=== PATIENT | male | born 1970 | race Caucasian/White ===

== ENCOUNTER 2024-03-16 20:05 | Emergency (ER) | payer BC, SELFPAY ==
[2024-03-16] VITALS (20 sets, daily range): BP systolic 121–148; BP diastolic 66–83; PULSE 49–66; RESP 16–18; TEMP 36.3; O2SAT 95–100; BMI 34.6
--- NOTE | 2024-03-16 20:52 | CRLHL7_ITS ---
For Patients: As a result of the Century Cures Act, medical imaging exams and procedure reports are released immediately into your electronic medical record. You may view this report before your referring provider. If you have questions, please contact your health care provider. INDICATION: Right upper quadrant pain, jaundice. TECHNIQUE: Ultrasound abdomen limited. Sonographic images of the right upper quadrant were obtained using santana-scale and color Doppler images. COMPARISON: None. FINDINGS: Liver: Diffuse increased hepatic echogenicity. No suspicious masses. No intrahepatic biliary dilatation. Gallbladder: Contains multiple stones and biliary sludge. Thickened gallbladder wall measuring 5 mm. No pericholecystic fluid identified. Negative sonographic Rodriguez`s sign. Common bile duct: At the upper limits of normal, measuring 7 mm. Pancreas: Not visualized due to bowel gas. Right kidney: Normal in size. Normal echotexture and cortex. No suspicious masses, stones, or hydronephrosis. Vasculature: Proximal IVC is unremarkable. IMPRESSION: 1. Cholelithiasis with thickened gallbladder wall. Despite negative sonographic Rodriguez`s, acute cholecystitis can not be entirely excluded. 2. Hepatic steatosis. Dictated by Dylan Villela MD @ 03/16/2024 11:41:51 PM (Electronically Signed)
--- NOTE | 2024-03-16 20:54 | ED_ITS ---
HPI - General Adult General Chief complaint: Weakness Stated complaint: Jaundice Time Seen by Provider: 03/16/24 20:30 Source: patient Mode of arrival: ambulatory Limitations: no limitations History of Present Illness HPI narrative: 54-year-old male presenting today to the ER because his family told him that he was yellow. Patient states that 1 week ago on Sunday he had an episode where he ate lunch and had terrible abdominal discomfort that lasted well into Sunday. Patient states that he feels bloated all the time and has felt that way since he was a kid but this abdominal pain was new. He does state that he drinks daily alcohol, slightly less than 1 L of hard liquor daily, stop drinking 12 days ago. He does have a history of GERD for which he takes esomeprazole. He states that he has been taking 3 per day for the last several days as he has been having increasing bloating. He states that about 2 weeks ago he had diarrhea and this has resolved. He states that he has small hard stools once or twice per day, few days ago he states that his stools were completely white. He denies vomiting but does feel nauseated on and off. He states that he has no appetite but does force himself to eat. He denies fevers or chills. He states that he abdominal pain is like a band that wraps around just underneath his ribs, the right side greater than the left. Patient also has a history of hypertension, he takes amlodipine, hydrochlorothiazide and lisinopril daily. He denies a history of intra-abdominal surgery in the past. Related Data Home Medications ?Medication ?Instructions ?Recorded ?Confirmed acid reflux med 03/16/24 amlodipine 10 mg tablet 10 mg PO DAILY 03/16/24 03/16/24 hydrochlorothiazide 25 mg tablet 25 mg PO DAILY 03/16/24 03/16/24 lisinopril 40 mg tablet 40 mg PO DAILY 03/16/24 03/16/24 Allergies Allergy/AdvReac Type Severity Reaction Status Date / Time No Known Drug Allergies Allergy Verified 03/16/24 20:25 Review of Systems Status of ROS: Reports: 10 or more systems reviewed and unremarkable except as noted in History and below PFSH PFSH Social History Smoking Status: Never smoker How often do you have a drink containing alcohol: 4 or more times a week AUDIT-C Alcohol total score: 4 Non-prescribed substance use: denies use Exam Narrative: Exam Narrative: Overweight, well-developed patient in no acute distress. Alert and oriented x3. Answers questions appropriately. Mood and affect are appropriate. Thoughts are goal oriented and rational. No tangential or magical thinking noted. Patient speaks in full sentences without needing to catch his breath. Well groomed. HEENT: Normocephalic atraumatic. Pupils are equally round reactive to light. Extraocular muscles are intact. Conjunctivae are moist , bilateral icterus noted. Moist mucous membranes. Posterior pharynx is normal. Neck is soft without any lymphadenopathy or thyromegaly. No masses are appreciated. Patient is lightly jaundice. Cardiovascular: Heart is regular rate and rhythm S1 and S2 are present without any murmurs. Lungs: Clear to auscultation bilaterally no wheezes rhonchi or rales are appreciated. Patient takes deep breaths without any discomfort. Abdomen: Soft and nondistended with normal bowel sounds. No guarding or rebound. No masses or organomegaly appreciated. Belly is protuberant. He has some very mild discomfort in the right upper quadrant with a negative Rodriguez sign. Extremities: Bilateral lower extremities are without edema. Normal DP and PT pulses. Skin: Well perfused . Patient has what appears to be around eczematous patch on the anterior left acevedo. Const: Vital Signs, click to edit/add: Vital Signs - 24 hr 03/16/24 20:26 03/16/24 20:52 03/16/24 21:19 Temperature 97.4 F L Pulse Rate 59 L Pulse Rate [Pulse Oximeter] 66 Respiratory Rate 18 16 Blood Pressure 134/78 Blood Pressure [Ri ght Upper Arm] 121/72 Pulse Oximetry 96 98 95 Oxygen Delivery Me thod Room Air 03/16/24 21:20 03/16/24 21:30 03/16/24 21:32 Temperature Pulse Rate 57 L 56 L 54 L Pulse Rate [Pulse Oximeter] Respiratory Rate 16 Blood Pressure 125/66 Blood Pressure [Ri ght Upper Arm] Pulse Oximetry 95 97 98 Oxygen Delivery Me thod 03/16/24 21:45 03/16/24 22:04 03/16/24 22:05 Temperature Pulse Rate 61 60 58 L Pulse Rate [Pulse Oximeter] Respiratory Rate 18 Blood Pressure 136/74 Blood Pressure [Ri ght Upper Arm] Pulse Oximetry 99 100 98 Oxygen Delivery Me thod 03/16/24 22:15 03/16/24 22:30 03/16/24 22:32 Temperature Pulse Rate 58 L 56 L 55 L Pulse Rate [Pulse Oximeter] Respiratory Rate 16 Blood Pressure 134/78 Blood Pressure [Ri ght Upper Arm] Pulse Oximetry 97 99 98 Oxygen Delivery Me thod Course Course ED Course: EKG, read by me, shows normal sinus rhythm with a pulse of 60. IV is established and patient received a L of normal saline. CBC is unremarkable. Normal lactate. Elevated LFTs, elevated direct bili Luis. CRP elevated at 3.5. Urinalysis positive for urine bilirubin. Right upper quadrant ultrasound showing cholelithiasis Vital Signs Vital signs: Initial Vital Signs Temperature 97.4 F L 03/16/24 20:26 Temperature Source Temporal Artery Scan 03/16/24 20:26 Pulse Rate 66 03/16/24 20:26 Respiratory Rate 18 03/16/24 20:26 Blood Pressure 121/72 03/16/24 20:26 Blood Pressure Mean 88 03/16/24 20:26 Blood Pressure Position Sitting 03/16/24 20:26 Pulse Oximetry 96 03/16/24 20:26 Oxygen Delivery Method Room Air 03/16/24 20:26 Vital Signs Temperature 97.4 F L 03/16/24 20:26 Pulse Rate 66 03/16/24 20:26 Respiratory Rate 18 03/16/24 20:26 Blood Pressure 121/72 03/16/24 20:26 Pulse Oximetry 96 03/16/24 20:26 Oxygen Delivery Method Room Air 03/16/24 20:26 Temperature 97.4 F L 03/16/24 20:26 Pulse Rate 55 L 03/16/24 22:32 Respiratory Rate 16 03/16/24 22:32 Blood Pressure 134/78 03/16/24 22:32 Pulse Oximetry 98 03/16/24 22:32 Oxygen Delivery Method Room Air 03/16/24 20:26 Medications Administered Medications: Discontinued Medications Generic Name Dose Route Start Last Admin Trade Name Freq PRN Reason Stop Dose Admin Sodium Chloride 1,000 mls @ 1,000 mls/hr 03/16/24 21:00 03/16/24 22:43 0.9 % Sodium Chloride 1000 Ml IV 03/16/24 21:59 Infused .Q1H KRYSTAL Infusion Medical Decision Making MDM Narrative Medical decision making narrative: 54-year-old male with cholelithiasis and probable choledocholithiasis. Patient will be transferred [place] [facility] [place]. Lab Data Lab results reviewed: Yes I reviewed the patient's lab results Labs: Lab Results 03/16/24 03/16/24 Range/Units 21:10 21:57 WBC 8.63 (4.50-11.00) K/uL RBC 4.68 (4.30-5.90) m/uL Hgb 14.6 (13.5-17.5) gm/dL Hct 42.8 (37.0-53.0) % MCV 92 (80-100) fL MCH 31 (26-34) pg MCHC 34 (32-36) gm/dL RDW Coeff of Luna 12.6 (11.5-15.5) % Plt Count 291 (140-440) K/uL Neut % (Auto) 78.3 H (42.0-72.0) % Lymph % (Auto) 10.0 L (20-44) % [place] % (Auto) 8.6 (0.0-11.0) % Eos % (Auto) 2.4 (0.0-7.0) % Baso % (Auto) 0.5 (0.0-3.0) % Neut # (Auto) 6.80 (1.7-7.0) K/uL Lymph # (Auto) 0.90 (0.90-2.90) K/uL [place] # (Auto) 0.70 (0.00-0.90) K/UL Eos # (Auto) 0.21 (0.00-0.50) K/uL Baso # (Auto) 0.04 (0.00-0.30) K/uL Abs Immat Gran (auto) 0.02 (0.00-0.30) K/uL Imm/Tot Granulo (auto) 0.2 % INR 1.01 (0.91-1.10) Sodium 131 L (135-149) mmol/L Potassium 3.3 L (3.6-5.1) mmol/L Chloride 91 L (96-114) mmol/L Carbon Dioxide 29 (20-32) mmol/L Anion Gap 11 (7-15) mEq/L BUN 16 (7-30) mg/dL Creatinine 1.0 (0.5-1.5) mg/dL Estimated Creat Clear 97.04 Estimated GFR 89 ml/min Glucose 119 H (60-115) mg/dL Lactate 1.3 (0.5-1.9) mmol/L Calcium 8.3 L (8.4-10.6) mg/dL Magnesium 2.4 (1.5-2.6) mg/dL Total Bilirubin 8.5 H (0.1-1.5) mg/dL Direct Bilirubin 7.4 H (0.0-0.5) mg/dL AST 269 H (12-35) U/L ALT 383 H (4-50) U/L Alkaline Phosphatase 154 H (40-150) U/L Troponin I < 0.01 L (0.01-0.04) ng/mL C-Reactive Protein 3.5 H (0.5-1.0) mg/dL Total Protein 8.2 (6.0-8.3) g/dL Albumin 4.3 (3.3-5.0) g/dL Lipase 146 (23-300) U/L Urine Color Yellow (Yellow) Urine Appearance Clear (Clear) Urine pH 7.0 (5.0-8.5) Ur Specific [place] 1.015 (1.000-1.030) Urine Protein Negative (Negative) Urine Glucose (UA) Negative (Negative) Urine Ketones Negative (Negative) Urine Blood Negative (Negative) Urine Nitrite Negative (Negative) Urine Bilirubin 3+ A (Negative) Urine Urobilinogen 1.0 (0.2-1.0) Ur Leukocyte Esterase Negative (Negative) Urine RBC 0-2 (0-2) Urine WBC 0-2 (0-5) Ur Squamous Epith Cells Moderate A (None-Few) Urine Bacteria None (None) Acetaminophen < 10.0 L (10.0-30.0) ug/mL Imaging Data US - abdomen: Attestation: I have reviewed the pertinent imaging results. Radiologist's impression: Right upper quadrant pain, jaundice. TECHNIQUE: Ultrasound abdomen limited. Sonographic images of the right upper quadrant were obtained using santana-scale and color Doppler images. COMPARISON: None. FINDINGS: Liver: Diffuse increased hepatic echogenicity. No suspicious masses. No intrahepatic biliary dilatation. Gallbladder: Contains multiple stones and biliary sludge. Thickened gallbladder wall measuring 5 mm. No pericholecystic fluid identified. Negative sonographic Rodriguez`s sign. Common bile duct: At the upper limits of normal, measuring 7 mm. Pancreas: Not visualized due to bowel gas. Right kidney: Normal in size. Normal echotexture and cortex. No suspicious masses, stones, or hydronephrosis. Vasculature: Proximal IVC is unremarkable. IMPRESSION: 1. Cholelithiasis with thickened gallbladder wall. Despite negative sonographic Rodriguez`s, acute cholecystitis can not be entirely excluded. 2. Hepatic steatosis. ECG Data Attestation: I personally reviewed and interpreted this ECG as follows: Discharge Plan Discharge Clinical Impression: Choledocholithiasis Patient Disposition: Xfer Other Discharge Location: [facility] Condition: Stable Prescriptions: No Action amlodipine 10 mg tablet 10 mg PO DAILY hydrochlorothiazide 25 mg tablet 25 mg PO DAILY lisinopril 40 mg tablet 40 mg PO DAILY acid reflux med Follow Up/Referrals: Javier Kilgore MD [Referring] - Stand Alone Forms: Pet[facility] Info Instructions
--- OUTSIDE RECORDS SUMMARY | 2024-03-16 21:07 | XMS_ITS | Referral Summary ---
Author Organization [facility] Address [address] [place] [id number] Care Team Providers Care Copyright Expert Name Role Phone Mikayla Concepcion MD Unavailable Clinic, [facility] [place] Primary Care Provider Allergies Active Allergy Reactions Criticality Noted Date Comments Omeprazole 08/04/2020 Patient states it gives him a lump in his throat Medications Medication Sig Dispensed Refills Start Date End Date Status RaNITidine HCl (ZANTAC PO) Take 150 mg by mouth Active lisinopril (ZESTRIL) 40 MG tabletIndications:Esse ntial hypertension Take 1 tablet (40 mg) by mouth daily 90 tablet 11/20/2022 Active hydrochlorothiazide (HYDRODIURIL) 25 MG tabletIndications:Esse ntial hypertension Take 1 tablet (25 mg) by mouth daily 90 tablet 11/20/2022 Active amLODIPine (NORVASC) 10 MG tabletIndications:Esse ntial hypertension Take 1 tablet (10 mg) by mouth daily 90 tablet 11/20/2022 Active Active Problems Problem Noted Date Diagnosed Date Morbid obesity 01/08/2018 Achilles tendinitis of both lower extremities GERD (gastroesophageal reflux disease) 2 Resolved Problems Problem Noted Date Diagnosed Date Resolved Date Backache 10/29/2012 12/25/2012 Overview: Problem list name updated by automated process. Provider to review CARDIOVASCULAR SCREENING; LD L GOAL LESS THAN 160 05/06/2012 02/07/2016 Hypertension goal BP (blood pressure) < 140/90 05/06/2012 05/19/2020 Obesity 05/06/2012 01/08/2018 Immunizations Name Administration Dates Next Due COVID-19 Monovalent 12+ (Pfizer 2021) 11/16/2021 COVID-19 Monovalent 18+ (Moderna) 01/07/2021, TDAP (Adacel,Boostrix) 11/16/2021,07/04/2011 Social History Tobacco Use Types Packs/Day Years Used Date Smoking Tobacco: Never Smokeless Tobacco: Former Chew Tobacco Cessation:Counseling Given: No Comments:quit chew 2 months ago Alcohol Use Standard Drinks/Week Comments Yes 0 (1 standard drink = 0.6 oz pur e alcohol) social PHQ-2 Answer Date Recorded PHQ-2 Score 0 11/16/2021 Adolescent Education Answer Date Record ed Getting School Help Needed Not on file 07/08 Sex and Gender Information Value Date Recorded Sex Assigned at Not on file Gender Identity Not on file Sexual Orientation Choose not to disclose 2021 10:09 AM CDT Last Filed Vital Signs Vital Sign Reading Time Taken Comments Blood Pressure 137/80 03/19/2023 12:29 AM CDT Pulse 72 03/19/2023 12:27 AM CDT Temperature 36.4 ??C (97.5 ??F) 03/19/2023 12:27 AM C DT Respiratory Rate 16 03/19/2023 12:27 AM CDT Oxygen Saturation 98% 03/19/2023 12:27 AM CDT Inhaled Oxygen Concentration - - Weight 147 kg (324 lb) 11/16/2021 10:40 AM FISH PROCESSOR Height 188 cm (6' 2) 11/16/2021 10:40 AM FISH PROCESSOR Body Mass Index 41.6 11/16/2021 10:40 AM FISH PROCESSOR Plan of Treatment Not on file Procedures Procedure Name Priority Date/Time Associated Diagnosis Comments HEPATITIS C SCREEN REFLEX TO HCV RNA QUANT AND GENOTYPE Routine 11/16/2021 2:54 PM FISH PROCESSOR Need for hepatitis C screening test LIPID REFLEX TO DIRECT LDL PANEL Routine 11/16/2021 11:32 AM FISH PROCESSOR Essential hypertension BASIC METABOLIC PANEL Routine 11/16/2021 11:32 AM FISH PROCESSOR Essential hypertension COLONOSCOPY Routine 03/07/2016 11:08 AM CDT from Last 3 Months or Most Recently Relevant to Health Maintenance Results * Hepatitis C Screen Reflex to HCV RNA Quant and Genotype (11/16/2021 2:54 PM FISH PROCESSOR) Hepatitis C Antibody Nonreactive Nonreactive 11/18/2021 9:12 AM FISH PROCESSOR [facility] DO Blood VENOUS BLOOD / Unknown Venipuncture / Unknown 11/16/2021 2:54 PM FISH PROCESSOR 11/16/2021 2:54 PM FISH PROCESSOR Narrative [facility] - 11/18/2021 9:12 AM FISH PROCESSOR Assay performance characteristics have not been established for newborns, infants, and children. Kenneth Giles MD LAB - BLOOD ORDERABL ES [facility], Room [address] [phone] * Lipid panel reflex to direct LDL Fasting (11/16/2021 11:32 AM FISH PROCESSOR) Cholesterol 188 <200 mg/dL 11/17/2021 7:58 AM FISH PROCESSOR [facility] Triglycerides 111 <150 mg/dL 11/17/2021 7:58 AM FISH PROCESSOR [facility] Direct Measure HDL 70 >=40 mg/dL 11/17/2021 7:58 AM FISH PROCESSOR [facility] LDL Cholesterol Calculated 96 <=100 mg/dL 11/17/2021 7:58 AM FISH PROCESSOR [facility] Non HDL Cholesterol 118 <130 mg/dL 11/17/2021 7:58 AM FISH PROCESSOR [facility] Patient Fasting > 8hrs? Unknown 11/17/2021 7:58 AM FISH PROCESSOR [facility] Blood BLOOD SPECIMEN / Unknown Venipuncture / Unknown 11/16/2021 11:32 AM FISH PROCESSOR 11/16/2021 11:32 AM FISH PROCESSOR Narrative [facility] - 11/17/2021 7:58 AM FISH PROCESSOR Cholesterol Desirable: ??<200 mg/dL Triglycerides Normal: ??Less than 150 mg/dL Borderline High: ??150-199 mg/dL High: ??200-499 mg/dL Very High: ??Greater than or equal to 500 mg/dL Direct Measure HDL Female: ??Greater than or equal to 50 mg/dL Male: ??Greater than or equal to 40 mg/dL LDL Cholesterol Desirable: ??<100mg/dL Above Desirable: ??100-129 mg/dL Borderline High: ??130-159 mg/dL High: ??160-189 mg/dL Very High: ??>= 190 mg/dL Non HDL Cholesterol Desirable: ??130 mg/dL Above Desirable: ??130-159 mg/dL Borderline High: ??160-189 mg/dL High: ??190-219 mg/dL Very High: ??Greater than or equal to 220 mg/dL Kenneth Giles MD LAB - BLOOD ORDERABL ES [facility] [address] Lab (no room number, 1st floor of clinic) [place] [address], [facility] [phone] * (ABNORMAL) Basic metabolic panel (Ca, Cl, CO2, Creat, Gluc, K, Na, BUN) (11/16/2021 11:32 AM FISH PROCESSOR) Sodium 134 133 - 144 mmol/L 11/17/2021 7:56 AM [email or web address] Potassium 3.3(L) 3.4 - 5.3 mmol/L 11/17/2021 7:56 AM FISH PROCESSOR [facility] Chloride 100 94 - 109 mmol/L 11/17/2021 7:56 AM FISH PROCESSOR [facility] Carbon Dioxide (CO2) 28 20 - 32 mmol/L 11/17/2021 7:56 AM FISH PROCESSOR [facility] Anion Gap 6 3 - 14 mmol/L 11/17/2021 7:56 AM FISH PROCESSOR [facility] Urea Nitrogen 14 7 - 30 mg/dL 11/17/2021 7:56 AM FISH PROCESSOR [facility] Creatinine 0.85 0.66 - 1.25 mg/dL 11/17/2021 7:56 AM FISH PROCESSOR [facility] Calcium 8.6 8.5 - 10.1 mg/dL 11/17/2021 7:56 AM FISH PROCESSOR [facility] Glucose 112(H) 70 - 99 mg/dL 11/17/2021 7:56 AM FISH PROCESSOR [facility] GFR Estimate >90 >60 mL/min/1.7 3m2 11/17/2021 7:56 AM FISH PROCESSOR [facility] Comment:Effective August 252020 eGFRcr in adults is calculated using the 2020 CKD-EPI creatinine equation which includes age and gender (Tabatha et al., NEJM, DOI: 10.1056/OZNBdx2430179) Blood BLOOD SPECIMEN / Unknown Venipuncture / Unknown 11/16/2021 11:32 AM FISH PROCESSOR 11/16/2021 11:32 AM FISH PROCESSOR Kenneth Giles MD LAB - BLOOD ORDERABL ES [facility] Lab [address] [place] [address] Lab (no room number, 1st floor of clinic) [place] [address], [facility] [phone] * COLONOSCOPY (03/07/2016 11:08 AM CDT) COLONOSCOPY [facility] Patient Name: Narciso Resendiz ?Procedure Date: 03/07/2016 11:08 AM ? Date of : 1970 ?Admit Type: Outpatient Age: 46 ? Gender: Male Attending MD: Pelon Taylor MD ?Instrument Name: 136 Procedure: ?Colonoscopy Indications: ?Screening patient at increased risk: Family history ?1st-degree relative with colorectal cancer >= 60 ?years old Providers: ?Pelon Taylor MD, Linda Ashley RN (Nurse) Referring MD: ? Kenneth Giles MD Medicines: ?Midazolam 2 mg IV, Fentanyl 100 micrograms IV Complications: ?No immediate complications. Procedure: ?Pre-Anesthesia Assessment: ?- Prior to the procedure, a History and Physical ?was performed, and patient medications and ?allergies were reviewed. The patient is competent. ?The risks and benefits of the procedure and the ?sedation options and risks were discussed with the ?patient. All questions were answered and informed ?consent was obtained. Patient identification and ?proposed procedure were verified by the physician ?in the procedure room. Mental Status Examination: ?alert and oriented. Airway Examination: normal ?oropharyngeal airway and neck mobility. Respiratory ?Examination: clear to auscultation. CV Examination: ?normal. Prophylactic Antibiotics: The patient does ?not require prophylactic antibiotics. Prior ?Anticoagulants: The patient has taken no previous ?anticoagulant or antiplatelet agents. ASA Grade ?Assessment: I - A normal, healthy patient. After ?reviewing the risks and benefits, the patient was ?deemed in satisfactory condition to undergo the ?procedure. The anesthesia plan was to use moderate ?sedation / analgesia (conscious sedation). ?Immediately prior to administration of medications, ?the patient was re-assessed for adequacy to receive ?sedatives. The heart rate, respiratory rate, oxygen ?saturations, blood pressure, adequacy of pulmonary ?ventilation, and response to care were monitored ?throughout the procedure. The physical status of ?the patient was re-assessed after the procedure. ?After obtaining informed consent, the colonoscope ?was passed under direct vision. Throughout the ?procedure, the patient's blood pressure, pulse, and ?oxygen saturations were monitored continuously. The ?[id number] was introduced through the anus and ?advanced to the cecum, identified by appendiceal ?orifice and ileocecal valve. The colonoscopy was ?performed without difficulty. The patient tolerated ?the procedure well. The quality of the bowel ?preparation was good. ? Findings: ? The perianal and digital rectal examinations were normal. ? The entire examined colon appeared normal on direct and retroflexion ? views. ? Impression: ? - The entire examined colon is normal on direct and ?retroflexion views. Recommendation: ? - Repeat colonoscopy in 5 years for surveillance. ? Procedure Code(s): ? --- Professional --- ? G0105, Colorectal cancer screening; colonoscopy on individual at high ? risk Diagnosis Code(s): ? --- Professional --- ? Z80.0, Family history of malignant neoplasm of digestive organs CPT copyright 2013 [employer] [place] [employer]. All rights reserved. The codes documented in this report are preliminary and upon certified procedural coder review may be revised to meet current compliance requirements. Electronically signed by Pelon Taylor MD __ Pelon Taylor MD 03/07/2016 12:53 PM I was physically present for the entire viewing portion of the exam. Number of Addenda: 0 Note Initiated On: 03/07/2016 11:08 AM MRN: [id number] Procedure Date: ? 03/07/2016 11:08:07 AM Scope Withdrawal Time: 0 hours 6 minutes 22 seconds Total Procedure Duration: 0 hours 11 minutes 39 seconds Estimated Blood Loss: ? Scope In: 12:33:30 PM Scope Out: 12:45:09 PM RADIOLOGY RESULTS 03/07/2016 11:0 8 AM CDT Kenneth Glies MD PROCEDURES RADIOLOGY RESULTS from Last 3 Months or Most Recently Relevant to Health Maintenance Care Teams Copyright Expert Relationship Specialty Start Date End Date [facility], [facility] [address] [place] [address] PCP - General 03/19/23 [place] [id number] [place] [address] Assigned PCP 04/08/22
--- OUTSIDE RECORDS SUMMARY | 2024-03-16 21:07 | XMS_ITS | Encounter Summary ---
Author Organization [place] Address [address] [place] [address] Care Team Providers Care Booking Manager Name Role Phone Kenneth Giles MD Primary Care Provider [phone] Tammy Sinclair APRN KELP OR SEAGRASS GATHERER Unavailable + Kenneth Giles MD Unavailable [phone] Mikayla Concepcion MD Unavailable Kenneth Giles MD Unavailable [phone] Mikayla Concepcion MD Unavailable Kenneth Giles MD Unavailable +[phone] Mikayla Concepcion MD Unavailable [facility] Primary Care Provider Encounter Details Date Type Department Care Team (Late st Contact Info) Description 03/17/2019 [facility] Medical Advice [facility] [id number] [place] [address] Carrol Rosenberg Social History Tobacco Use Types Packs/Day Years Used Date Smoking Tobacco: Never Smokeless Tobacco: Former Chew Comments:quit chew 2 months ago Alcohol Use Standard Drinks/Week Comments Yes 0 (1 standard drink = 0.6 oz pur e alcohol) social PHQ-2 Answer Date Recorded PHQ-2 Score 0 10/01/2018 Sex and Gender Information Value Date Recorded Sex Assigned at Not on file Gender Identity Not on file Sexual Orientation Choose not to disclose 2021 10:09 AM CDT documented as of this encounter Plan of Treatment Not on file documented as of this encounter Visit Diagnoses Not on filedocumented in this encounter Care Teams Booking Manager Relationship Specialty Start Date End Date Kenneth Giles MD PCP - General Family Practice 05/13/13 07/23/22 [facility] [address] [place] [address] PCP - General 03/19/23 Tammy Sinclair APRN KELP OR SEAGRASS GATHERER [address] [place] [address] Assigned PCP 01/12/19 10/25/19 [place] [address] [place] [address] Assigned PCP 10/26/19 05/21/21 [place] [address] [place] [address] Assigned PCP 05/22/21 10/01/21 [place] [address] [place] [address] Assigned PCP 10/02/21 11/19/21 [place] [address] [place] [address] Assigned PCP 11/20/21 11/26/21 [place] [address] [place] [address] Assigned PCP 11/27/21 04/07/22 [place] [address] [place] [address] Assigned PCP 04/08/22 documented as of this encounter
--- OUTSIDE RECORDS SUMMARY | 2024-03-16 21:07 | XMS_ITS | Clinical Summary ---
Author Organization [facility] Address [place], [place] [address] Care Team Providers Care Commercial Singer Name Role Phone Kenneth Giles MD Primary Care Provider [phone] Allergies Active Allergy Reactions Criticality Noted Date Comments Unlisted Allergen (Include Detail In Comments) Runny Nose 09/02/2012 Dust hayfever cats dogs ragwee Medications Medication Sig Dispensed Refills Start Date End Date Status amLODIPine (NORVASC) 10 mg tabletIndications:Esse ntial hypertension Take 1 Tablet (10 mg) by mouth once daily. 100 Tablet 2 05/23/2023 Active lisinopriL (PRINIVIL; ZESTRIL) 40 mg tabletIndications:Prim argenis hypertension Take 1 Tablet (40 mg) by mouth once daily. 90 Tablet 4 06/05/2023 Active hydroCHLOROthiazide (HCTZ) 25 mg tabletIndications:Prim argenis hypertension Take 1 Tablet (25 mg) by mouth once daily. 90 Tablet 4 06/05/2023 Active Active Problems Problem Noted Date Diagnosed Date Primary hypertension 06/05/2023 Resolved Problems Problem Noted Date Diagnosed Date Resolved Date HYPERTENSION - ESSENTIAL 11/06/200503/2023 Immunizations Name Administration Dates Next Due COVID-19 vaccine (Moderna 100mcg/0.5mL) KENYON RENAE 01/07/2021,12/10/2020 COVID-19 vaccine ([email or web address]-Bio NTech 30mcg/0.3mL) 12YO+ MASHA-SUCROSE KENYON RENAE 11/16/2021 Tdap 11/16/2021,07/04/2011 Family History Medical History Relation Name Comments Cancer-colon Father Genetic Other Father : HTN.~M other: Had breast cancer.~No CAD.~Grandparents : Lung cancer.~2 sister. 2 brothers Arthritis Sister Asthma Sister Hypertension Sister Relation Name Status Comments Brother 1 Alive Brother 2 Alive Father Mother Other Sister Alive Social History Tobacco Use Types Packs/Day Years Used Date Smoking Tobacco: Never Smokeless Tobacco: Former Chew Comments:quit chew 2002 Alcohol Use Standard Drinks/Week Comments Yes 0 (1 standard drink = 0.6 oz pur e alcohol) rare, Alcoholic Drinks/day: 0 Social Connections Answer Date Recorded Frequency of Communication with Friends and Fami ly 0 06/05/2023 Financial Resource Strain Answer Date R ecorded Difficulty of Paying Living Expenses 3 06/05/2023 Difficulty of Paying Living Expenses Not on file 06/05/2023 Food Insecurity Answer Date Recorded Worried About Running Out of Food in the Last Ye ar 1 06/05/2023 Transportation Needs Answer Date Record ed Lack of Transportation (Medical) 1 06/05/2023 Housing Stability Answer Date Recorded Unable to Pay for Housing in the Last Year 1 06/05/2023 Sex and Gender Information Value Date Recorded Sex Assigned at Not on file Gender Identity Not on file Sexual Orientation Not on file Obstetrics History Last Filed Vital Signs Vital Sign Reading Time Taken Comments Blood Pressure 130/80 06/05/2023 12:41 PM CDT Pulse 88 06/05/2023 12:41 PM CDT Temperature 36.8 ??C (98.2 ??F) 02/18/2021 1:50 PM CD T Respiratory Rate 16 02/18/2021 2:20 PM CDT Oxygen Saturation 97% 02/27/2023 11:59 AM CDT Inhaled Oxygen Concentration - - Weight 135.2 kg (298 lb) 06/05/2023 12:41 PM CDT Height 190.5 cm (6' 3) 06/05/2023 12:41 PM CDT Body Mass Index 37.25 06/05/2023 12:41 PM CDT Plan of Treatment Health Maintenance Due Date Last Done Comments Depression screening for age 12+ 1981 HIV for age 15-65 02/10/1984 Lipids for age 45-75 2014 11/06/2005 Zoster (shingles) series for age 50+ (1 of 2) 2019 COVID-19 vaccine series ( season) 2023 11/16/2021, 01/07/2021, 12/10/2020 Influenza for age 50-64 05/25/2024 BMI (ht and wt on same day) for age 18+ 06/05/2024 06/05/2023, 03/30/2023, 02/27/2023 Colonoscopy through age 75 03/07/202603/07 (Verified in Care Everywhere or Patient Record) Tetanus booster 11/16/2031 11/16/2021, 07/04/2011 Hepatitis C screening for age 18-79 Addressed 11/16/2021 (Verified in Care Everywhere or Patient Record) Overridden with the intention of not completing the topic Tdap Completed 11/16/2021, 07/04/2011 Pneumococcal series for age 6-64 Aged Out No longer eligible b ased on patient's age to complete this topic Medical Devices Implanted Type Area External Grinder Tender Device Identifier Shelf Expiration Date Model / Serial / Lot Ancr Sut [id number] Swivelock Dbl Loaded - [id number] Implanted:Qty: 2 on 02/18/2021 by Jose Alberto Rosario MD at [facility] Right: Shoulder [employer] 11/21/2024 [id number] -2 / / [id number] Ancr Sut 4.75x19.1mm Speedbridge Swivelock Biocomposite - [id number] Implanted:Qty: 1 on 02/18/2021 by Jose Alberto Rosario MD at [facility] Right: Shoulder [employer] 09/23/2024 [id number] -4 / / [id number] Procedures Procedure Name Priority Date/Time Associated Diagnosis Comments LIPID PANEL Timed 11/06/2005 1:26 PM [facility] from Last 3 Months or Most Recently Relevant to Health Maintenance Results * LIPID PANEL (11/06/2005 1:26 PM [facility]) CHOLESTEROL,TOTAL 168 110 - 199 mg/dL [facility] TRIGLYCERIDES 57 40 - 149 mg/dL [facility] HDL CHOLESTEROL 43 >40 mg/dL [facility] CHOL/HDL RATIO 3.91 <4.51 [facility] LDL CHOLESTEROL 114 <131 mg/dL [facility] PATIENT STATUS Fasting [facility] 11/06/2005 1:26 PM [facility] 11/06/2005 6:43 PM [facility] Merrill Lawson MD [facility] INTERNAL ZIP [address] [address] from Last 3 Months or Most Recently Relevant to Health Maintenance Advance Directives * Full Code (Latest Code Status on File) Date Activated Date Inactivated Comments 02/18/2021 9:53 AM 02/18/2021 5:02 PM Admitted for surgical management, assume full code during operative period Question Answer Comments Code Status Discussion: Not Discussed * Full Code Date Activated Date Inactivated Comments 09/03/2012 7:25 AM 09/03/2012 2:47 PM Care Teams Commercial Singer Relationship Specialty [place] [address] [place] [address] PCP - General Family Practice 02/27/23
--- OUTSIDE RECORDS SUMMARY | 2024-03-16 21:07 | XMS_ITS | Encounter Summary ---
Author Organization [place] Address [address] [place] [address] Care Team Providers Care Crew Dispatcher Name Role Phone Kenneth Giles MD Primary Care Provider + [phone] Kenneth Giles MD Unavailable [phone] Mikayla Concepcion MD Unavailable Kenneth Giles MD Unavailable [phone] Mikayla Concepcion MD [facility] [place] Primary Care Provider Encounter Details Date Type Department Care Team (Late st Contact Info) Description 11/17/2021 [facility] [address] [address] Nathalia Vasquez MA Social History Tobacco Use Types Packs/Day Years Used Date Smoking Tobacco: Never Smokeless Tobacco: Former Chew Comments:quit chew 2 months ago Alcohol Use Standard Drinks/Week Comments Yes 0 (1 standard drink = 0.6 oz pur e alcohol) social PHQ-2 Answer Date Recorded PHQ-2 Score 0 11/16/2021 Sex and Gender Information Value Date Recorded Sex Assigned at Not on file Gender Identity Not on file Sexual Orientation Choose not to disclose 2021 10:09 AM CDT COVID-19 Exposure Response Date Recorded In the last month, have you been in contact with someone who was confirmed or suspected to have Coronavirus / COVID-19? No / Unsure 11/16/2021 10:26 AM DOLL SURGEON documented as of this encounter Plan of Treatment Not on file documented as of this encounter Visit Diagnoses Not on filedocumented in this encounter Care Teams Crew Dispatcher Relationship Specialty Start Date End Date Kenneth Giles MD PCP - General Family Practice 05/13/13 07/23/22 [facility] [address] [place] [address] PCP - General 03/19/23 [place] [address] [place] [address] Assigned PCP 10/02/21 11/19/21 [place] [address] [place] [address] Assigned PCP 11/20/21 11/26/21 [place] [address] [place] [address] Assigned PCP 11/27/21 04/07/22 [place] [address] [place] [address] Assigned PCP 04/08/22 documented as of this encounter
--- OUTSIDE RECORDS SUMMARY | 2024-03-16 21:07 | XMS_ITS | Encounter Summary ---
Author Organization [place] Address [address] [place] [address] Care Team Providers Care Microbiology Technologist Name Role Phone Kenneth Giles MD Primary Care Provider Tammy Sinclair APRN LOAN AND CREDIT MANAGER Unavailable + Kenneth Giles MD Unavailable [phone] Mikayla Concepcion MD Unavailable Kenneth Giles MD Unavailable [phone] Mikayla Concepcion MD Unavailable Kenneth Giles MD Unavailable [phone] Mikayla Concepcion MD [facility] [place] [facility] Provider Encounter Details Date Type Department Care Team (Late st Contact Info) Description 07/01/2019 [facility]ice [address], [address] [place] [address] Hansa Pedersen, EDITING INTER[employer]IP Social History Tobacco Use Types Packs/Day Years Used Date Smoking Tobacco: Never Smokeless Tobacco: Former Chew Comments:quit chew 2 months ago Alcohol Use Standard Drinks/Week Comments Yes 0 (1 standard drink = 0.6 oz pur e alcohol) social PHQ-2 Answer Date Recorded PHQ-2 Score 0 04/08/2019 Sex and Gender Information Value Date Recorded Sex Assigned at Not on file Gender Identity Not on file Sexual Orientation Choose not to disclose 2021 10:09 AM CDT documented as of this encounter Plan of Treatment Not on file documented as of this encounter Visit Diagnoses Not on filedocumented in this encounter Care Teams Microbiology Technologist Relationship Specialty Start Date End Date Kenneth Giles MD PCP - General Family Practice 05/13/13 [facility] [address] [place] [address] PCP - General 03/19/23 Tammy Sinclair APRN LOAN AND CREDIT MANAGER [address] [place] [address] Assigned PCP 01/12/19 10/25/19 [place] [address] [place] [address] Assigned PCP 10/26/19 05/21/21 [place] [address] [place] [address] Assigned PCP 05/22/21 10/01/21 [place] [address] [place] [address] Assigned PCP 10/02/21 11/19/21 [place] [address] [place] [address] Assigned PCP 11/20/21 11/26/21 [place] [address] [place] [address] Assigned PCP 11/27/21 04/07/22 [place] [address] [place] [address] Assigned PCP 04/08/22 documented as of this encounter
--- OUTSIDE RECORDS SUMMARY | 2024-03-16 21:07 | XMS_ITS | Encounter Summary ---
Author Organization [place] Address [address] [place] [address] Care Team Providers Care Locomotive Crane Operator Helper Name Role Phone Kenneth Giles MD Primary Care Provider + [phone] Kenneth Giles MD Unavailable [phone] Mikayla Concepcion MD Unavailable Kenneth Giles MD Unavailable [phone] Mikayla Concepcion MD Unavailable Kenneth Giles MD Unavailable [phone] Mikayla Concepcion MD Unavailable [facility] [place] Primary Care Provider Encounter Details Date Type Department Care Team (Late st Contact Info) Description 02/17/2021 [facility] Advice [address] [address] Keagan Weaver, RN Social History Tobacco Use Types Packs/Day Years Used Date Smoking Tobacco: Never Smokeless Tobacco: Former Chew Comments:quit chew 2 months ago Alcohol Use Standard Drinks/Week Comments Yes 0 (1 standard drink = 0.6 oz pur e alcohol) social PHQ-2 Answer Date Recorded PHQ-2 Score 0 02/14/2021 Sex and Gender Information Value Date Recorded Sex Assigned at Not on file Gender Identity Not on file Sexual Orientation Choose not to disclose 2021 10:09 AM CDT COVID-19 Exposure Response Date Recorded In the last month, have you been in contact with someone who was confirmed or suspected to have Coronavirus / COVID-19? No / Unsure 02/14/2021 4:25 PM CDT documented as of this encounter Plan of Treatment Not on file documented as of this encounter Visit Diagnoses Not on filedocumented in this encounter Care Teams Locomotive Crane Operator Helper Relationship Specialty Start Date End Date Kenneth Giles MD PCP - General Family Practice 05/13/13 07/23/[address] [facility] [address] [address] PCP - General 03/19/23 [place] [address] [place] [address] Assigned PCP 10/26/19 05/21/21 [place] [address] [place] [address] Assigned PCP 05/22/21 10/01/21 [place] [address] [address] [place] [address] Assigned PCP 10/02/21 11/19/21 [place] [address] [place] [address] Assigned PCP 11/20/21 11/26/21 [place] [address] [place] [address] Assigned PCP 11/27/21 04/07/22 [place] [address] [place] [address] Assigned PCP 04/08/22 documented as of this encounter
--- OUTSIDE RECORDS SUMMARY | 2024-03-16 21:07 | XMS_ITS | Encounter Summary ---
Author Organization [place] Address [address] [place] [address]. [place] [address] Care Team Providers Care Pea Viner Mechanic Name Role Phone Kenneth Giles MD Primary Care Provider Tammy Sinclair APRN [place]AL Unavailable + Kenneth Giles MD Unavailable [phone] Mikayla Concepcion MD Unavailable Kenneth Giles MD Unavailable [phone] Mikayla Concepcion MD Unavailable Kenneth Giles MD Unavailable [phone] Mikayla Concepcion MD [facility]available [facility] [place] Primary Care Provider Encounter Details Date Type Department Care Team (Late st Contact Info) Description 08/05/2019 [facility] [address] [place] [address] [place] [address] [place] [address] Social History Tobacco Use Types Packs/Day Years [...] on filedocumented in this encounter Care Teams Pea Viner Mechanic Relationship Specialty Start Date End Date Kenneth Giles MD PCP - General Family Practice 05/13/13 07/23/22 [facility] [address] [place] [address] PCP - General 03/19/23 Tammy Sinclair APRN [facility] [address] [place] [address] Assigned PCP 01/12/19 10/25/19 [place] [address] [place] [address] Assigned PCP 10/26/19 05/21/21 [place] [address] [place] [address] Assigned PCP 05/22/21 10/01/21 [place] [address] [address] [place] [address] Assigned PCP 10/02/21 11/19/21 [place] [address] [place] [address] Assigned PCP 11/20/21 11/26/21 [place] [address] [place] [address] Assigned PCP 11/27/21 04/07/22 [place] [address] [place] [address] Assigned PCP 04/08/22 documented as of this encounter
--- OUTSIDE RECORDS SUMMARY | 2024-03-16 21:07 | XMS_ITS | Encounter Summary ---
Author Organization [place] Address [address] [place] [address] Care Team Providers Care Asset Protection Agent Name Role Phone Kenneth Giles MD Primary Care Provider + [phone] Kenneth Giles MD Unavailable [phone] Mikayla Concepcion MD Unavailable Kenneth Giles MD Unavailable [phone] Mikayla Concepcion MD Unavailable Kenneth Giles MD Unavailable [phone] Mikayla Concepcion MD [facility]available [facility] Provider Reason for Visit * Reason Comments Medication Refill Encounter Details Date Type Department Care Team (Late st Contact Info) Description 04/19/2020 Refill [facility] [id number] [place] [address] [place] [address] [place] [address] Medication Refill Social History Tobacco Use Types Packs/Day Years [...] have Coronavirus / COVID-19? No / Unsure 04/19/2020 1:58 PM CDT documented as of this encounter Miscellaneous Notes * Telephone Encounter - Barb Easley RN - 04/19/2020 1:50 PM CDT Routing refill request to provider for review/approval because: Labs not current: All labs Patient needs to be seen because it has been more than 1 year since last office visit. Pt is aware and is trying to schedule an appt Barb Easley RN, BSN documented in this encounter Plan of Treatment Not on file documented as of this encounter Visit Diagnoses Diagnosis Hypertension goal BP (blood pressure) < 140/90 Unspecified essential hypertension documented in this encounter Care Teams Asset Protection Agent Relationship Specialty Start Date End Date Kenneth Giles MD PCP - General Family Practice 05/13/13 07/23/22 [facility] [address] [place] [address] PCP - General 03/19/23 [place] [address] [place] [address] Assigned PCP 10/26/19 05/21/21 [place] [address] [place] [address] Assigned PCP 05/22/21 10/01/21 [place] [address] [place] [address] Assigned PCP 10/02/21 11/19/21 [place] [address] [place] [address] Assigned PCP 11/20/21 11/26/21 [place] [address] [place] [address] Assigned PCP 11/27/21 04/07/22 [place] [address] [place] [address] Assigned PCP 04/08/22 documented as of this encounter
--- OUTSIDE RECORDS SUMMARY | 2024-03-16 21:07 | XMS_ITS | Clinical Summary ---
Author Organization [facility] Address [address] [place] [address] Care Team Providers Care News Wire Photo Operator Name Role Phone Mikayla Concepcion MD Unavailable Clinic, [facility] [place] Primary Care Provider Allergies Active Allergy Reactions [...] Monovalent 18+ (Moderna) 01/07/2021, TDAP (Adacel,Boostrix) 11/16/2021,07/04/2011 Family History Medical History Relation Comments Cancer - colorectal Father Hypertension Father Cancer Maternal Grandfather Cancer Maternal Grandmother Diabetes Maternal Grandmother Breast Cancer Mother Cancer Paternal Grandfather Cancer - colorectal Paternal Grandfather Cancer Paternal Grandmother Relation Status Comments Father Maternal Grandfather Maternal Grandmother Mother Paternal Grandfather Paternal Grandmother Social History Tobacco Use Types Packs/Day Years [...] 147 kg (324 lb) 11/16/2021 10:40 AM GIMP TACKER Height 188 cm (6' 2) 11/16/2021 10:40 AM GIMP TACKER Body Mass Index 41.6 11/16/2021 10:40 AM GIMP TACKER Plan of Treatment Health Maintenance Due Date Last Done Comments CT COLONOGRAPHY 1969 FIT 1969 FLEX SIG 1969 sDNA (Cologuard) 1969 HEPATITIS B IMMUNIZATION (1 of 3 - 19+ 3-dose series) 02/10/1988 ZOSTER IMMUNIZATION (1 of 2) 2019 YEARLY PREVENTIVE VISIT 04/08/2020 04/08/20 19, 02/07/2016, 02/03/2015 COLONOSCOPY 03/07/2021 03/07/2016, 03/07/2016 COLORECTAL CANCER SCREENING 03/07/2021 ANNUAL REVIEW OF HM ORDERS 11/16/2022 11/16/2021 BMP 11/16/2022 11/16/2021, 01/23, 05/19/2020, Additional history exists COVID-19 Vaccine ( season) 2023 11/16/2021, 01/07/2021, 12/10/2020 PHQ-2 (once per calendar year) 2023 11/16/2021, 02/14/2021, 05/19/2020, Additional history exists INFLUENZA VACCINE (Season Ended) 2024 07/04/2018 (Declined) GLUCOSE 11/16/2024 11/16/2021, 01/23, 05/19/2020, Additional history exists ADVANCE CARE PLANNING 02/14/2026 02/14/2021 LIPID 11/16/2026 11/16/2021, 03/24, 02/07/2016, Additional history exists DTAP/TDAP/TD IMMUNIZATION (3 - Td or Tdap) 11/16/2031 11/16/2021, 07/04/2011 HIV SCREENING Completed 04/08/2014 HEPATITIS C SCREENING Completed 11/16/2021 HPV IMMUNIZATION Aged Out No longer e ligible based on patient's age to complete this topic IPV IMMUNIZATION Aged Out No longer e ligible based on patient's age to complete this topic MENINGITIS IMMUNIZATION Aged Out No l onger eligible based on patient's age to complete this topic Pneumococcal Vaccine: Pediatrics (0 to 5 Years) and At-Risk Patients (6 to 64 Years) Aged Out No longer eligible based on patient's age to complete this topic RSV MONOCLONAL ANTIBODY Aged Out No l onger eligible based on patient's age to complete this topic Procedures Procedure Name Priority Date/Time Associated Diagnosis Comments HEPATITIS C SCREEN REFLEX TO HCV RNA QUANT AND GENOTYPE Routine 11/16/2021 2:54 PM GIMP TACKER Need for hepatitis C screening test LIPID REFLEX TO DIRECT LDL PANEL Routine 11/16/2021 11:32 AM GIMP TACKER Essential hypertension BASIC METABOLIC PANEL Routine 11/16/2021 11:32 AM GIMP TACKER Essential hypertension COLONOSCOPY Routine 03/07/2016 11:08 AM CDT from Last 3 Months or Most Recently Relevant to Health Maintenance Results * Hepatitis C Screen Reflex to HCV RNA Quant and Genotype (11/16/2021 2:54 PM GIMP TACKER) Hepatitis C Antibody Nonreactive Nonreactive 11/18/2021 9:12 AM GIMP TACKER [facility]/EN DO Blood VENOUS BLOOD / Unknown Venipuncture / Unknown 11/16/2021 2:54 PM GIMP TACKER 11/16/2021 2:54 PM GIMP TACKER Narrative [facility] CORE/PROT/ENDO - 11/18/2021 9:12 AM GIMP TACKER Assay performance characteristics have not been established for newborns, infants, and children. Kenneth Giels MD LAB - BLOOD ORDERABL ES [facility] SPECIAL[facility] CORE/PROT/ENDO [facility] Special[facility] Core/Prot/Endo [address] [facility], Room [address] [phone] * Lipid panel reflex to direct LDL Fasting (11/16/2021 11:32 AM GIMP TACKER) Cholesterol 188 <200 mg/dL 11/17/2021 7:58 AM GIMP TACKER [facility] Triglycerides 111 <150 mg/dL 11/17/2021 7:58 AM GIMP TACKER [facility] Direct Measure HDL 70 >=40 mg/dL 11/17/2021 7:58 AM GIMP TACKER [facility] LDL Cholesterol Calculated 96 <=100 mg/dL 11/17/2021 7:58 AM GIMP TACKER [facility] Non HDL Cholesterol 118 <130 mg/dL 11/17/2021 7:58 AM GIMP TACKER [facility] Patient Fasting > 8hrs? Unknown 11/17/2021 7:58 AM GIMP TACKER [facility] Blood BLOOD SPECIMEN / Unknown Venipuncture / Unknown 11/16/2021 11:32 AM GIMP TACKER 11/16/2021 11:32 AM GIMP TACKER Narrative OX LABORATORY - 11/17/2021 7:58 AM GIMP TACKER Cholesterol Desirable: ??<200 mg/dL Triglycerides Normal: ??Less [...] LAB - BLOOD ORDERABL ES [facility] LAB[facility]ATORY [facility] [address] Lab (no room number, 1st floor of clinic) [place] [address], [facility] [phone] * (ABNORMAL) Basic metabolic panel (Ca, Cl, CO2, Creat, Gluc, K, Na, BUN) (11/16/2021 11:32 AM GIMP TACKER) Pathologist [facility] Sodium 134 133 - 144 mmol/L 11/17/2021 7:56 AM GIMP TACKER [facility] Potassium 3.3(L) 3.4 - 5.3 mmol/L 11/17/2021 7:56 AM GIMP TACKER [facility] Chloride 100 94 - 109 mmol/L 11/17/2021 7:56 AM GIMP TACKER [facility] Carbon Dioxide (CO2) 28 20 - 32 mmol/L 11/17/2021 7:56 AM GIMP TACKER [facility] Anion Gap 6 3 - 14 mmol/L 11/17/2021 7:56 AM GIMP TACKER [facility] Urea Nitrogen 14 7 - 30 mg/dL 11/17/2021 7:56 AM GIMP TACKER [facility] Creatinine 0.85 0.66 - 1.25 mg/dL 11/17/2021 7:56 AM GIMP TACKER [facility] Calcium 8.6 8.5 - 10.1 mg/dL 11/17/2021 7:56 AM GIMP TACKER [facility] Glucose 112(H) 70 - 99 mg/dL 11/17/2021 7:56 AM GIMP TACKER [facility] GFR Estimate >90 >60 mL/min/1.7 3m2 11/17/2021 7:56 AM GIMP TACKER [facility] Comment:Effective August 252020 eGFRcr in adults is calculated using the 2020 CKD-EPI creatinine equation which includes age and gender (Tabatha et al., NEJM, DOI: 10.1056/JJZKsh7865493) Blood BLOOD SPECIMEN / Unknown Venipuncture / Unknown 11/16/2021 11:32 AM GIMP TACKER 11/16/2021 11:32 AM GIMP TACKER Kenneth Giles MD LAB - BLOOD ORDERABL ES LABORATORY [facility] [address] Lab (no room number, 1st floor of clinic) [place] [address], [facility] [phone] * COLONOSCOPY (03/07/2016 11:08 AM CDT) [facility] COLONOSCOPY [facility] Patient Name: Narciso Resendiz ?Procedure Date: 03/07/2016 [...] and ?oxygen saturations were monitored continuously. The ?[id number] was introduced through the anus and ?advanced [...] neoplasm of digestive organs CPT copyright 2013 [employer]. All rights reserved. The codes documented in this report are preliminary and upon elevator mechanic apprentice review may be revised to meet current compliance requirements. Electronically signed by Pelon Taylor MD __ Pelon Taylor MD 03/07/2016 12:53 PM I was physically present for the entire viewing portion of the exam. Number of Addenda: 0 Note Initiated On: 03/07/2016 11:08 AM MRN: ?[id number] Procedure Date: ? 03/07/2016 11:08:07 AM Scope Withdrawal Time: 0 hours 6 minutes 22 seconds Total Procedure Duration: 0 hours 11 minutes 39 seconds Estimated Blood Loss: ? Scope In: 12:33:30 PM Scope Out: 12:45:09 PM RADIOLOGY RESULTS 03/07/2016 11:0 8 AM CDT Kenneth Giles MD PROCEDURES RADIOLOGY RESULTS from Last 3 Months or Most Recently Relevant to Health Maintenance Care Teams News Wire Photo Operator Relationship Specialty Start Date End Date [facility], [facility] [address] [place] [address] PCP - General 03/19/23 [place] [address] [place], [place] [id number] Assigned PCP 04/08/22
--- OUTSIDE RECORDS SUMMARY | 2024-03-16 21:07 | XMS_ITS | Encounter Summary ---
Author Organization [place] Address [address] [place] [address] Care Team Providers Care Hospital Administrator Name Role Phone Kenneth Giles MD Primary Care Provider Tammy Sinclair APRN TACK CLEANER Unavailable + Kenneth Giles MD Unavailable [phone] Mikayla Concepcion MD Unavailable Kenneth Giles MD Unavailable [phone] Mikayla Concepcion MD Unavailable Kenneth Giles MD Unavailable [phone] Mikayla Concepcion MD Unavailable [facility] [place] Primary [facility] Provider Encounter Details Date Type Department Care Team (Late st Contact Info) Description 03/11/[address] [facility] [id number] [place] [address], [address] [place] [address] Hansa Vasquez, [facility] Social History Tobacco Use Types Packs/Day Years [...] on filedocumented in this encounter Care Teams Hospital Administrator Relationship Specialty Start Date End Date Kenneth Giles MD PCP - General Family Practice 05/13/13 07/23/22 [facility] [place] [address] [place] [address] PCP - General 03/19/23 Tammy Sinclair APRN TACK CLEANER [address] [place] [address] Assigned PCP 01/12/19 10/25/19 [place] [address] [place] [address] Assigned PCP 10/26/19 05/21/21 [place] [address] [place] [address] Assigned PCP 05/22/21 10/01/21 [place] [address] [place] [address] Assigned PCP 10/02/21 11/19/21 [place] [address] [place] [address] Assigned PCP 11/20/21 11/26/21 [place] [address] [place] [address] Assigned PCP 11/27/21 04/07/22 [place] [address] [place] [address] Assigned PCP 04/08/22 documented as of this encounter
--- OUTSIDE RECORDS SUMMARY | 2024-03-16 21:08 | XMS_ITS | Continuity of Care Document ---
Author Organization [facility] Address [address] [place] [address] [address] [place] [address] Phone Care Team Providers Care Soaking Tank Worker Name Role Phone Unavailable Unavailable Unavailable Allergies, Adverse Reactions, Alerts Substance Reaction Status Criticality No Known allergies Medications Medication Instructions Dosage Effective Dates (start - stop) Status Comments LISINOPRIL-HYDROCHLORO THIAZIDE (unknown strength) Not Available - Active Procedures Procedure Date Office/Outpatient Visit,Est, Mod 2012 Postop Followup Visit Postop Followup Visit Low Back Disk Surgery/Decompress 2011 Pa Assist Low Back Disk Surgery/Decompre ss Advance Directives Directive Yes / No Effective Date File Name No Information Encounters Encounter Description Practice Location Reason(s) For Visit Diagnoses Date Provider Providers Copied on Encounter Z [facility], [address] [place] [address], [address], [place] tel:[phone] [facility] No Information 0 3 No Information Office/Outpa tient Visit,Est, Mod Z [facility], [address] [place], [place] [address] [place] [address], [address], [place] tel:[phone] [facility] No Information 3201 3 Medardo oMntenegro. [facility], [address] [facility] [address], [place], [id number], [place]. tel:[phone] Referring Provider: KACEY Gaytan [address] [place], [address]. tel:[phone] [facility], [address] [address], [place], [address], tel:[phone] [facility] No Information 3 Medardo Lan. [facility], [address] [place] [address] [address], [place], [id number], [place]. tel:[phone] Referring Provider: Rhianna Lowry [facility] [address] [place] [address], [address]. tel:[phone] [facility], [address] [place], [place] [address], [place], [address], [place] tel:[phone] [facility] No Information 3 Jane Novak. [facility], [address] [place] [address] [address], [place], [id number], [place]. tel:[phone] Referring Provider: Rhianna Lowry [facility] [address] [place] [address], [address]. tel:[phone] [facility], [address] [place], [place] [address], [place], [address], [place] tel:[phone] [facility] No Information 2 Jane Novak. [facility], [address] [place] [address] [address], [place], [address], [place]. tel:[phone] Referring Provider: [facility] Low[facility] [address] [place], [address]. tel:[phone] [facility], [address] [place], [place] [address], [place], [address], [place] tel:[phone] [facility] [place] No Information 2 Lucio Franco. [facility], [address] [place] [address], [address], [place], [place], [id number], [place]. tel:[phone] Family History Family Member Type Diagnosis Age At Onset No Information Payers Payer name Insurance type Covered republican ID Chandni andrews(s) [facility] [id number] [facility] [id number] Social History Type Description Quantity Date Captured Comments Sex Male Smoking Status No Information Chief Complaint And Reason For Visit No Information Reason For Referral Reason For Referral No Information History Of Present Illness Encounter Date Complaint History Of Prese nt Illness No Information Functional Status Date Functional Assessmen t No Information Instructions Date Instruction Additional Infor mation No Information Assessments Type Assessment Date No Information Patient Care Teams Name Effective Dates (start - stop) Status Members No Information
--- OUTSIDE RECORDS SUMMARY | 2024-03-16 21:08 | XMS_ITS | Continuity of Care Document ---
Author Organization Z [facility] Address [address] [place] [address] [address] [place] [address] Phone Care Team Providers Care Cementer Hand Name Role Phone Unavailable Unavailable Unavailable Allergies, [...] Date Provider Providers Copied on Encounter Z [facility], [address] [place] [address], [address], [place] tel:[phone] [facility] No Information 0 3 No Information Office/Outpa tient Visit,Est, Mod Z [facility], [address] [place], [place] [address] [place] [address], [address], [place] tel:[phone] [facility] No Information 3201 3 Medardo Montenegro. [facility], [address] [facility] [address], [place], [id number], [place]. tel:[phone] Referring Provider: KACEY Gaytan [address] [place], [address]. tel:[phone] [facility], [address] [address], [place], [address], tel:[phone] [facility] No Information 3 Medardo Lan. [facility], [address] [place] [address] [address], [place], [id number], [place]. tel:[phone] Referring Provider: Rhianna Lowry [facility] [address] [place] [address], [address]. tel:[phone] [facility], [address] [place], [place] [address], [place], [address], [place] tel:[phone] [facility] No Information 3 Jane Novak. [facility], [address] [place] [address] [address], [place], [id number], [place]. tel:[phone] Referring Provider: Rhianna Lowry [facility] [address] [place] [address], [address]. tel:[phone] [facility], [address] [place], [place] [address], [place], [address], [place] tel:[phone] [facility] No Information 2 Jane Novak. [facility], [address] [place] [address] [address], [place], [id number], [place]. tel:[phone] Referring Provider: Rhianna Lowry [facility] [address] [place], [address]. tel:[phone] [facility], [address] [place], [place] [address], [place], [address], [place] tel:[phone] [facility] [place] No Information 2 Lucio Franco. [facility], [address] [place] [address], [address], [place], [place], [id number], [place]. tel:[phone] Family History Family Member Type Diagnosis Age At Onset No Information Payers Payer name Insurance type Covered republican ID Chandni andrews(s) [facility] [id number] [facility] [id number] Social History Type Description Quantity Date Captured [...]
--- OUTSIDE RECORDS SUMMARY | 2024-03-16 21:08 | XMS_ITS | Continuity of Care Document ---
Author Organization [facility] Address [address] [address] [place] [address] Phone Care Team Providers Care Head Start Assistant Teacher Name Role Phone Oni Friend MD Unavailable Unavailable Allergies, Adverse Reactions, Alerts Substance Reaction Status Criticality No Known allergies Medications Medication Instructions Dosage Effective Dates (start - stop) Status Comments No Drug Therapy Prescribed Advance Directives Directive Yes / No Effective Date File Name No Information Encounters Encounter Description Practice Location Reason(s) For Visit Diagnoses Date Provider Providers Copied on Encounter [facility] [place], [address] [address], [place], [place], [id number], [place] tel:[phone] [facility] No Information Ronna Bunn. [address] [facility], [facility] [address], [place], [place], [id number], [place]. tel:[phone] Family History Family Member Type Diagnosis Age At Onset No Information Payers Payer name Insurance type Covered democrat ID Authorok andrews(s) [facility] [id number] Social History Type Description Quantity Date Captured Comments Sex Male Smoking Status No Information Chief Complaint And Reason For Visit No Information Reason For Referral Reason For Referral No Information History Of Present Illness Encounter Date Complaint History Of Prese nt Illness No Information Functional Status Date Functional Assessmen t No Information Medications Administered Medication Instructions Dosage Effective Dates (start - stop) Status Comments No Drug Therapy Prescribed Instructions Date Instruction Additional Infor mation No Information Assessments Type Assessment Date No Information Patient Care Teams Name Effective Dates (start - stop) Status Members No Information
--- OUTSIDE RECORDS SUMMARY | 2024-03-16 21:08 | XMS_ITS | Continuity of Care Document ---
Author Organization [facility] Address [address] [address] [place] [address] Phone Care Team Providers Care Dental Hygienist Mobile Coordinator Name Role Phone Oni Friend MD Unavailable Unavailable Allergies, Adverse Reactions, Alerts Substance Reaction Status Criticality No Known allergies Medications Medication Instructions Dosage Effective Dates (start - stop) Status Comments No Drug Therapy Prescribed Advance Directives Directive Yes / No Effective Date File Name No Information Encounters Encounter Description Practice Location Reason(s) For Visit Diagnoses Date Provider Providers Copied on Encounter [facility] [place], [address] [address], [place], [place], [id number], [place] tel:[phone] [facility] No Information Ronna Bunn. [address] [facility], [facility] [address], [place], [place], [address], [place]. tel:[phone] Family History Family Member Type Diagnosis Age At Onset No Information Payers Payer name Insurance type Covered green party ID Authorok andrews(s) [facility] [id number] Social History Type Description Quantity Date Captured [...]
[2024-03-16 21:14] LABS: Lactate* 1.3 mmol/L (0.5-1.9)
[2024-03-16 21:16] LABS: Basophils Absolute Auto 0.04 K/uL (0.00-0.30); Basophils Percent Auto 0.5 % (0.0-3.0); Eosinophils Absolute Auto 0.21 K/uL (0.00-0.50); Eosinophils Percent Auto 2.4 % (0.0-7.0); Hematocrit 42.8 % (37.0-53.0); Hemoglobin* 14.6 gm/dL (13.5-17.5); Immature Granulocytes Abs Auto 0.02 K/uL (0.00-0.30); Immature Granulocytes Pct Auto 0.2 %; Mean Corpuscular HGB Conc 34 gm/dL (32-36); Mean Corpuscular Hemoglobin 31 pg (26-34); Mean Corpuscular Volume 92 fL (80-100); Monocytes Percent Auto 8.6 % (0.0-11.0); Neutrophils Percent Auto 78.3 % (42.0-72.0); Platelet Count* 291 K/uL (140-440); RDW Coefficient of Variation % 12.6 % (11.5-15.5); Red Blood Count 4.68 m/uL (4.30-5.90); White Blood Count* 8.63 K/uL (4.50-11.00)
[2024-03-16 21:17] LABS: Slide Review Reflex No
[2024-03-16 21:32] LABS: INR 1.01 (0.91-1.10); Prothrombin Time 13.9 Seconds
[2024-03-16 21:37] LABS: Chloride* 91 mmol/L (96-114)
[2024-03-16] MEDS: 0.9 % SODIUM CHLORIDE 1000 ml 1,000 ML IV (21:37)
[2024-03-16 21:38] LABS: Albumin* 4.3 g/dL (3.3-5.0); Sodium* 131 mmol/L (135-149)
[2024-03-16 21:39] LABS: Potassium* 3.3 mmol/L (3.6-5.1)
[2024-03-16 21:41] LABS: Alkaline Phosphatase* 154 U/L (40-150); Anion Gap 11 mEq/L (7-15); Aspartate Amino Transferase* 269 U/L (12-35); Bilirubin Direct* 7.4 mg/dL (0.0-0.5); Bilirubin Total* 8.5 mg/dL (0.1-1.5); Carbon Dioxide* 29 mmol/L (20-32); Est. Creatinine Clearance* 97.04; Estimated Glomerular Filt Rate 89 ml/min; Total Protein* 8.2 g/dL (6.0-8.3)
[2024-03-16 21:42] LABS: Alanine Aminotransferase* 383 U/L (4-50); Blood Urea Nitrogen* 16 mg/dL (7-30); Calcium* 8.3 mg/dL (8.4-10.6); Glucose* 119 mg/dL (60-115); Lipase* 146 U/L (23-300); Magnesium* 2.4 mg/dL (1.5-2.6)
[2024-03-16 21:43] LABS: Acetaminophen* < 10.0 ug/mL (10.0-30.0)
[2024-03-16 21:44] LABS: C Reactive Protein* 3.5 mg/dL (0.5-1.0)
[2024-03-16 21:53] LABS: Troponin I* < 0.01 ng/mL (0.01-0.04)
[2024-03-16 22:02] LABS: Appearance Urine Clear (Clear); Bilirubin Urine 3+ (Negative); Blood Urine Negative (Negative); Color Urine Yellow (Yellow); Glucose Urine Negative (Negative); Ketones Urine Negative (Negative); Leukocyte Esterase Urine Negative (Negative); Nitrite Urine Negative (Negative); Protein Urine Negative (Negative); Specific Gravity Urine 1.015 (1.000-1.030)
[2024-03-16 22:09] LABS: RBC Urine 0-2 (0-2); Squamous Epithelial Cell Urine Moderate (None-Few); WBC Urine 0-2 (0-5)
== END 2024-03-17 00:39 | disposition other institution (70) ==
PROVIDERS: Emergency Provider Family Medicine; PCP Family Medicine
DX: K83.09 Other cholangitis (principal)
CPT/HCPCS: 36415; 76705; 80048; 80076; 80143; 81001; 83605; 83690; 83735; 84484; 85025; 85610; 86140; 93005; 94761; 96360; 99284; J7030

== ENCOUNTER 2024-03-17 00:20 | Outpatient (CLI) | payer BC, SELFPAY ==
--- OUTSIDE RECORDS SUMMARY | 2024-03-29 23:47 | XMS_ITS | Clinical Summary ---
Author Organization [facility] Address [address] [place] [phone] Phone Care Team Providers Care Respiratory Physician Name Role Phone Provider, Outside Primary Care Provider Unavaila ble Source Comments EXO5 is fully rolled out on [employer]. Last update 02/26/09.Meican Allergies No known active allergies Medications * Be aware that medications may not be up to date as of this document. Always verify current medications with patient. Medication Sig Dispensed Refills Start Date End Date Status lisinopril (PRINIVIL;ZESTRIL) 40 mg oral TABS Take 1 tablet (40 mg) by mouth daily. Active hydroCHLOROthiazide 25 mg oral TABS Take 1 tablet (25 mg) by mouth daily. Active amLODIPine (NORVASC) 10 mg oral tablet Take 1 tablet (10 mg) by mouth daily. Active esomeprazole magnesium (NEXIUM) [address] Take 40 mg by mouth twice daily. Active acetaminophen (TYLENOL) 325 mg oral tablet Take 2 tablets (650 mg) by mouth every 6 hours as needed for Mild Pain. 30 tablet 03/21/2024 Active senna (SENOKOT) 8.6 mg oral tablet Take 1 tablet (8.6 mg) by mouth twice daily as needed for Constipation. 20 tablet 03/21/2024 Active Active Problems Problem Noted Date Diagnosed Date Choledocholithiasis 03/17/2024 Abnormal LFTs 03/17/2024 Primary hypertension 06/05/2023 Morbid obesity (CMS) 01/08/2018 GERD (gastroesophageal reflux disease) 2 Encounters Date Type Department Care Team Description 03/24/2024 [facility] [address] [address] Georgiana Whittaker RN Procedure 03/20/2024 7:30 AM CDT - 03/20/2024 10:20 AM CDT Surgery OR P4 [address] [place] [address] Jayleen Bynum MD LAP CHOLECYSTECTOMY 03/20/2024 7:24 AM CDT Anesthesia Event OR [facility]4 [address] [place] [address] Lukasz Bates MD Deutz, Cole K, MD 03/19/2024 Documentation Only MEDICINE SERVICE [facility] [address] [place] [address] Clarissa Gutierrez PA-C 03/18/2024 2:52 PM CDT Anesthesia Event OR P4 [address] [place], [place] [phone] Lukasz Bates MD 03/18/2024 2:30 PM CDT - 03/18/2024 3:48 PM CDT Surgery OR P4 [address] [place] [address] Alexi Taylor MD GI ERCP DIAGNOSTIC 03/18/2024 Orders Only Unspecified Department [place] Unknown, Provider 03/18/2024 Orders Only Unspecified Department [place] Unknown, Provider 03/17/2024 1:15 AM CDT - 03/21/2024 11:47 AM CDT Hospital Encounter [facility] Surgery/Trauma/N euro 1 [facility] [address] [place] [address] Sang Pastrana MD Wright, MD Breanna Justice, MD April Alves Shrikar S, MD Choledocholithiasis Discharge Disposition: Discharged to home or self care (routine discharge) 03/17/2024 Orders Only Unspecified Department [place] Unknown, Provider 03/17/2024 Orders Only Unspecified Department [place] Unknown, Provider 03/17/2024 Travel 03/17/2024 Orders Only [facility] Film Room [facility] Radiology Department [facility] [address] [place] [address] [place] [address] Provider, Outside Referral of patient (Primary Dx) from Last 3 Months Immunizations Name Administration Dates Next Due COVID-19 Vaccine Monovalent (PFIZER) 12 Years an d Older 03/21/2024 Social History Tobacco Use Types Packs/Day Years Used Date Smoking Tobacco: Never Assessed Humiliation, Afraid, Rape, and Kick questionnair e Answer Date Recorded Within the last year, have y ou been afraid of your partner or ex-partner? No 03/17/2024 Within the last year, have y ou been humiliated or emotionally abused in other ways by your partner or ex-partner? No Within the last year, have y ou been kicked, hit, slapped, or otherwise physically hurt by your partner or ex-partner? No 03/17/2024 Within the last year, have y ou been raped or forced to have any kind of sexual activity by your partner or ex-partner? No 03/17/2024 Overall Financial Resource Strain (CARDIA) Answe r Date Recorded How hard is it for you to pa y for the very basics like food, housing, medical care, and heating? Not hard at all 03/17/2024 Hunger Vital Sign Answer Date Recorded Within the past 12 months, y ou worried that your food would run out before you got the money to buy more. Never true 03/17/20 24 Within the past 12 months, t he food you bought just didn't last and you didn't have money to get more. Never true 03/17/2024 PRAPARE - Transportation Answer Date Re corded In the past 12 months, has l ack of transportation kept you from medical appointments or from getting medications? No 02/23 In the past 12 months, has l ack of transportation kept you from meetings, work, or from getting things needed for daily living? No 03/17/2024 Housing Stability Answer Date Recorded What is your housing situation today? 3 - I have housing 03/17/2024 Sex and Gender Information Value Date Recorded Sex Assigned at Not on file Gender Identity Not on file Sexual Orientation Not on file Last Filed Vital Signs Vital Sign Reading Time Taken Comments Blood Pressure 139/81 03/21/2024 8:00 AM CDT Pulse 73 03/21/2024 8:00 AM CDT Temperature 36.7 ??C (98 ??F) 03/21/2024 7:42 AM CDT Respiratory Rate 18 03/21/2024 7:42 AM CDT Oxygen Saturation 96% 03/21/2024 8:00 AM CDT Inhaled Oxygen Concentration - - Weight 119.4 kg (263 lb 3.2 oz) 03/17/2024 4:00 AM CDT Height 190.5 cm (6' 3) 03/17/2024 4:00 AM CDT Body Mass Index 32.9 03/17/2024 4:00 AM CDT Plan of Treatment Upcoming Encounters Date Type Department Care Team (Late st Contact Info) Description 04/08/2024 2:00 PM CDT [facility] [address] [address] BartdJayleen MD [address] [id number] Scheduled Discharge Disposition: Discharged to home or self care (routine discharge) Scheduled Procedures Name Priority Associated Diagnoses Date/Ti me GI ERCP DIAGNOSTIC Semi-Elective (< 2 months) Encounter for removal of biliary stent Health Maintenance Due Date Last Done Comments CT Colonography 1970 Colonoscopy 1969 Colorectal Cancer Screening 1969 Dental Oral Exam 1969 Dental Prophylaxis 1969 Dental X-Ray: Bitewings 1969 FIT/Cologuard 1969 Sigmoidoscopy 1969 iFOB/FIT 1969 Imm: Pneumonia Peds or At-Risk less than 65 years (1 of 2 - PCV) 1975 Periodontal Maintenance 1983 HIV Screening 02/10/1984 HEALTH MAINTENANCE PROTOCOL 02/10/1988 Imm: HepB (1 of 3 - 19+ 3-dose series) 02/10/1988 INFLUENZA VACCINE 04/24/2024 COVID-19 Vaccine ( season) 2024 03/21/2024, 11/16/2021, 01/07/2021, Additional history exists PREVENTATIVE VISIT 06/05/2024 06/05/2023, 0 04/08/2019, 02/07/2016, Additional history exists Lipid Screening 11/16/2026 11/16/2021, 04/08/2019 TD/TDAP ADULTS 11/16/2031 11/16/2021, 07/04/2011 HIB Aged Out No longer eligi ble based on patient's age to complete this topic HPV Aged Out No longer eligi ble based on patient's age to complete this topic RSV Infant Immunoglobulin Aged Out No longer eligible based on patient's age to complete this topic Medical Devices Implanted Type 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 Device Identifier Shelf Expiration Date Model / Serial / Lot Endoclip 5mm [id number] Implanted:Qty: 1 on 03/20/2024 by Jayleen Bynum MD at [facility] Staple N/A: Bile Duct COVID[employer]EN LP 12/22/2026 [id number] / / [id number] Reload Load Endo Ernestine 30 Articulating Vascular 2.0 Tri-Staple Implanted:Qty: 1 on 03/20/2024 by Jayleen Bynum MD at [facility] Staple N/A: Bile Duct COVIDIEN LP 07/24/2028 [id number] / / [id number] Advanix Jose Martin Stent Cb 10fr X 7cm Implanted:Qty: 1 on 03/18/2024 by Alexi Taylor MD at [facility] [employer] [id number] 12/20/2025 [id number] / / [id number] Procedures Procedure Name Priority Date/Time Associated Diagnosis Comments PC TISSUE EXAM BY PATHOLOGIST STAT 03/20/2024 11:31 AM CDT Choledocholithia sis INTUBATION Routine 03/20/2024 7:52 AM CDT LAP CHOLECYSTECTOMY Semi-Urgent (< 2 wks) 03/20/2024 7:08 AM CDT Choledocholithia sis LIPASE Routine 03/20/2024 4:36 AM CDT PANEL BASIC METABOLIC (BMP) Routine 03/20/2024 4:36 AM CDT PC LAB CBC/PLT Routine 03/20/2024 4:36 AM CDT PANEL HEPATIC FUNCTION Routine 4:36 AM CDT LIPASE Timed 03/19/2024 6:35 AM CDT PC LAB CBC/PLT Routine 03/19/2024 6:35 AM CDT PANEL HEPATIC FUNCTION Routine 6:35 AM CDT PHOSPHORUS Routine 03/19/2024 6:35 AM CDT MAGNESIUM Routine 03/19/2024 6:35 AM CDT PANEL BASIC METABOLIC (BMP) Routine 03/19/2024 6:35 AM CDT POTASSIUM Routine 03/19/2024 1:51 AM CDT XR ERCP COMPLETE Routine 03/18/2024 4:22 PM CDT INTUBATION Routine 03/18/2024 3:17 PM CDT GI ERCP WITH STENT Urgent (< 48 hrs) 03/18/2024 2:42 PM CDT Choledocholithia sis GI ERCP WITH STONE REMOVAL Urgent (< 48 hrs) 03/18/2024 2:42 PM CDT Choledocholithia sis GI ERCP WITH SPHINCTEROTOMY Urgent (< 48 hrs) 03/18/2024 2:42 PM CDT Choledocholithia sis GI ERCP DIAGNOSTIC Urgent (< 48 hrs) 03/18/2024 2:42 PM CDT Choledocholithia sis ERCP Routine 03/18/2024 2:11 PM CDT MR MRCP WITHOUT SECRETIN Routine 03/18/2024 11:33 AM CDT TELEMETRY STRIPS 03/18/2024 8:10 AM CDT PC HEPATITIS C Routine 03/18/2024 7:17 AM CDT PANEL HEPATIC FUNCTION Routine 7:17 AM CDT PC LAB CBC/PLT Routine 03/18/2024 7:17 AM CDT PHOSPHORUS Routine 03/18/2024 7:17 AM CDT MAGNESIUM Routine 03/18/2024 7:17 AM CDT PANEL BASIC METABOLIC (BMP) Routine 03/18/2024 7:17 AM CDT TELEMETRY STRIPS 03/18/2024 1:35 AM CDT POTASSIUM Timed 03/17/2024 8:56 PM CDT TELEMETRY STRIPS 03/17/2024 5:36 PM CDT TELEMETRY STRIPS 03/17/2024 2:18 PM CDT POTASSIUM Timed 03/17/2024 1:58 PM CDT HEPATITIS B SURFACE ANTIGEN Routine 03/17/2024 5:40 AM CDT HEPATITIS B SURFACE ANTIBODY Routine 03/17/2024 5:40 AM CDT LIPASE Routine 03/17/2024 5:40 AM CDT PHOSPHORUS Routine 03/17/2024 5:40 AM CDT MAGNESIUM Routine 03/17/2024 5:40 AM CDT PANEL HEPATIC FUNCTION Timed 5:40 AM CDT PANEL BASIC METABOLIC (BMP) Timed 03/17/2024 5:40 AM CDT PC LAB CBC/PLT Timed 03/17/2024 5:40 AM CDT ULT ABDOMEN/PELVIS OUTSIDE FILMS Routine 03/16/2024 9:38 PM CDT Referral of patient PANEL LIPID Routine 11/16/2021 11:32 AM TRANSPORTATION SPECIALIST from Last 3 Months or Most Recently Relevant to Health Maintenance Results * SURGICAL PATHOLOGY (03/20/2024 11:31 AM CDT) SURG PATH FINAL ?Surgical Pathology Report Collection Date: ?03/20/2024 11:31 CDT ?Ordering Physician: ? JAYLEEN BYNUM Received Date: ?03/20/2024 13:27 CDT ?Accession Number: ? [id number] ? Surgical Pathology Final Report Specimen Type: Gallbladder, cholecystectomy Final Diagnosis: Gallbladder, cholecystectomy - ?? Chronic cholecystitis and cholelithiasis. * ??Report Electronically Signed By ??* ?? Bear Rocha MD ?? 03.21.2024 11:53 Clinical History: Clinical Diagnosis: Choledocholithiasis ESB/ESB 03.20.2024 13:59 Gross Description: Container designated: ?? Gallbladder. Fixative: Formalin. Specimen: Gallbladder. Dimensions: A 9.0 x 4.6 x 3.8 cm. Serosa: Luque-pink to red-pink, diffusely congested. Cystic duct lymph node: Not identified. Contents: Bile: Green-yellow, viscous. Stones: Numerous luque-black, multifaceted, measuring 0.4-0.6 cm in greatest dimension. Mucosa: Luque-pink to luque-green, velvety. Wall thickness: 0.1-0.6 cm. Other abnormalities: Received with a linear disruption along adventitial surface grossly consistent with surgical artifact. Administrative Representative sections are submitted in cassette A1 to include cystic duct margin en face and gallbladder wall. (ESB) ESB/ESB 03.20.2024 13:59 Microscopic Description: Microscopic examination performed and findings are reflected in the final diagnosis. I personally examined the relevant preparations and rendered and confirmed the diagnosis. ? Signed - Bear Rocha M.D. Attending Pathologist. ESB/ESB 03.20.2024 13:59 [facility] AP Specimen ABDOMEN / Unknown 03/20/2024 11:31 AM CDT Comment:OR: Routine gross an d microscopic examination Tissue: Gall bladder Site: Abdomen Additional clinical information: Jayleen Bynum MD LAB PATHOLOGY [facility] [address] [address] * Intubation/Airway (03/20/2024 7:52 AM CDT) Narrative Lourdes Ca APRN, CRNA - 03/20/2024 7:52 AM CDT Lourdes Ca APRN, CRNA ? 03/20/2024 ??7:53 AM AIRWAY/INTUBATION PROCEDURE direct laryngoscopy ??(Type: Surgical Anesthesia) Process/Method: sedated and paralyzed ?? Indications for procedure: surgery Assessment: TMD >3 finger breadths and vocal cords open and clear Device Device used: MAC Supporting device: ?? Blade size: 4 The patient was intubated with a 7.5 mm standard endotracheal tube inflated to seal and secured at 22 cm to Lips Grade: I Sellicks not used Narrative 1 intubation attempt(s) confirmed in 0-30 sec ?? Intubation Assessment: +ETCO2, EBBS and fog in ETT Ease of masking (I-easy to IV-difficult): I Ease of intubation (I-easy to IV-difficult): I Dentition Assessment: dentition unchanged and oral mucosa unchanged Performed by: COKE PRODUCTION HEATER: Lourdes Ca APRN, CRNA Events Anesthesia start: 03/20/2024 7:24 AM Intubation time: 03/20/2024 7:41 AM Kirt Atwood MD PROCEDURES * (ABNORMAL) PANEL BASIC METABOLIC (BMP) (03/20/2024 4:36 AM CDT) Only the most recent of4 resultswithin the time period is included. Sodium 133(L) 135 - 148 mmol/L [facility] Potassium 3.4(L) 3.5 - 5.3 mmol/L [facility] Chloride 99 92 - 108 mmol/L [facility] CO2 21(L) 22 - 30 mmol/L [facility] AnGap 13 8 - 16 mmol/L [facility] Glucose 93 70 - 100 mg/dL [facility] BUN 15 6 - 20 mg/dL [facility] Creatinine 0.81 0.70 - 1.25 mg/dL [facility] Calcium 8.3(L) 8.6 - 10.0 mg/dL [facility] eGFR (2020 CKD-EPI) 104 >=60 ml/min/1.7 3m2 [facility] Comment: The estimated glomerular filtration rate (eGFR) was calculated using the CKD-EPI 2020 creatinine equation, which does not include race as a factor. This equation is validated in individuals 18 years of age and older, and eGFR is normalized to a body surface area of 1.73m^2. Blood 03/20/2024 4:36 AM CDT 03/20/2024 5:27 AM CDT Carlos Chen MD LABORATORY Performing Organization Address City/[facility] Co de Phone Number [facility] [address] [address] * LIPASE (03/20/2024 4:36 AM CDT) Only the most recent of3 resultswithin the time period is included. Lipase 27 13 - 60 IU/L [facility] Blood 03/20/2024 4:36 AM CDT 03/20/2024 5:27 AM CDT Carlos Chen MD LABORATORY Performing Organization Address City/[facility]/ZIP Co de Phone Number [facility] [address] [address] * (ABNORMAL) PANEL HEPATIC FUNCTION (03/20/2024 4:36 AM CDT) Only the most recent of4 resultswithin the time period is included. Total Protein 6.5 6.4 - 8.3 g/dL [facility] Albumin 3.2(L) 3.8 - 5.1 g/dL [facility] Bili Total 3.9(H) <=1.2 mg/dL [facility] Bili Direct 2.3(H) <=0.3 mg/dL [facility] Alk Phos 129 40 - 129 IU/L [facility] Comment:No reference range e stablished for patients <18 years old. ALT (SGPT) 126(H) <=41 IU/L [facility] AST(SGOT) 50(H) 5 - 40 IU/L [facility] Blood 03/20/2024 4:36 AM CDT 03/20/2024 5:27 AM CDT Ra Delgado PA-C LABORATORY [facility] [address] [address] * (ABNORMAL) CBC WITH PLATELET (03/20/2024 4:36 AM CDT) Only the most recent of4 resultswithin the time period is included. Pathologist [facility] WBC 6.80 4.00 - 10.00 k/cmm [facility] RBC 4.30(L) 4.60 - 6.00 m/cmm [facility] Hgb 13.4 13.1 - 17.5 g/dL [facility] Hematocrit 39.9(L) 40.0 - 51.0 % [facility] MCV 92.8 80.0 - 100.0 fL [facility] MCH 31.2 25.0 - 32.0 pg [facility] MCHC 33.6 31.0 - 36.0 g/dL [facility] RDW 13.2 11.5 - 14.5 % [facility] Plt 271 150 - 400 k/cmm [facility] MPV 10.1 6.5 - 12.5 fL [facility] Blood 03/20/2024 4:36 AM CDT 03/20/2024 5:28 AM CDT Carlos Chen MD LABORATORY Performing Organization Address City/[facility]/ZIP Co de Phone Number [address] [address] * PHOSPHORUS (03/19/2024 6:35 AM CDT) Only the most recent of3 resultswithin the time period is included. Phosphorus 2.8 2.5 - 4.5 mg/dL [facility] Blood 03/19/2024 6:35 AM CDT 03/19/2024 7:35 AM CDT Ra Delgado PA-C LABORATORY Performing Organization Address [facility] Co de Phone Number [address] [address] * MAGNESIUM (03/19/2024 6:35 AM CDT) Only the most recent of3 resultswithin the time period is included. Magnesium 2.2 1.6 - 2.6 mg/dL [facility] Blood 03/19/2024 6:35 AM CDT 03/19/2024 7:35 AM CDT Ra Delgado PA-C LABORATORY Performing Organization Address City/[facility] Co de Phone Number [address] [address] * POTASSIUM (03/19/2024 1:51 AM CDT) Only the most recent of3 resultswithin the time period is included. Potassium 4.2 3.5 - 5.3 mmol/L [facility] Blood 03/19/2024 1:51 AM CDT 03/19/2024 2:02 AM CDT Carlos Chen MD LABORATORY Performing Organization Address City/[facility]/ZIP Co de Phone Number [facility] [address] [address] * XR ERCP COMPLETE (03/18/2024 4:22 PM CDT) Anatomical Region Laterality Modality Abdomen Radio Fluoroscop y 03/19/2024 10:1 1 AM CDT Impressions 03/19/2024 11:42 AM CDT Impression: Spot films and fluoroscopy time provided to the GI lab. I have personally reviewed the image(s) and initial interpretation, and I agree with the findings as documented by the resident/fellow. Reading Radiologist: Alen Lazcano Reading Resident: Fede Marroquin Narrative 03/19/2024 11:42 AM CDT Exam: ERCP Indication:Stone in ampulla. Comparison:MRCP dated 03/18/2024 Fluoroscopy time:2 minutes Dose:16.6 mGy Findings: Fluoroscopy time and spot-film imaging was provided to the GI lab. 6 spot-film images are presented for archiving and documentation of the fluoroscopy time.Images show an endoscope overlying the right mid abdomen. There is contrast opacification of the common bile duct. Round filling defect in the mid common bile duct is visualized. Final image shows placement of a common bile duct stent. No radiologist was present. See procedure report for details. Procedure Note Alen Lazcano, - 03/19/2024 Exam: ERCP Indication:Stone in ampulla. Comparison:MRCP dated 03/18/2024 Fluoroscopy time:2 minutes Dose:16.6 mGy Findings: Fluoroscopy time and spot-film imaging was provided to the GIlab. 6 spot-film images are presented for archiving and documentation ofthe fluoroscopy time.Images show an endoscope overlying the right midabdomen. There is contrast opacification of the common bile duct. Roundfilling defect in the mid common bile duct is visualized. Final imageshows placement of a common bile duct stent. No radiologist was present.See procedure report for details. IMPRESSION Impression: Spot films and fluoroscopy time provided to the GI lab. I have personally reviewed the image(s) and initial interpretation, and Iagree with the findings as documented by the resident/fellow. Reading Radiologist: Alen Lazcano Reading Resident: Fede Marroquin Alexi Taylor MD RAD FLUORO * Intubation/Airway (03/18/2024 3:17 PM CDT) Narrative Laya Up APRN, CRNA - 03/18/2024 3:17 PM CDT Laya Up APRN, CRNA ? 03/18/2024 ??3:17 PM AIRWAY/INTUBATION PROCEDURE direct laryngoscopy ??(Type: Surgical Anesthesia) Process/Method: sedated and paralyzed ?? Indications for procedure: surgery Assessment: vocal cords open and clear Preoxygenation: mask Device Device used: MAC Supporting device: ?? Blade size: 4 The patient was intubated with a 7.5 mm standard endotracheal tube inflated to seal and secured at 24 cm to Lips Grade: I Sellicks not used Narrative 1 intubation attempt(s) confirmed in 0-30 sec ?? Intubation Assessment: +ETCO2, EBBS and fog in ETT Ease of masking (I-easy to IV-difficult): I Ease of intubation (I-easy to IV-difficult): I Dentition Assessment: poor dentition, dentition unchanged and oral mucosa unchanged Performed by: COKE PRODUCTION HEATER: Laya Up APRN, CRNA Events Anesthesia start: 03/18/2024 2:52 PM Intubation time: 03/18/2024 2:59 PM Lukasz Bates MD PROCEDURES * ERCP (03/18/2024 2:11 PM CDT) 03/18/2024 2:11 PM CDT Narrative [facility] GI - 03/18/2024 4:50 PM CDT Gastroenterology Lab Patient Name: Narciso Resendiz ?Procedure Date: 03/18/2024 2:11 PM ?Date of : 1970 Admit Type: Inpatient ? Age: 54 Gender: Male Procedure: ? ERCP Indications: ? For therapy of bile duct stone(s), Jaundice. INPATIENT CASE. 54M w/ severe active AUD a/f jaundice, found to have elevated liver tests: TB 8.8, AP 169, ALT 264, AST 171. OSH US w/ cholelithiasis, CBD 7 mm. MRCP 03/18/24: CBD 1.3 cm and diffuse IHDD, 4 mm filling defect in dCBD near ampulla; PD normal w/ unremarkable pancreas. Providers: ? Alexi Taylor MD, Siobhan Gilman RN, Basilia Zafar, Flight Readiness Technician (Flight Readiness Technician) Referring MD: ?Carlos Chen (Referring MD) Medicines: ? General Anesthesia, Indomethacin 100 mg [place] Complications: ? No immediate complications. Estimated blood loss: None Procedure: ? After obtaining informed consent, the scope was passed under direct vision. Throughout the procedure, the patient's blood pressure, pulse, and oxygen saturations were monitored continuously. The Duodenoscope was introduced through the mouth, and used to cannulate and inject contrast into the bile duct. The ERCP was accomplished without difficulty. The procedure was determined to be ASGE Complexity Level 2. Findings: The linen keeper film was normal. The esophagus was successfully intubated under direct vision without detailed examination of the pharynx, larynx, and associated structures, and upper GI tract. The upper GI tract was grossly normal. The major papilla was bulging. The bile duct was deeply cannulated with the Autotome sphincterotome and a short straight 0.025 Jagwire was introduced into the biliary tree. Contrast was injected. I personally interpreted the bile duct images. There was brisk flow of contrast through the ducts. Image quality was excellent. Contrast extended to the hepatic ducts. Opacification of the main bile duct, hepatic duct bifurcation, left main hepatic duct, left intrahepatic branches and right main hepatic duct was successful. The main bile duct, right hepatic duct, and left hepatic duct were diffusely dilated. The largest diameter was 12 mm along the main bile duct. The intraduodenal portion of the common bile duct appeared sigmoidal. The middle third of the main bile duct contained a filling defect thought to be a stone. An 8 mm biliary sphincterotomy was made with a monofilament Autotome sphincterotome using ERBE electrocautery. There was no post-sphincterotomy bleeding. To discover objects, the biliary tree was swept with a 12 mm balloon starting at the upper third of the main bile duct, middle third of the main bile duct and lower third of the main duct. Sludge was swept from the duct. Many diminutive (1-2 mm in diameter) pigmented stones were removed. No stones remained. Repeat occlusion cholangiogram confirmed lack of residual filling defects within the main bile duct. One 10 Fr by 7 cm plastic stent with a single external flap and a single internal flap was placed 7 cm into the common bile duct. Bile flowed through the stent. The stent was in good position. Impression: ?- The major papilla appeared to be bulging. - Cholangiogram with diffuse dilatation of the entire main bile duct and right and left hepatic ducts, as well as a filling defect consistent with a stone seen and a sigmoidal intraduodenal portion of the common bile duct identified. - A biliary sphincterotomy was performed. - The biliary tree was swept. Choledocholithiasis was found. Complete removal was accomplished by biliary sphincterotomy and balloon extraction. - One plastic 10 Fr x 7 cm stent was placed into the common bile duct. Recommendation: ?- Return patient to hospital lam for ongoing care. - Clear liquid diet today, then advance as tolerated to resume previous diet. - Avoid aspirin and nonsteroidal anti-inflammatory medicines for 7 days. - OK to resume VTE prophylaxis, if indicated per primary team, tomorrow. - Continue to monitor liver chemistries. Suspect there is a degree of alcoholic hepatitis contributing. - Surgery consultation for consideration of cholecystectomy this admission. - Repeat ERCP in 6 weeks for stent removal. - Primary Care follow-up one week after discharge with repeat liver chemistries. Attending Participation: I personally performed the entire procedure. Alexi Taylor MD, [id number] 03/18/2024 4:20:13 PM Number of Addenda: 0 Note Initiated On: 03/18/2024 2:11 PM Clarissa Gutierrez PA-C GI LAB [facility] * MR MRCP WITHOUT CONTRAST (03/18/2024 11:33 AM CDT) Anatomical Region Laterality Modality Magnetic Resonan ce 03/18/2024 11:3 6 AM CDT Impressions 03/18/2024 1:14 PM CDT Impression: 1. Cholelithiasis with findings concerning for cholecystitis. 2. Marked intrahepatic and extrahepatic biliary dilatation. Findings highly concerning for a small obstructing stone at the ampulla. 3. Mild splenomegaly. 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 Had L shoulder surgery with pins in 2022. ??. Comparison: None. Technique: Sequences are as follows: Coronal bTFE gradient echo, coronal T2 MERRY, axial SS T2 SPAIR with fat sat, axial in-phase and out of phase, axial DWI, MRCP high resolution coronal (with MIP and 3D reconstructions), single shot thick slab MRCP and axial THRIVE. 3-D reconstructions were created by the staff nuclear medicine technologist on the MRI scanner and reviewed by the radiologist. Images were archived in PACS. Findings: Liver: Normal signal intensity. No focal mass. Gallbladder and biliary system: Multiple gallstones in the gallbladder. Mild gallbladder wall thickening noted, with gallbladder wall edema and restricted diffusion. There is diffuse biliary dilatation, with dilatation of the common hepatic duct measuring about 9 mm, left and right hepatic ducts measuring up to 1.3 cm, and cystic duct measuring up to 1.1 cm. The distal common duct is dilated up to about 1.3 cm. There is a small filling defect seen at the ampulla measuring about 4 mm in size, concerning for choledocholithiasis. Pancreas: No focal mass. Pancreatic duct is within normal limits. Spleen: Mildly enlarged spleen measuring up to 16.5 cm in length.. ?? Adrenal glands: Within normal limits. ?? Kidneys: Simple cyst upper pole of the left kidney. Major blood vessels: Normal caliber aorta. Free fluid: None. Lymph nodes: Small iban hepatis lymph nodes, likely reactive. Bowel: Bowel is nondistended. No wall thickening. Lower chest: No pericardial or pleural effusion. The heart is nonenlarged. Bones and soft tissues: No acute or suspicious osseous lesions. 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 Had L shoulder surgery with pins in 2022. . Comparison: None. Technique: Sequences are as follows: Coronal bTFE gradient echo, coronal T2 MERRY, axial SS T2 SPAIR with fatsat, axial in-phase and out of phase, axial DWI, MRCP high resolutioncoronal (with MIP and 3D reconstructions), single shot thick slab MRCP andaxial THRIVE. 3-D reconstructions were created by the staff nuclear medicine technologist onthe MRI scanner and reviewed by the radiologist. Images were archived inPACS. Findings: Liver: Normal signal intensity. No focal mass. Gallbladder and biliary system: Multiple gallstones in the gallbladder.Mild gallbladder wall thickening noted, with gallbladder wall edema andrestricted diffusion. There is diffuse biliary dilatation, with dilatation of the common hepaticduct measuring about 9 mm, left and right hepatic ducts measuring up to1.3 cm, and cystic duct measuring up to 1.1 cm. The distal common duct isdilated up to about 1.3 cm. There is a small filling defect seen at theampulla measuring about 4 mm in size, concerning forcholedocholithiasis. Pancreas: No focal mass. Pancreatic duct is within normal limits. Spleen: Mildly enlarged spleen measuring up to 16.5 cm in length.. Adrenal glands: Within normal limits. Kidneys: Simple cyst upper pole of the left kidney. Major blood vessels: Normal caliber aorta. Free fluid: None. Lymph nodes: Small iban hepatis lymph nodes, likely reactive. Bowel: Bowel is nondistended. No wall thickening. Lower chest: No pericardial or pleural effusion. The heart is nonenlarged. Bones and soft tissues: No acute or suspicious osseous lesions. IMPRESSION Impression: 1. Cholelithiasis with findings concerning for cholecystitis. 2. Marked intrahepatic and extrahepatic biliary dilatation. Findingshighly concerning for a small obstructing stone at the ampulla. 3. Mild splenomegaly. Reading Radiologist: Jose Tee Ra Delgado PA-C RAD MR BODY * TELEMETRY STRIPS (03/18/2024 8:10 AM CDT) Only the most recent of4 resultswithin the time period is included. Narrative 03/18/2024 8:10 AM CDT Ordered by an unspecified provider. Provider Unknown RAD ECHO * HEPATITIS C ANTIBODY WITH CONDITIONAL PCR (03/18/2024 7:17 AM CDT) Hep C Ruth Nonreactive Nonreactive [facility] Comment:Performance characte ristics have not been established with this test on patients less than 10 years of age. Blood 03/18/2024 7:17 AM CDT 03/18/2024 7:57 AM CDT Ra Delgado PA-C LABORATORY [facility] [address] [address] * HEPATITIS B SURFACE ANTIGEN (03/17/2024 5:40 AM CDT) HBV Surface Ag Nonreactive Nonreactive [facility] Comment: Testing performed at: [address] [address] Blood 03/17/2024 5:40 AM CDT 03/17/2024 2:28 PM CDT Ra Delgado PA-C LABORATORY Performing Organization Address City/[facility] Co de Phone Number [address] [address] * HEPATITIS B SURFACE ANTIBODY (03/17/2024 5:40 AM CDT) HBsAb Interpretation Nonreactive [facility] HBsAb Quant <3.31 mIU/ml [facility] Comment:The Hepatitis B Surf marek Antibody quantitation is less than 8.00 mIU/mL. There is no evidence of an antibody response to a hepatitis B vaccination or recovery from a hepatitis B infection. This patient is presumed non-immune to hepatitis B. Blood 03/17/2024 5:40 AM CDT 03/17/2024 2:28 PM CDT Ra Delgado PA-C LABORATORY Performing Organization Address City/[facility] Co de Phone Number [address] [address] * ULT ABDOMEN/PELVIS OUTSIDE FILMS (03/16/2024 9:38 PM CDT) Narrative Kathy JohnsonKtur-Cwmlgw-Kgxubmdyh - 03/17/2024 6:12 AM CDT Outside Film Only Outside Provider RAD OUTSIDE FILMS from Last 3 Months or Most Recently Relevant to Health Maintenance Advance Directives For more information, please contact: [phone] * Full Code (Latest Code Status on File) Date Activated Date Inactivated Comments 03/17/2024 3:40 AM 03/21/2024 2:48 PM Question Answer Comments Does the Patient have prefer ences regarding life sustaining measures (these options only apply when the patient has a pulse): No Discussed Code Status With Whom? Patient Care Teams Respiratory Physician Relationship Specialty Start Date End Date Provider, [place] [address] PCP - General 03/21/24
--- OUTSIDE RECORDS SUMMARY | 2024-03-29 23:48 | XMS_ITS | Encounter Summary ---
Author Organization [facility] Address [address] [place] [address] Phone Care Team Providers Care [employer] Clerk Name Role Phone Unavailable Primary Care Provider Unavailabl e Reason for Visit * Auth/Cert (Routine) Specialty Diagnoses / Procedures Referred By Susan t Referred To Contact SURGERY Diagnoses Choledocholithiasis Sang Pastrana MD [address] [place] [address] [id number] In[address] [facility] [address] [place] [address] Referral ID Status Reason Start Date Expiration Date Visits Re quested Visits Authorized [id number] 1 1 Encounter Details Date Type Department Care Team (Late st Contact Info) Description 03/20/2024 7:24 AM CDT Anesthesia Event OR [address] [place], [place] [id number] Lukasz Bates MD [address] [place] [address] [address] [place], [place] [id number] Kirt Atwood MD [address] [place] [address] [id number] Anesthesia Record Procedure Summary Procedure Name Responsible Anesthesiologist Anesthesia Start Time Anesthesia Stop Time LAP CHOLECYSTECTOMY (Abdomen) Lukasz Bates MD 03/20/24 0724 03/20/24 1214 Events Date Time Event Comment 03/20/2024 0652 Pre-op End 0724 An Start 0724 An Start Data 0724 IOPAE The intraoperat james pre-anesthetic evaluation was completed with no changes noted from the pre-operative anesthesia evaluation. 0737 An Induction 0741 An Intubation 0809 Quick Note Time out 0810 Incision 1148 An Local 1204 Extubation 1208 an stop data 1214 An Stop Meds Name Total fentaNYL (SUBLIMAZE) 100 mcg/ 2 mL injec tion 100 mcg lidocaine 2% injection 100 mg propofol (DIPRIVAN) injection 200 mg rocuronium (ZEMURON) injection 170 mg phenylephrine 100 mcg/mL syringe 700 mcg dexamethasone (DECADRON) 4 mg/mL injecti on 4 mg ondansetron (ZOFRAN) injection 4 mg sugammadex (BRIDION) 200 mg/ 2mL injecti on 300 mg ceFAZolin (ANCEF) 2 g IVPB 2 g HYDROmorphone (DILAUDID) 1 mg/mL injecti on 1 mg glycopyrrolate (ROBINUL) injection 0.2 m g phenylephrine (JV-SYNEPHRINE) 0.2 mg/mL infusion 3.96 mg lactated ringers infusion 1,501 mL * Agents Name Sevoflurane * Blood No blood administrations on file. Lines, Drains, and Airways Type Details Placement Removal Wound 03/20/24; 0809; N; Incision; laparoscopic punctures (specify) (X4 incisions); Abdomen; Anterior 03/20/24 0809 by Doretha Magana RN Peripheral IV 03/17/24; 1155; Yes; 18 gauge, 1 3/4 in length; Anterior, Left; Forearm; 1; Placed in Unit; 03/21/24; 1016; None 03/17/24 1155 by Octavia Magaña RN 03/21/24 1016 by Mona Escobar [facility] Endotracheal Tube: 03/20/24; 0753 (melissa lu via procedure documentation); 7.5; 03/20/24; 1204 03/20/24 0753 by Lourdes Ca APRN, SPECTACLE TRUER 03/20/24 1204 by Lourdes Ca APRN, SPECTACLE TRUER documented in this encounter Social History Tobacco Use Types Packs/Day Years [...] on file Sexual Orientation Not on file documented as of this encounter OR Notes * Anesthesia Postprocedure Evaluation - Lukasz Bates MD - 03/20/2024 1:57 PM CDT Anesthesia Post Eval Patient: Narciso Resendiz Procedure(s) Performed: LAP CHOLECYSTECTOMY (Abdomen) I've examined the patient and determined that he/she is medically stable [facility] Anesthesia type: General () Patient location: PACU Patient status: Post-procedure vital signs reviewed and stable Level of Consciousness: Awake Post-op pain: Adequate Respiratory: Stable Cardiovascular: Stable PONV status: none Fluid status: Acceptable Anesthetic Complications: No immediate anesthesia complications Last Vitals: Vitals Value Taken Time BP 131/72 03/20/24 1348 Temp 36.3 ??C (97.4 ??F) 03/20/24 1305 Pulse 68 03/20/24 1348 Resp 12 03/20/24 1315 SpO2 95 % 03/20/24 1348 Vitals shown include unfiled device data. * Anesthesia Procedure Notes - Lourdes Ca APRN, CRNA - 03/20/2024 7:52 AM CDTAssociated Order(s): Intubation/Airway AIRWAY/INTUBATION PROCEDURE direct laryngoscopy (Type: Surgical Anesthesia) Process/Method: sedated and paralyzed Indications for procedure: surgery Assessment: TMD >3 finger breadths and vocal cords open and clear Device Device used: MAC Supporting device: Blade size: 4 The patient was intubated with a 7.5 mm standard endotracheal tube inflated to seal and secured at 22 cm to Lips Grade: I Sellicks not used Narrative 1 intubation attempt(s) confirmed in 0-30 sec Intubation Assessment: +ETCO2, EBBS and fog in ETT Ease of masking (I-easy to IV-difficult): I Ease of intubation (I-easy to IV-difficult): I Dentition Assessment: dentition unchanged and oral mucosa unchanged Performed by: SPECTACLE TRUER: Lourdes Ca APRN, CRNA Events Anesthesia start: 03/20/2024 7:24 AM Intubation time: 03/20/2024 7:41 AM * Anesthesia Preprocedure Evaluation - Kirt Atwood MD - 03/20/2024 7:02 AM CDT Anesthesia Pre-Evaluation Summary Statement: This is a 54 y.o. year old patient scheduled for LAP CHOLECYSTECTOMY (Abdomen). Anesthesia Evaluation Internal or external H&P reviewed, patient examined and changes and/or additions made as needed Anesthesia Considerations , Negative for Anesthesia complications Additional ROS/Med Hx Findings: CC: Choledocholithiasis Pulmonary - negative ROS and normal exam Neurological - negative ROS Psychiatric (+) alcohol abuse Cardiovascular - normal exam (+) hypertension, hyperlipidemia Endo - negative ROS Musculoskeletal - negative ROS HEENT - negative ROS GI (+) GERD, obesity, liver disease (Possible EtOH hepatitis) ROS comment: Elevated LFT's Biliary obstruction Hematologic/Onc - negative ROS /Renal/Insurance Clerk ROS comment: Hyponatremia Hypokalemia Airway Mallampati: II TM distance: >3 FB Neck ROM: full Mouth Opening: good Dental - normal exam OB Other Physical Exam Anesthesia Plan ASA 3 general intravenous induction Maintenance: Balanced Post-op Care: routine analgesia Anesthetic plan and risks discussed with patient. Plan discussed with SPECTACLE TRUER. Vitals: 03/19/24 2327 Pulse: 50 Resp: 18 Temp: 36.3 ??C (97.4 ??F) SpO2: 98% documented in this encounter Miscellaneous Notes * Anesthesia Handoff Note - Lourdes Ca APRN, CRNA - 03/20/2024 12:14 PM CDT Anesthesia Post Handoff Patient: Narciso Resendiz Procedure(s) Performed: LAP CHOLECYSTECTOMY (Abdomen) Patient was stable and nail beds/oral mucosa pink at time of handoff. Patient location: PACU Transportation: Patient was not placed on High Flow Oxygen. Anesthesia Type: general Patient did not meet fast track criteria. Report to RN () The nurse's questions were answered. Last Vitals: Vitals: 03/19/24 2327 Pulse: 50 Resp: 18 Temp: 36.3 ??C (97.4 ??F) SpO2: 98% * Anesthesia Extubation Note - Lourdes Ca APRN, CRNA - 03/20/2024 12:13 PM CDT Anesthesia Extubation Note At the time of extubation the patient was breathing spontaneously, orally suctioned, vital signs stable and within normal limits, follows commands, awake, 4-4 on TOF with sustained tetany, eyes open and briskly follows verbal commands. Extubation details: Spontaneous respirations, Oral ETT removed, Oral airway and Pharyngeal reflexespresent documented in this encounter Plan of Treatment Upcoming Encounters Date Type Department Care Team (Late st Contact Info) Description 04/08/2024 2:00 PM CDT [facility] [address] [address] Bradley Bynum MD [address] [place] [id number] Scheduled Discharge Disposition: Discharged to home or self care (routine discharge) Scheduled Procedures Name Priority Associated Diagnoses Date/Ti al GI ERCP DIAGNOSTIC Semi-Elective (< 2 months) Encounter for removal of biliary stent documented as of this encounter Procedures Procedure Name Priority Date/Time Associated Diagnosis Comments INTUBATION Routine 03/20/2024 7:52 AM CDT documented in this encounter Results * Intubation/Airway (03/20/2024 7:52 AM CDT) Narrative [...] unchanged and oral mucosa unchanged Performed by: CATRACHO: Lourdes aC APRN, CRNA Events Anesthesia start: 03/20/2024 7:24 AM Intubation time: 03/20/2024 7:41 AM Kirt Atwood MD PROCEDURES documented in this encounter Visit Diagnoses Not on filedocumented in this encounter Administered Medications Inactive Administered Medications - up to 3 most recent administrations Medication Order MAR Action Action Date Dose Rate Site ceFAZolin (ANCEF) IVPB Intravenous, INTRA-OP PRN ONCE MAY REPEAT, Starting on Venus 03/20/24 at 0754, Until Venus 03/20/24 at 1214 Given 03/20/2024 7:54 AM CDT 2 g dexamethasone (DECADRON) 20 mg/ 5mL injection IV Push, INTRA-OP PRN ONCE MAY REPEAT, Starting on Venus 03/20/24 at 0801, Until Venus 03/20/24 at 1214 Given 03/20/2024 8:01 AM CDT 4 mg fentaNYL (SUBLIMAZE) 100 mcg/2mL injection Intravenous, INTRA-OP PRN ONCE MAY REPEAT, Starting on Venus 03/20/24 at 0737, Until Venus 03/20/24 at 1214 Given 03/20/2024 8:09 AM CDT 50 mcg Given 03/20/2024 7:37 AM CDT 50 mcg glycopyrrolate (ROBINUL) injection IV Push, INTRA-OP PRN ONCE MAY REPEAT, Starting on Venus 03/20/24 at 0832, Until Venus 03/20/24 at 1214 Given 03/20/2024 8:32 AM CDT 0.2 mg HYDROmorphone PF (DILAUDID) 1 mg/mL injection IV Push, INTRA-OP PRN ONCE MAY REPEAT, Starting on Venus 03/20/24 at 1055, Until Venus 03/20/24 at 1214 Given 03/20/2024 12:02 PM CDT 0.5 mg Given 03/20/2024 10:55 AM CDT 0.5 mg lactated ringers infusion Intravenous, PERIOP CONTINUOUS, Starting on Venus 03/20/24 at 0735, Until Venus 03/20/24 at 1214 New Bag 03/20/2024 12:14 PM CDT New Bag 03/20/2024 8:19 AM CDT New Bag 03/20/2024 7:24 AM CDT lidocaine 2% injection Intravenous, INTRA-OP PRN ONCE MAY REPEAT, Starting on Venus 03/20/24 at 0737, Until Venus 03/20/24 at 1214 Given 03/20/2024 7:37 AM CDT 100 mg ondansetron (ZOFRAN) 4 mg/2 mL injection IV Push, INTRA-OP PRN ONCE MAY REPEAT, Starting on Venus 03/20/24 at 1127, Until Venus 03/20/24 at 1214 Given 03/20/2024 11:27 AM CDT 4 mg phenylephrine (JV-SYNEPHRINE) 0.2 mg/mL infusion Intravenous, PERIOP CONTINUOUS, Starting on Venus 03/20/24 at 0915, Until Venus 03/20/24 at 1214 Infusing 03/20/2024 11:43 AM CDT 0.1 mcg/kg/min 3.582 mL/hr Infusing 03/20/2024 11:39 AM CDT 0.2 mcg/kg/min 7.164 mL /hr Infusing 03/20/2024 10:43 AM CDT 0.25 mcg/kg/min 8.955 m L/hr phenylephrine (JV-SYNEPHRINE) 1 mg/10mL injection IV Push, INTRA-OP PRN ONCE MAY REPEAT, Starting on Venus 03/20/24 at 0828, Until Venus 03/20/24 at 1214 Given 03/20/2024 11:33 AM CDT 100 mcg Given 03/20/2024 8:54 AM CDT 100 mcg Given 03/20/2024 8:40 AM CDT 200 mcg propofol (DIPRIVAN) 10 mg/mL injection emulsion Intravenous, INTRA-OP PRN ONCE MAY REPEAT, Starting on Venus 03/20/24 at 0737, Until Venus 03/20/24 at 1214 Given 03/20/2024 7:37 AM CDT 200 mg rocuronium bromide (ZEMURON) 10 mg/mL injection IV Push, INTRA-OP PRN ONCE MAY REPEAT, Starting on Venus 03/20/24 at 0738, Until Venus 03/20/24 at 1214 Given 03/20/2024 11:30 AM CDT 10 mg Given 03/20/2024 10:30 AM CDT 20 mg Given 03/20/2024 9:41 AM CDT 20 mg sugammadex (BRIDION) 200 mg/2 mL injection IV Push, INTRA-OP PRN ONCE MAY REPEAT, Starting on Venus 03/20/24 at 1203, Until Venus 03/20/24 at 1214 Given 03/20/2024 12:03 PM CDT 300 mg documented in this encounter
--- OUTSIDE RECORDS SUMMARY | 2024-03-29 23:48 | XMS_ITS | Encounter Summary ---
Author Organization [facility] Address [address] [place] [phone] Phone Care Team Providers Care Human Services Program Specialist Name Role Phone Provider, Outside Primary Care Provider Unavaila ble Reason for Visit * Reason Comments Abdominal Pain Gallbladder Problems * Auth/Cert (Routine) Specialty Diagnoses / Procedures Referred By Contac t Referred To Contact SURGERY Diagnoses Choledocholithiasis Sang Pastrana MD [address] [place] [address] [id number] [place] [address] Referral ID Status Reason Start Date Expiration Date Visits Re quested Visits Authorized [id number] 1 1 Encounter Details Date Type Department Care Team (Latest Contact Info) Description 03/17/2024 1:15 AM CDT - 03/21/2024 11:47 AM CDT Hospital Encounter [facility] Surgery/Trauma/Ne uro [address] [place], [place] [id number] Sang Pastrana MD [address] [place] [address] [id number] Dylan Vazquez MD [address] [id number] Mich Carlos MD [address] [place] [phone] Carlos Chen MD [address] [place], [place] [id number] Choledocholithiasis Discharge Disposition: Discharged to home or self care (routine discharge) Social History Tobacco Use Types Packs/Day Years [...] on file documented as of this encounter Last Filed Vital Signs Vital Sign Reading [...] Mass Index 32.9 03/17/2024 4:00 AM CDT documented in this encounter Discharge Summaries * Ra Delgado PA-C - 03/21/2024 8:45 AM CDT DISCHARGE SUMMARY - CRISTINA Resendiz : 1970 Sex: male Date of Admission: 03/17/2024 Date of Discharge: 03/21/2024 Disposition: Home Primary care physician: Outside Provider ADMISSION DIAGNOSIS: Choledocholithiasis HTN DISCHARGE DIAGNOSES, ASSESSMENTS, & PLANS: Acute liver injury likely 2/2 cholestasis due to choledocholithiasis, improved: Acute cholecystitis s/p lap mick 03/20: Presented to outside ED ([place], [place]) -> family thought jaundiced, pt c/o abdominal pain & diarrhea. LFTs 03/17: alk phos 169, ALT 264, AST 171, dBili7.3, tBili 8.8 -> repeat 03/18 dBili 8.5, tBili 10.6 -> now down-trending after ERCP & stone removal. HBV/HCV screens negative. Lipase remained WNL. MRCP 03/18 also with cholecystitis, surgery performed cholecystectomy 03/20. Received IV ciprofloxacin + metronidazole while hospitalized per surgery, no longer needed & can discharge today without abx per surgery. -ERCP for stent removal in 6 weeks (GI routed for scheduling) -Outpatient surgery follow-up 04/01 (Dr. Sandhu) HTN: SHEARER HELPER amlodipine 10 mg daily + hydrochlorothiazide 25 mg daily + lisinopril 40 mg daily. Thiazide held while hospitalized 2/2 hypokalemia. Now tolerating PO. Has been stable on this regimen, will resume on discharge. Chronic Conditions -Obesity: BMI 32.9, noted. May impact complexity of imaging and procedures while hospitalized. Resolved / Addressed Conditions -Hyponatremia, hypokalemia, & hypophosphatemia: K chris 2.9, Na 131, P 2.0. Suspected hypovolemic hyponatremia. Supplemented PRN. Now tolerating PO intake without difficulty. MAJOR MEDICATION CHANGES: None CONSULTS: 1) GI 2) General Surgery FOLLOW-UP APPOINTMENTS AND REFERRALS: Future Appointments Date Time Provider Department Center 04/08/2024 2:00 PM Jayleen Sandhu MD [facility] SUR[facility] Special ALLERGIES: No Known Drug Allergies PENDING TEST RESULTS: 1) Surgical pathology from 03/20 in process -> can follow-up PRN at outpatient surgery appointment PHYSICAL EXAMINATION: BP 130/81 (Cuff Location: Left Arm) Pulse 81 Temp 36.7 ??C (98 ??F) (Tympanic) Resp 18 Ht 1.905 m (6' 3) Wt 119.4 kg (263 lb 3.2 oz) SpO2 97% BMI 32.90 kg/m?? Constitutional: Alert, NAD Head: Normocephalic, no masses, no lesions, and no tenderness. Eyes: Sclera non-icteric. Pulmonary: Lungs clear bilaterally. No wheezes, rhonchi, crackles appreciated. No dyspnea on RA or cough. Cardiovascular Heart: RRR, S1, S2, no murmurs Peripheral vascular: No LE edema Gastrointestinal Abdominal: Soft, non-distended with active bowel sounds. Moderate diffuse tenderness. Genitourinary: No Joshi. Musculoskeletal: Chest: No gross abnormalities, no visible redness or bruises. Extremities: Moves all extremities without difficulty, sits up in bed without assist. Did not formally assess ROM or strength. Skin: Normal skin color, texture, and turgor. Laparoscopic sites to abdomen closed with glue. No active exudate or erythema seen. Neurologic: Alert, oriented. No focal deficits noted. [place] Department Supervisor Needed: no MEDICATIONS AT DISCHARGE Medication List START taking these medications acetaminophen 325 mg tablet Commonly known as: TYLENOL Take 2 tablets (650 mg) by mouth every 6 hours as needed for Mild Pain. senna 8.6 mg tablet Commonly known as: SENOKOT Take 1 tablet (8.6 mg) by mouth twice daily as needed for Constipation. CONTINUE taking these medications amLODIPine 10 mg tablet Commonly known as: NORVASC esomeprazole magnesium [address] Commonly known as: NEXIUM hydroCHLOROthiazide 25 mg Tabs lisinopril 40 mg Tabs Commonly known as: PRINIVIL;ZESTRIL Where to Get Your Medications These medications were sent to [facility] Discharge Pharmacy - [address] [address] Hours: 16/04 acetaminophen 325 mg tablet senna 8.6 mg tablet DISCHARGE ORDERS Discharge Procedure Orders Why you were at the hospital: Order Comments: You were in the hospital for gallstones requiring stone removal and gallbladder removal. You will need to return for stent removal and a surgery follow-up appointment. When should I be concerned? Order Comments: Go to the Emergency Department or call 911 IF: -- you have redness, swelling, or severe pain in one or both of your legs -- you have chest pain or shortness of breath Clinic hours (8AM - 4:30PM, M-F): Call the Surgery Clinic at [phone] After hours or on Holidays: Call the [facility] cutting machine operator . Ask the cutting machine operator to page the general surgery resident construction code administrator. IF: -- you feel you are getting worse or having an increase in problems -- you have new, increased, or different drainage from your incision -- your incision has any signs of infection (increasing redness, swelling, tenderness/pain, warmth,change in appearance) -- your temperature is higher than 101.5 F. (taken by mouth) and lasts more than 12 hours -- you have a lot of vomiting or diarrhea (loose watery stools) - especially if your are unable to keep your medicines down -- you have no stool in 3 days -- you do not urinate for 8-12 hours or the urine is very dark -- you have any other concerns It is normal to have: -- a small amount of bleeding from your incision the first few days -- pain, bruising, and swelling under the incision -- numbness of the skin around your incision. -- a small fever -- mild nausea Please keep the appointments that have already been made. Order Comments: -- Please keep the appointments that have already been made. You will also need stent removal in ~6 weeks, this should be arranged and someone will call you but please call if you do not hear from someone. Call [phone] if you need to schedule or reschedule any appointments at [facility]. Moving around after your hospital visit Order Comments: -- Do not lift more than 20 pounds for 2 weeks. (A full gallon of water weighs about 8 pounds). You do not have other restrictions. Other Activities: Order Comments: -- You may shower starting tomorrow. No soaking in water, tubs/baths for 2 weeks after surgery. -- Do not lift more than 20 pounds for 2 weeks. (A full gallon of water weighs about 8 pounds) Regular diet Order Comments: -- Eat a wide variety of foods, including fruits and vegetables, dairy, grains and meats. Caring for your wound or incision Order Comments: Your wound or incision is located on your mid abdomen -- Your wound or incision was closed with skin glue and Steri-Strips?? (tape- like strips). Leave white dressing strips in place over skin glue. Strips may begin to fall off in about a week, if still on in 10 days, peel strips and glue off.. Take your medicine and plan ahead for refills Order Comments: - It is important that you take the medicines on your list. Work with your health care provider or pharmacist if you have questions about your medicine. - Plan ahead and use the Refill Line so that you don't run out of your medicine. It may take time to review your chart and get the medicine ordered. Acetaminophen (Tylenol) Safety Order Comments: -- Read all labels for prescription and Kcwn-rds-[id number] medicines. Ask the pharmacist if your prescription pain medicine contains acetaminophen. -- Do not take more than one medicine that contains acetaminophen at a time. -- Do not take more of an acetaminophen-containing medicine than directed by your provider. Adults should not take more than 2 tablets at a time and no more than 3000 mg in a 24 hour period. For children, see label or package information or ask a pharmacist, and do not give more than 5 doses in 24 hours. -- Do not drink alcohol when taking medicines that contain acetaminophen. -- Stop taking your medication and seek medical help immediately if you: ---- Think you have taken more acetaminophen than directed ---- Have an allergic reaction such as swelling of the face, mouth, and throat, difficulty breathing, itching, or rash Discussed diagnosis and treatment plan with the patient. Patient verbalized understanding of condition and treatment plan. At the time of discharge, Narciso Resendiz is tolerating a regular diet, pain is controlled with oralmedication, and is ambulating independently. Narciso Resendiz is agreeable to discharge and is aware to follow-up as above. READMISSION PLANNED WITHIN 30 DAYS OF DISCHARGE? No I have personally spent greater than 30 minutes in discharge coordination for this patient. Ra Delgado PA-C, 03/21/2024 9:05 AM documented in this encounter Discharge Instructions * Attachments The following attachments cannot be sent through Care Everywhere. * Cholecystectomy Discharge Instructions (Citizen [place]) documented in this encounter Medications at Time of Discharge Medication Sig Dispensed Refills Start Date End Date acetaminophen (TYLENOL) 325 mg oral tablet Take 2 tablets (650 mg) by mouth every 6 hours as needed for Mild Pain. 30 tablet 03/21/2024 senna (SENOKOT) 8.6 mg oral tablet Take 1 tablet (8.6 mg) by mouth twice daily as needed for Constipation. 20 tablet 03/21/2024 lisinopril (PRINIVIL;ZESTRIL) 40 mg oral TABS Take 1 tablet (40 mg) by mouth daily. hydroCHLOROthiazide 25 mg oral TABS Take 1 tablet (25 mg) by mouth daily. amLODIPine (NORVASC) 10 mg oral tablet Take 1 tablet (10 mg) by mouth daily. esomeprazole magnesium (NEXIUM) [address] Take 40 mg by mouth twice daily. documented as of this encounter Progress Notes * Na Lemus RN - 03/21/2024 11:32 AM CDT DISCHARGE NOTE D: Patient is being discharged. A: (As documented in the Discharge Planning Flowsheet) Discharge Instructions (AVS): AVS given Discharge clothing/valuables: has adequate clothing Discharge medications: patient received medications Home equipment status: no equipment needed Home equipment/supplies recommended: None Final discharge destination: Home or self care R: The patient and family understood the AVS. P: Support patient and family if they call back with questions.Na Lemus RN, 03/21/2024 11:32 AM * Ra Delgado PA-C - 03/20/2024 5:13 PM CDT MEDICINE PROGRESS NOTE - CRISTINA Narciso Resendiz : 1970 Sex: male Narciso Resendiz is a 54 y.o. male with PMH significant for HTN, GERD, obesity admitted on 03/17/2024 with suspected choledocholithiasis. ASSESSMENT AND PLAN BY PROBLEM Acute liver injury likely 2/2 cholestasis due to choledocholithiasis, improving: Acute cholecystitis: Presented to outside ED ([place], [place]) -> family thought jaundiced, pt c/o abdominal pain & diarrhea. LFTs 03/17: alk phos 169, ALT 264, AST 171, dBili 7.3, tBili 8.8 -> repeat 03/18 dBili 8.5, tBili 10.6 -> now down-trending after ERCP & stone removal. HBV/HCVscreens negative. Lipase remained WNL. MRCP 03/18 also with cholecystitis, surgery performed cholecys tectomy 03/20. -Continue IV ciprofloxacin + metronidazole overnight per surgery -ERCP for stent removal in 6 weeks (GI routed for scheduling) -Outpatient surgery follow-up 04/01 (Dr. Sandhu) -Surgery will re-evaluate in AM Hyponatremia, hypokalemia, & hypophosphatemia: K chris 2.9, Na 131, P 2.0. Suspect hypovolemic hyponatremia. Supplement PRN. HTN: SHEARER HELPER amlodipine 10 mg daily + hydrochlorothiazide 25 mg daily + lisinopril 40 mg daily. -Hold thiazide for now -MAREK + CCB continued Chronic Conditions -Obesity: BMI 32.9, noted. May impact complexity of imaging and procedures while hospitalized. Diet: Clears, ADAT VTE Px: Low risk as fully ambulatory; re-assess daily Tele: None Lines: No joshi or central line Ethics: Patient is a Full Code Disposition: Anticipate DC home 03/21. SUBJECTIVE (Interval Hx) No concerns when seen after surgery today. OBJECTIVE BP 131/72 (Cuff Location: Left Arm) Pulse 62 Temp 36.3 ??C (97.4 ??F) (Tympanic) Resp 13 Ht1.905 m (6' 3) Wt 119.4 kg (263 lb 3.2 oz) SpO2 94% BMI 32.90 kg/m?? General appearance: Alert, NAD. Head: Normocephalic, no masses, & no lesions. Eyes: Sclera non-icteric. Pulmonary: CTAB. No crackles, wheezes or rhonchi. No cough, dyspnea. Cardiovascular: Heart: RRR. S1, S2. No murmur appreciated. Peripheral vascular: No LE edema Gastrointestinal Abdominal: Soft and non-distended with active bowel sounds. Ice packs over abdomen when entered. Moderate tenderness to superficial palpation. Genitourinary: No Joshi. Musculoskeletal: Extremities: Moves all extremities without difficulty, sits up in bed without assist. Did not formally assess ROM or strength. Skin: Normal skin color, texture, and turgor. I reviewed all the labs, pathology, & radiology data from today. Pertinent results discussed under A/P. I have spent 50 minutes with this patient today in which greater than 50% of this time was spent incounseling/coordination of care regarding plan of care, discussion w/tx team including nursing, surgery physician. Ra Delgado PA-C, 03/20/2024 5:17 PM * Jayleen Sandhu MD - 03/20/2024 8:06 AM CDT SURGERY PROGRESS NOTE - PGY1 24 Hour Events: Planned for laparoscopic cholecystectomy, denies any abdominal pain, fever. Has itching all over the body SUBJECTIVE: S: Patient reports feeling well and no abd pain. Denies n/v. Has flatus but no BM for more than 5 days. PHYSICAL EXAM: BP 119/74 (Cuff Location: Left Arm) Pulse 50 Temp 36.3 ??C (97.4 ??F) (Tympanic) Resp 18 Ht1.905 m (6' 3) Wt 119.4 kg (263 lb 3.2 oz) SpO2 98% BMI 32.90 kg/m?? Neuro: A&Ox3, no focal deficits Gen: comfortable, no acute distress Resp: nonlabored breathing Abd: soft, nontender, nondistended Ext: warm, well perfused, no edema Eyes: Icterus + LABS: CMP Lab Results Component Value Date/Time NA 133 (L) 03/20/2024 0436 K 3.4 (L) 03/20/2024 0436 CHLORIDE 99 03/20/2024 0436 CO2 21 (L) 03/20/2024 0436 GLU 93 03/20/2024 0436 UN 15 03/20/2024 0436 CR 0.81 03/20/2024 0436 CA 8.3 (L) 03/20/2024 0436 ALBUMIN 3.2 (L) 03/20/2024 0436 TPRO 6.5 03/20/2024 0436 ALP 129 03/20/2024 0436 ALT 126 (H) 03/20/2024 0436 AST 50 (H) 03/20/2024 0436 TBILI 3.9 (H) 03/20/2024 0436 CBC Lab Results Component Value Date/Time WBC 6.80 03/20/2024 0436 RBC 4.30 (L) 03/20/2024 0436 HGB 13.4 03/20/2024 0436 HCT 39.9 (L) 03/20/2024 0436 PLT 271 03/20/2024 0436 Hepatic Lab Results Component Value Date/Time ALBUMIN 3.2 (L) 03/20/2024 0436 ALP 129 03/20/2024 0436 ALT 126 (H) 03/20/2024 0436 AST 50 (H) 03/20/2024 0436 BILIDIR 2.3 (H) 03/20/2024 0436 TBILI 3.9 (H) 03/20/2024 0436 TPRO 6.5 03/20/2024 0436 RADIOLOGY: MRI MRCP Impression: 1. Cholelithiasis with findings concerning for cholecystitis. 2. Marked intrahepatic and extrahepatic biliary dilatation. Findings highly concerning for a small obstructing stone at the ampulla. 3. Mild splenomegaly. XR ERCP: - The major papilla appeared to be bulging. [...] was placed into the common bile duct. ASSESSMENT: 54 y.o. male w/ PMH of HTN, GERD and AUD 2 Day Post-Op s/p ERCP on 03/18 for choledocholithiasis. Pttransferred from OSH for ERCP. MRCP showed signs of cholecystitis along with intrahepatic and extrahepatic dilation concerning for small obstructing stone at the ampulla. Initial LFTS elevated (ALT 264, AST 171 and alk phos 169). Repeat after ERCP (Lipase 27, ALT 126, AST 50, Alk phos 129, Bili Direct 2.3, and Bili Total 3.9). No concern for post ERCP pancreatitis. Currently planned for laparoscopic cholecystectomy. PLAN: # Lap Cholecystomy Diet: NPO Pain control: Tylenol PRN Antibiotics: Continue Cipro and Flagyl Weight Bearing: ambulating ad lavon DVT prophylaxis: None. Scheduled surgery GI prophylaxis: None PT/OT: Not indicated Xrays needed: None Labs needed: None Disposition: Plan for discharge to: Home Tere Peters MD PGY1 General Surgery Service FACULTY NOTE I saw and evaluated the patient on the date of the resident's note. I discussed with the resident and agree with the resident???s findings and plan documented in the resident???s note from above. Anyrevisions by me are documented. Jayleen Sandhu MD, 03/20/2024 12:45 PM * Ra Delgado PA-C - 03/19/2024 10:28 AM CDT MEDICINE PROGRESS NOTE - CRISTINA Resendiz : 1970 Sex: male Narciso Resendiz is a 54 y.o. male with PMH significant for HTN, GERD, obesity admitted on 03/17/2024 with suspected choledocholithiasis. ASSESSMENT AND PLAN BY PROBLEM Suspected choledocholithiasis: Acute liver injury likely 2/2 cholestasis: Suspected acute cholecystitis: Presented to outside ED ([place], [place]) -> family thought jaundiced, pt c/o abdominal pain & diarrhea. LFTs 03/17: alk phos 169, ALT 264, AST 171, dBili 7.3, tBili 8.8 -> repeat 03/18 dBili 8.5, tBili 10.6. Outside US images unavailable. HBV/HCV screens negative. MRCP 03/18 highly suspicious for small obstructing stone at ampulla, also cholecystitis. GI & surgery consulted: -Cholecystectomy tentatively 03/20 -> NPO @ midnight -Trend LFTs -IV ciprofloxacin + metronidazole per surgery -ERCP for stent removal in 6 weeks (GI routed for scheduling) Hyponatremia: Hypokalemia, hypophosphatemia, resolved: K chris 2.9, Na 131, P 2.0. Suspect hypovolemic hyponatremia. -Encouraging PO intake HTN: SHEARER HELPER amlodipine 10 mg daily + hydrochlorothiazide 25 mg daily + lisinopril 40 mg daily. -Hold thiazide for now -MAREK + CCB continued Chronic Conditions -Obesity: BMI 32.9, noted. May impact complexity of imaging and procedures while hospitalized. Diet: Regular; NPO at midnight VTE Px: Low risk as fully ambulatory; re-assess daily Tele: None Lines: No joshi or central line Ethics: Patient is a Full Code Disposition: Anticipate DC home as soon as 03/20. SUBJECTIVE (Interval Hx) No pain or new concerns today. Hopes to leave hospital soon. OBJECTIVE BP 125/76 (Cuff Location: Left Arm) Pulse 56 Temp 36.4 ??C (97.5 ??F) (Tympanic) Resp 18 Ht1.905 m (6' 3) Wt 119.4 kg (263 lb 3.2 oz) SpO2 99% BMI 32.90 kg/m?? General appearance: Alert, NAD. Head: Normocephalic, no masses, & no lesions. Eyes: Sclera non-icteric. Pulmonary: CTAB. No crackles, wheezes or rhonchi. No cough, dyspnea. Cardiovascular: Heart: RRR. S1, S2. No murmur appreciated. Peripheral vascular: No LE edema Gastrointestinal Abdominal: Soft, non-tender including with deep palpation, and non-distended with active bowel sounds. Genitourinary: No Joshi. Musculoskeletal: Extremities: Moves all extremities without difficulty, sits up in bed without assist. Did not formally assess ROM or strength. Skin: Normal skin color, texture, and turgor. No rashes or lesions. I reviewed all the labs, pathology, & radiology data from today. Pertinent results discussed under A/P. I have spent 50 minutes with this patient today in which greater than 50% of this time was spent incounseling/coordination of care regarding plan of care, discussion w/tx team including nursing, surgery physician & MAURO. Ra Delgado PA-C, 03/19/2024 10:28 AM * Obdulio Edmonds MD - 03/19/2024 8:56 AM CDT SURGERY PROGRESS NOTE - PGY1 24 Hour Events: SUBJECTIVE: S: Patient reports feeling well and no abd pain. Denies n/v. Has flatus but no BM for 13 days. PHYSICAL EXAM: BP 125/76 (Cuff Location: Left Arm) Pulse 56 Temp 36.4 ??C (97.5 ??F) (Tympanic) Resp 18 Ht1.905 m (6' 3) Wt 119.4 kg (263 lb 3.2 oz) SpO2 99% BMI 32.90 kg/m?? Neuro: A&Ox3, no focal deficits Gen: comfortable, no acute distress Resp: nonlabored breathing Abd: soft, nontender, nondistended Ext: warm, well perfused, no edema LABS: CMP Lab Results Component Value Date/Time NA 133 (L) 03/19/2024 0635 K 3.6 03/19/2024 0635 CHLORIDE 96 03/19/2024 0635 CO2 25 03/19/2024 0635 GLU 106 (H) 03/19/2024 0635 UN 14 03/19/2024 0635 CR 0.85 03/19/2024 0635 CA 8.6 03/19/2024 0635 ALBUMIN 3.5 (L) 03/19/2024 0635 TPRO 7.2 03/19/2024 0635 ALP 164 (H) 03/19/2024 0635 ALT 177 (H) 03/19/2024 0635 AST 72 (H) 03/19/2024 0635 TBILI 5.4 (H) 03/19/2024 0635 CBC Lab Results Component Value Date/Time WBC 9.43 03/19/2024 0635 RBC 4.61 03/19/2024 0635 HGB 14.3 03/19/2024 0635 HCT 42.6 03/19/2024 0635 PLT 296 03/19/2024 0635 Hepatic Lab Results Component Value Date/Time ALBUMIN 3.5 (L) 03/19/2024 0635 ALP 164 (H) 03/19/2024 0635 ALT 177 (H) 03/19/2024 0635 AST 72 (H) 03/19/2024 0635 BILIDIR 3.5 (H) 03/19/2024 0635 TBILI 5.4 (H) 03/19/2024 0635 TPRO 7.2 03/19/2024 0635 RADIOLOGY: MRI MRCP Impression: 1. Cholelithiasis with findings concerning for cholecystitis. 2. Marked intrahepatic and extrahepatic biliary dilatation. Findings highly concerning for a small obstructing stone at the ampulla. 3. Mild splenomegaly. XR ERCP: No read back yet. ASSESSMENT: 54 y.o. male w/ PMH of HTN, GERD and AUD 1 Day Post-Op s/p ERCP on 03/18 for choledocholithiasis. Pttransferred from OSH for ERCP. MRCP showed signs of cholecystitis along with intrahepatic and extrahepatic dilation concerning for small obstructing stone at the ampulla. Initial LFTS elevated (ALT 264, AST 171 and alk phos 169). Repeat after ERCP (Lipase 25, ALT 177, AST 72, Alk phos 164, Bili Direct 3.5, and Bili Total 5.4). No concern for post ERCP pancreatitis. PLAN: #Cholecystomy -Will be done during this admission. Working to schedule surgery. Diet: Regular diet Pain control: po pain meds Antibiotics: Continue Cipro and Flagyl Weight Bearing: ambulating ad lavon DVT prophylaxis: None GI prophylaxis: None PT/OT: Not indicated Xrays needed: None Labs needed: CBC, Lipase, BMP, LFTs Disposition: Plan for discharge to: Home Aaliyah Tripp MD PGY1 General Surgery Service FACULTY NOTE I saw and evaluated the patient on the date of the resident's note. I discussed with the resident and agree with the resident???s findings and plan documented in the resident???s note from above. Anyrevisions by me are documented. Obdulio Edmonds MD, 03/21/2024 8:11 AM * Clarissa Gutierrez PA-C - 03/19/2024 8:21 AM CDT Images from the original note were not included. GASTROENTEROLOGY PROGRESS NOTE - CRISTINA Narciso Resendiz : 1970 Sex: male PATIENT SUMMARY: Narciso Resendiz is a 54 y.o. male with past medical history of HTN, GERD and alcohol use disorder who presented to OSH with jaundice and abdominal bloating. Found to elevated liver chemistries and abdominal imaging showed cholelithiasis with a common bile duct at the upper limits of normal. Patient was transferred to [facility] on 03/17/24 for concern of choledocholithiasis and consideration of ERCP. IMPRESSION AND RECOMMENDATIONS: Choledocholithiasis with acute cholecystitis Alcohol use disorder Patient with significant alcohol use disorder presented to outside hospital with jaundiced and abdominal bloating. Labs notable for Alk phos 169, ALT 264, AST 161, direct bilirubin 7.3, and total bilirubin 8.8. CBC, INR, and lipase were wnl. OSH abdominal US showed a 7 mm CBD and cholelithiasis. Hewas transferred to [facility] 03/17/24 for concerns of choledocholithiasis and consideration of ERCP. No e/o ascending cholangitis, hep B and C negative. MRCP 03/18/24 showed signs of cholecystitis along with intrahepatic and extrahepatic dilation concerning for small obstructing stone in ampulla. ERCP 03/18 with evidence of choledocholithiasis s/p biliary sphincterotomy, removal of choledocholithiasis, and CBD stent placement. Hepatic panel today with significant improvement, ALT 177, AST 72, direct bili 3.5 and Tbili 5.4. Of note, suspect some degree of alcoholic hepatitis is contributing to transaminitis. Patient continues to deny abdominal pain and lipase 25 this morning. RECOMMENDATIONS: Trend LFTs. Surgery consultation for consideration of cholecystectomy this admission. Antibiotics for cholecystitis per surgery team. Avoid aspirin and NSAIDs for 7 days. Primary Care follow up one-week after discharge for repeat liver chemistries. Repeat ERCP in 6 weeks for stent removal (GI will arrange). Discussed with patient recommendation to abstain for alcohol. GI will sign off. It was a pleasure to participate in the care of this patient. Patient seen, examined and plan formulated with GI staff, Dr. Meyer. SUBJECTIVE: Overnight, the patient has been vitally stable. He denies any abdominal pain, fevers, and chills. No nausea. He has been passing gas, but no bowel movements. He reports that he is hungry and looking forward to eating. He clarifies that he started drinking alcohol in 2018. It gradually increased to 750 ml daily untila couple weeks ago. He stopped cold turkey and didn't have any withdrawal effects. PHYSICAL EXAMINATION: VS: Vitals: 03/18/24 2300 BP: 125/76 Pulse: 56 Resp: 18 Temp: 36.4 ??C (97.5 ??F) SpO2: 99% GEN: alert, cooperative, and in no distress EYE: no scleral icterus PULM: comfortably breathing on room air ABD: normal active bowel sounds, no hepatosplenomegaly, no tenderness, no bruits and no pulsatile mass. and soft, non-tender, non-distended, normoactive bowel sounds SKIN: no jaundice NEURO: oriented REVIEW OF LABORATORY, PATHOLOGY AND RADIOLOGY DATA: Reviewed and significant for: Lab Results Component Value Date/Time WBC 9.43 03/19/2024 0635 RBC 4.61 03/19/2024 0635 HGB 14.3 03/19/2024 0635 HCT 42.6 03/19/2024 0635 PLT 296 03/19/2024 0635 MCV 92.4 03/19/2024 0635 MCH 31.0 03/19/2024 0635 MCHC 33.6 03/19/2024 0635 RDW 13.2 03/19/2024 0635 MPV 10.2 03/19/2024 0635 Lab Results Component Value Date/Time ALBUMIN 3.5 (L) 03/19/2024 0635 ALP 164 (H) 03/19/2024 0635 ALT 177 (H) 03/19/2024 0635 AST 72 (H) 03/19/2024 0635 BILIDIR 3.5 (H) 03/19/2024 0635 TBILI 5.4 (H) 03/19/2024 0635 TPRO 7.2 03/19/2024 0635 Lab Results Component Value Date/Time NA 133 (L) 03/19/2024 0635 K 3.6 03/19/2024 0635 CHLORIDE 96 03/19/2024 0635 CO2 25 03/19/2024 0635 GLU 106 (H) 03/19/2024 0635 UN 14 03/19/2024 0635 CR 0.85 03/19/202435 CA 8.6 03/19/2024 0635 ERCP: ERCP (03/18/2024 14:11) Impression: - The major papilla appeared to be bulging. [...] placed into the common bile duct. Recommendation: - Return patient to hospital lam for ongoing [...] week after discharge with repeat liver chemistries. Clarissa Gutierrez PA-C, 03/19/2024 8:21 AM * Denise Mcguire RN - 03/18/2024 8:13 PM CDT In pts chart to perform bedside cares. * Osmany Jorge RN - 03/18/2024 5:22 PM CDT NURSING ADMISSION NOTE Narciso Resendiz : 1970 SEX: male D: Narciso Resendiz was returned to [facility] from PACU at 1700 for Choledocholithiasis . Patient: alert. Skin: Normal in appearance without lesions, rash or lacerations. Pain: Denies. Upon return to unit, a Four Eyes Skin Inspection was completed with Missy Nunn ([facility]) (Name & Title). Skin injuries were not present, and skin breakdown needing further assessment will be added toAvatar. Will implement interventions from Skin INJURY Bundle as appropriate. BP 127/72 (Cuff Location: Left Arm) Pulse 48 Temp 36.1 ??C (97 ??F) Resp 16 Ht 1.905 m (6' 3) Wt 119.4 kg (263 lb 3.2 oz) SpO2 99% BMI 32.90 kg/m?? A: Pt oriented to unit, room, and use of call light. Routine admit screens started. Telemetry not ordered. R:PATIENT AND/OR FAMILY: patient was able to verbalize understanding of unit policy and plan of care. Questions answered. Learning considerations: None. P: Implement orders as received. Will continue to monitor, follow plan of care, and notify providerand/or team as needed. Osmany Jorge RN, 03/18/2024 5:22 PM Patient Belonging 03/17/2024 0400 Medications brought in by patient?: None * Zion Clark MD - 03/18/2024 10:52 AM CDT Images from the original note were not included. FACULTY NOTE I saw and evaluated the patient today, 03/18/2024. I discussed with the resident and agree with the resident???s findings and plan documented in the resident???s note from above. Any revisions by me are documented. Zion Clark MD, 03/18/2024 1:27 PM GASTROENTEROLOGY PROGRESS NOTE - Medical Student Narciso Resendiz : 1970 Sex: male PATIENT SUMMARY: Narciso Resendiz is a 54 y.o. male with past medical history of HTN, GERD and alcohol use disorder who presented to an outside hospital with chronic bloating and new jaundice. GI is consulted for c/f choledocholithiasis. IMPRESSION AND RECOMMENDATIONS: At the OSH, found to have elevated liver chemistries (Tbili 8.8, Dbili 7.3, alk phos 170, AST 161, ALT 264- we do not have bl LFTs). Normal lipase and WBC, has been hemodynamically stable with no fevers. US showed cholelithiasis with a mildly dilated common bile duct (7 mm). He was transferred to [facility] 03/17[place]24 for concerns of choledocholithiasis and consideration of ERCP. No e/o ascending cholangitis, hep B and C negative. Most likely etiology of abnormal LFTs is alcoholic hepatitis (chronicallydrinks 1L alcohol/day). MRCP was done today with findings of cholelithiasis concerning for cholecystitis and marked intrahepatic and extrahepatic biliary dilatation. Highly concerning for a small obstructing stone at the ampulla. GI will proceed with ERCP planned for today. CBD 9mm. Keep NPO ERCP already scheduled for today 3. Trend LFTs GI will continue to follow up. It was a pleasure to participate in the care of this patient. Patient seen, examined and plan formulated with GI staff, Dr. Meyer. SUBJECTIVE: Denies any abdominal pain, no nausea, vomiting, fevers or chills. No new concerns. PHYSICAL EXAMINATION: VS: BP 116/72 (Cuff Location: Left Arm) Pulse 58 Temp 36.3 ??C (97.4 ??F) (Tympanic) Resp 16 Ht 1.905 m (6' 3) Wt 119.4 kg (263 lb 3.2 oz) SpO2 99% BMI 32.90 kg/m?? GEN: alert, cooperative, and in no distress. ABD: soft, non-tender, non-distended, normoactive bowel sounds. No rebound SKIN: Warm and dry. No jaundice. No rashes or lesions. NEURO: Alert and cooperative, no focal deficits. REVIEW OF LABORATORY, PATHOLOGY AND RADIOLOGY DATA: Lab Results Component Value Date/Time WBC 8.42 03/18/2024 0717 RBC 4.79 03/18/2024 0717 HGB 15.3 03/18/2024 0717 HCT 44.4 03/18/2024 0717 PLT 303 03/18/2024 0717 Lab Results Component Value Date/Time NA 131 (L) 03/18/2024 0717 K 3.4 (L) 03/18/2024 0717 CHLORIDE 94 03/18/202417 CO2 26 03/18/2024 0717 GLU 102 (H) 03/18/2024 0717 UN 11 03/18/2024 0717 CR 0.73 03/18/2024 0717 CA 8.7 03/18/2024 0717 Lab Results Component Value Date/Time ALBUMIN 3.5 (L) 03/18/2024 0717 ALP 170 (H) 03/18/2024 0717 ALT 235 (H) 03/18/2024 0717 AST 145 (H) 03/18/2024 0717 BILIDIR 8.5 (H) 03/18/2024 0717 TBILI 10.6 (H) 03/18/2024 0717 TPRO 7.2 03/18/2024 0717 Lab Results Component Value Date/Time LIPASE 39 03/17/2024 0540 MR MRCP WITHOUT CONTRAST (03/18/2024 11:33) 1. Cholelithiasis with findings concerning for cholecystitis. 2. Marked intrahepatic and extrahepatic biliary dilatation. Findings highly concerning for a small obstructing stone at the ampulla. 3. Mild splenomegaly. Radha Palomares, , 03/18/2024 10:52 AM * Justin Gaffney RN - 03/18/2024 8:50 AM CDT 03/18/24 0848 Rapid Rounds Attendance Physician;gardening manager Today we still await: Clinical stability;Diagnostic workup;Symptomatic control Case Management Discharge Milestones Documentation CM Assessment Completed? Yes Patient/Family agree w/DC plan? (TBD) Transportation Plan (TBD) Prior Auth/Pre-Admit Screen Not applicable Dispo TBD, pending consults, pt is NPO. Justin Gaffney, SANYA, 03/18/2024 8:51 AM Justin Cee RN Clinical Coordinator, BSN [employer] * Ra Delgado PA-C - 03/18/2024 8:48 AM CDT MEDICINE PROGRESS NOTE - CRISTINA Narciso Resendiz : 1970 Sex: male Narciso Resendiz is a 54 y.o. male with PMH significant for HTN, GERD, obesity admitted on 03/17/2024 with suspected choledocholithiasis. ASSESSMENT AND PLAN BY PROBLEM Suspected choledocholithiasis: Acute liver injury likely 2/2 cholestasis: Suspected acute cholecystitis: Presented to outside ED ([place], [place]) -> family thought jaundiced, pt c/o abdominal pain & diarrhea. LFTs 03/17: alk phos 169, ALT 264, AST 171, dBili 7.3, tBili 8.8 -> repeat 03/18 dBili 8.5, tBili 10.6. Outside US images unavailable. HBV/HCV screens negative. MRCP 03/18 highly suspicious for small obstructing stone at ampulla, also cholecystitis. GI & surgery consulted: -NPO -> ERCP today -Cholecystectomy 03/19 AM -> NPO @ midnight -Trend LFTs -IV ciprofloxacin + metronidazole per surgery Hyponatremia: Hypokalemia, hypophosphatemia: K chris 2.9, Na 131, P 2.0. -Supplement, trend -IVF bolus HTN: SHEARER HELPER amlodipine 10 mg daily + hydrochlorothiazide 25 mg daily + lisinopril 40 mg daily. -Hold thiazide for now -MAREK + CCB continued Chronic Conditions -Obesity: BMI 32.9, noted. May impact complexity of imaging and procedures while hospitalized. Diet: NPO VTE Px: Low risk as fully ambulatory; re-assess daily Tele: None Lines: No joshi or central line Ethics: Patient is a Full Code Disposition: Anticipate DC home as soon as 03/19. SUBJECTIVE (Interval Hx) No new concerns today. Minimal abdominal pain. Concerned with missing work. OBJECTIVE BP 132/75 (Cuff Location: Right Arm) Pulse 58 Temp 36.3 ??C (97.4 ??F) (Tympanic) Resp 18 Ht 1.905 m (6' 3) Wt 119.4 kg (263 lb 3.2 oz) SpO2 99% BMI 32.90 kg/m?? General appearance: Alert, NAD. Head: Normocephalic, no masses, & no lesions. Eyes: Sclera non-icteric. Pulmonary: CTAB. No crackles, wheezes or rhonchi. No cough, dyspnea. Cardiovascular: Heart: RRR. S1, S2. No murmur appreciated. Peripheral vascular: No LE edema Gastrointestinal Abdominal: Soft, non-tender and non-distended with active bowel sounds. Genitourinary: No Joshi. Musculoskeletal: Extremities: Moves all extremities without difficulty, sits up in bed without assist. Did not formally assess ROM or strength. Skin: Normal skin color, texture, and turgor. No rashes or lesions. I reviewed all the labs, pathology, & radiology data from today. Pertinent results discussed under A/P. I have spent 50 minutes with this patient today in which greater than 50% of this time was spent incounseling/coordination of care regarding plan of care, discussion w/tx team including nursing, clinical coordinator, GI & surgery physicians. Ra Delgado PA-C, 03/18/2024 8:48 AM * Dewey Palmer MDIV - 03/17/2024 2:53 PM CDT Spiritual Care Note Narciso Resendiz : 1970 Sex: male LOS: 0 days Summary: Seminarian TE visited with pt when attempting to visit roommate who was not present. Plan: Chaplains are available as needed. Dewey Palmer MDIV, 03/17/2024 2:53 PM Number: [phone] * Stella Ray LGSW - 03/17/2024 10:26 AM CDT Care Coordination Assessment Patient Name: Narciso Resendiz Date: 03/17/2024 Expected DC Date: Social Information Kersey Department Supervisor Used: None needed Decision Maker at Admission: Self Living Situation: Home Patient Identified Support System: Family Services Receiving: None Complex Medical Needs: None Transportation Used for Discharge: Family Safety Concerns: None Behavioral Health Concerns: None Patient Family Goals Patient's Discharge Goal: Home Family's Discharge Goal: Unk Plan/Interventions Expected Discharge Disposition: Other (Comment) Patient Information Verification Verified demographic information, including SSN, Next of Kin, and Guardianship: Yes Verified PCP: Yes If post-acute placement is needed, have vaccination status needs been addressed?: Not applicable Risks for Readmission: None Summary of pertinent information: SW assisting RNCC in completing initial assessment. Comes from home with good family support. Likely family to transport back home. No social work needs identified at this time of the initial assessment. Please place a consult if patient or medical provider identify a need for social work. Stella Ray LGSW, 03/17/2024 10:26 AM * Ra Delgado PA-C - 03/17/2024 9:16 AM CDT MEDICINE PROGRESS NOTE - CRISTINA Narciso Resendiz : 1970 Sex: male Narciso Resendiz is a 54 y.o. male with PMH significant for HTN, GERD, obesity admitted on 03/17/2024 with suspected choledocholithiasis. ASSESSMENT AND PLAN BY PROBLEM Suspected choledocholithiasis: Presented to outside ED ([place], [place]) -> family thought jaundiced, pt c/o abdominal pain & diarrhea. Outside US images unavailable (paged CC to attempt to obtain, outside system does not use [facility]). LFTs 03/17: alk phos 169, ALT 264, AST 171, dBili 7.3, tBili 8.8. GI consulted: -NPO -MRCP ordered -HBV/HCV screens -Trend LFTs ADDENDUM: Radiology unable to complete MRCP today. Diet ordered, NPO @ midnight with plan for MRCP 03/18 AM. K replacement continues, protocol ordered. Hyponatremia: Hypokalemia, hypophosphatemia: K chris 2.9, Na 132, P 2.1 -Supplement, trend -IVF bolus HTN: SHEARER HELPER amlodipine 10 mg daily + hydrochlorothiazide 25 mg daily + lisinopril 40 mg daily. -Hold thiazide for now -MAREK + CCB continued Chronic Conditions -HTN: Amlodipine 10 mg daily + hydrochlorothiazide 25 mg daily + lisinopril 40 mg daily. -Obesity: BMI 32.9, noted. May impact complexity of imaging and procedures while hospitalized. Diet: NPO VTE Px: Low risk as fully ambulatory; re-assess daily Tele: Ordered Lines: No joshi or central line Ethics: Patient is a Full Code Disposition: Unclear timeframe. SUBJECTIVE (Interval Hx) Reports intermittent chronic abdominal pain since childhood, minimal pain today. OBJECTIVE BP 117/58 (Cuff Location: Right Arm) Pulse 71 Temp 36.1 ??C (96.9 ??F) (Axillary) Resp 16 Ht 1.905 m (6' 3) Wt 119.4 kg (263 lb 3.2 oz) SpO2 96% BMI 32.90 kg/m?? General appearance: Alert, NAD. Head: Normocephalic, no masses, & no lesions. Eyes: Sclera non-icteric. Pulmonary: CTAB. No crackles, wheezes or rhonchi. No cough, dyspnea. Cardiovascular: Heart: RRR. S1, S2. No murmur appreciated. Peripheral vascular: No LE edema Gastrointestinal Abdominal: Soft and non-distended with active bowel sounds. Mild diffuse abdominal pain with moderate palpation. Genitourinary: No Joshi. Musculoskeletal: Extremities: Moves all extremities without difficulty, sits up in bed without assist. Did not formally assess ROM or strength. Skin: Normal skin color, texture, and turgor. No rashes or lesions. I reviewed all the labs, pathology, & radiology data from today. Pertinent results discussed under A/P. I have spent 50 minutes with this patient today in which greater than 50% of this time was spent incounseling/coordination of care regarding plan of care, discussion w/tx team including nursing, clinical coordinator, GI physician. Ra Delgado PA-C, 03/17/2024 9:16 AM * Dylan Vazquez MD - 03/17/2024 2:16 AM CDT Handoff Communication Note for Hospital Admission Verbal handoff received from Denia in [facility]. Patient Class: Inpatient Cardiac Monitoring: Not needed Brief summary of handoff from ED/Clinic Staff: 54 year old man transferred to [facility] for choledocholithiasis and consideration of ERCP. No evidence of cholangitis. Initially pended to RTU, but since this is urgent procedure meets inpatient criteria. IP admit order will be placed in accordance with the patient class designation above. Please page the MOD Team via [employer] with clinical updates or status changes. Note is for documentation only and not for billing purposes. Dylan Vazquez MD, 03/17/2024 2:16 AM documented in this encounter H&P Notes * Dylan Vazquez MD - 03/17/2024 3:29 AM CDT MEDICINE HISTORY AND PHYSICAL Narciso Resendiz : 1970 Sex: male Patient Summary: Narciso Resendiz is a 54 y.o. man admitted on 03/17/2024 with choledocholithiasis. Assessment and Plan: #Choledocholithiasis No signs of cholangitis, so will hold off on antibiotics. Will need Gastroenterology consult for ERCP and eventual referral to General Surgery for cholecystectomy. -NPO -Start Zosyn if signs of sepsis -Gastroenterology consult for ERCP (ordered but not called) #Hypertension - Continue SHEARER HELPER Hydrochlorothiazide, Lisinopril, Amlodipine Diet: Diet: NPO Code status: Full Code DVT prophylaxis: Contraindicated secondary to procedure Joshi: no Skin issues: none Lines: pIV Dispo: May be able to discharge after ERCP High MDM: Complexity of Problem: [x] Patient has either an acute illness posing a threat to bodily function and/or one acute/chronicillness with severe exacerbation, progression, or side effects from treatment Complexity of Data (Need 2) [x] I talked to a event management consultant and members of the case management, therapy and/or nursing teams [x] I Interpreted tests someone else ordered (reviewing labs/imaging) [] Tests and History (Need 3) [] I reviewed external notes, tests [] I reviewed tests [] I ordered new tests (daily labs) [] I took further history from family or facility Morbidity (Need 1): [] I prescribed or continued IV opiates/benzos [] I managed medications requiring intensive monitoring for toxicity (IV drips) [] I escalated the level of care [] I held a goals of care discussion resulting in a change of code status or de- escalation of care Dylan Vazquez MD, 03/17/2024 3:42 AM Chief Complaint: Abdominal pain, known choledocholithiasis History of Present Illness: Narciso Resendiz is a 54 y.o. man who presented to an outside hospital with one week of abdominal bloating after eating ice cream, dark urine, and jaundice and was found to have choledocholithiasis. Hewas transferred to [facility] for consideration of ERCP. At the time of interview, he says his pain is manageable. No fevers/chills, vomiting, unexplained weight loss. Medical/Surgical History: -Hypertension Psychosocial History: -Lives with Family History: No history of pancreatic cancer Medications: -Hydrochlorothiazide -Amlodipine -Lisinopril Allergies: No Known Drug Allergies Review of systems: A 10-point ROS was performed and is negative other than as above. Objective: Vitals: 03/17/24 0215 03/17/24 0230 03/17/24 0245 03/17/24 0300 BP: 131/78 139/84 167/86 115/54 Cuff Location: Right Arm Patient Position: Lying Down Pulse: 53 58 53 58 Resp: Temp: TempSrc: SpO2: 98% 96% 97% 95% There is no height or weight on file to calculate BMI. Physical Exam Vitals and nursing note reviewed. Constitutional: General: He is not in acute distress. Appearance: He is well-developed. He is not ill-appearing. HENT: Head: Normocephalic and atraumatic. Mouth/Throat: Mouth: Mucous membranes are moist. Pharynx: Oropharynx is clear. No oropharyngeal exudate. Eyes: General: No scleral icterus. Extraocular Movements: Extraocular movements intact. Pupils: Pupils are equal, round, and reactive to light. Cardiovascular: Rate and Rhythm: Normal rate and regular rhythm. Heart sounds: Normal heart sounds. No murmur heard. Pulmonary: Effort: Pulmonary effort is normal. No respiratory distress. Breath sounds: Normal breath sounds. No wheezing or rales. Abdominal: General: Abdomen is flat. Bowel sounds are normal. There is no distension. Palpations: Abdomen is soft. There is no mass. Tenderness: There is no abdominal tenderness. There is no guarding or rebound. Musculoskeletal: General: No swelling or tenderness. Normal range of motion. Right lower leg: No edema. Left lower leg: No edema. Skin: General: Skin is warm and dry. Capillary Refill: Capillary refill takes less than 2 seconds. Coloration: Skin is jaundiced. Neurological: Mental Status: He is alert and oriented to person, place, and time. Cranial Nerves: No cranial nerve deficit. Motor: No weakness. From paper records: Labs: CBC: WBC 8.63, HGB 14.6, PLT 291 BMP: Cr wnl Hepatic panel: AST 269, ALT 385, TBili 8.5, alk phos 154 EKG: NSR Imaging: US Gallbladder with cholelithiasis and 7 mm CBD PCP: No primary care provider on file. Dylan Vazquez MD 03/17/2024 03:42 documented in this encounter Consult Notes * Olga Burrows, DariaD - 03/21/2024 9:07 AM CDT PHARMACY DISCHARGE NOTE Narciso Resendiz : 1970 Sex: male Pharmacy service was consulted for review of patient's discharge medications. I have reviewed the patient's medications for discharge and have discussed the necessary changes with the provider. Changes have been made and medication list updated and complete. Please page with any questions. Olga E Burrows, PharmD 03/21/2024 09:07 For questions regarding this note, please contact pharmacist on service at [facility] ([employer]) [phone]. If no response within needed timeframe, please contact central pharmacy via phone at [phone]. Planned discharge medications are: Medication List Medications Indications acetaminophen 325 mg tablet Commonly known as: TYLENOL Take 2 tablets (650 mg) by mouth every 6 hours as needed for Mild Pain. amLODIPine 10 mg tablet Commonly known as: NORVASC Take 1 tablet (10 mg) by mouth daily. esomeprazole magnesium [address] Commonly known as: NEXIUM Take 40 mg by mouth twice daily. hydroCHLOROthiazide 25 mg Tabs Take 1 tablet (25 mg) by mouth daily. lisinopril 40 mg Tabs Commonly known as: PRINIVIL;ZESTRIL Take 1 tablet (40 mg) by mouth daily. senna 8.6 mg tablet Commonly known as: SENOKOT Take 1 tablet (8.6 mg) by mouth twice daily as needed for Constipation. * Obdulio Edmonds MD - 03/18/2024 1:28 PM CDTAssociated Order(s): CONSULT TO SURGERY GENERAL SURGERY CONSULT - Narciso Resendiz : 1970 Sex: male This patient is being seen in consultation at the request of Dr. Landaverde for evaluation of cholecystitis. Brief Patient Summary: Patient is a 54 y.o. male with past medical history including HTN, GERD and AUD admitted on 03/17/2024 for choledocholithiasis.Pt with 1 week of abdominal bloating and jaundice and found to have choledocholithiasis. Transferred from OSH for ERCP. MRCP showed signs of cholecystitis along with intrahepatic and extrahepatic dilation concerning for small obstructing stone at theampulla. LFTS elevated (ALT 264, AST 171 and alk phos 169). GI consulted and planned for ERCP on 03/18. Assessment and Recommendations Symptomatic choledocholithiasis with acute cholecystitis - NPO at midnight, mIVF - start broad spectrum abx (Cipro/Flagyl) - Will plan for surgery on 03/19/24 with [facility] surgery team Chief Complaint: abdominal pain History of Present Illness/Injury: Narciso Resendiz is a 54 y.o. male presents with 7 days hx of abdominal bloating. Patient also reports nausea without emesis and no fever. He denies similar episodes of pain before. Last meal was 10pm. Hospital Problem List Active Problems: Choledocholithiasis Abnormal LFTs Resolved Problems: * No resolved hospital problems. * Medical/Surgical History Past Medical History: Diagnosis Date Essential (primary) hypertension No past surgical history on file. Social History Occupational History Not on file Tobacco Use Smoking status: Not on file Smokeless tobacco: Not on file Substance and Sexual Activity Alcohol use: Not on file Drug use: Not on file Sexual activity: Not on file Social History Narrative Not on file Family History No family history on file. Medications Medications Prior to Admission Medication Sig lisinopril (PRINIVIL;ZESTRIL) 40 mg oral TABS Take 1 tablet (40 mg) by mouth daily. hydroCHLOROthiazide 25 mg oral TABS Take 1 tablet (25 mg) by mouth daily. amLODIPine (NORVASC) 10 mg oral tablet Take 1 tablet (10 mg) by mouth daily. esomeprazole magnesium (NEXIUM) [address] Take 40 mg by mouth twice daily. Allergies No Known Drug Allergies Review of Systems 10 point review of systems is negative except for dictated items. Physical Exam BP 116/72 (Cuff Location: Left Arm) Pulse 58 Temp 36.3 ??C (97.4 ??F) (Tympanic) Resp 16 Ht1.905 m (6' 3) Wt 119.4 kg (263 lb 3.2 oz) SpO2 99% BMI 32.90 kg/m?? Gen: alert, NAD Neuro: alert, oriented x 3. HEENT: head normocephalic, atraumatic. EOMI. Pulm: breathing easily Abd: soft, non- tender to palpation in , nondistended Extrem: warm, well-perfused. Skin: no rashes, lesions. Labs Labs reviewed Other Diagnostic Studies I have independently viewed the radiology images. I have seen and reviewed Radiology images and results. Primary Care Physician: No primary care provider on file. Attending Physician: Carlos Chen MD Surgery Attending Physician: Dr. Flakita Vaca MD, 03/18/2024 1:29 PM PGY-2, Emergency Medicine. [facility] Surgery Service FACULTY NOTE I saw and evaluated the patient on the date of the resident's note. I discussed with the resident and agree with the resident???s findings and plan documented in the resident???s note from above. Anyrevisions by me are documented. Obdulio Edmonds MD, 03/21/2024 8:41 AM * Zion Clark MD - 03/17/2024 8:57 AM CDTAssociated Order(s): CONSULT TO GASTROINTESTINAL Images from the original note were not included. FACULTY NOTE I saw and evaluated the patient today, 03/17/2024. I discussed with the resident and agree with the resident???s findings and plan documented in the resident???s note from above. Any revisions by me are documented. Zion Clark MD, 03/17/2024 1:43 PM GASTROENTEROLOGY INITIAL CONSULT NOTE - Medical Student Narciso Resendiz : 1970 Sex: male REASON FOR CONSULT: Suspected coledocolithiasis, ERCP REQUESTING PHYSICIAN: Mich Carlos* IMPRESSION: Narciso Resendiz is a 54 y.o. male with past medical history of HTN, GERD and alcohol use disorder who presented to OSH with jaundice and abdominal bloating. Found to elevated liver chemistries and abdominal imaging showed cholelithiasis with a common bile duct at the upper limits of normal. Patient was transferred to [facility] on 03/17/24 for concern of choledocholithiasis and consideration of ERCP. Abdominal bloating Jaundice Elevated liver chemistries Mildly dilated common bile duct Alcohol use disorder Patient with significant alcohol use disorder presented to outside hospital after his family was concerned about him appearing jaundiced. Endorsed abdominal bloating and dark urine. He also had an episode of acholic stool and emesis. Denies fevers, chills, abdominal pain, or signs of bleeding. On arrival, he was afebrile and hemodynamically stable. Exam notable for scleral icterus and jaundice but benign abdomen. Patient is mentating well. Labs notable for Alk phos 169, ALT 264, AST 161, directbilirubin 7.3, and total bilirubin 8.8. CBC, INR, and lipase were wnl. OSH abdominal US showed a 7 mm CBD and cholelithiasis. Suspect clinical presentation is secondary to a gallstone that has already passed given the LFTs are suggestive of obstructive cholestasis along with evidence of mildly dilated CBD. Low suspicion of cholangitis. Other potential etiologies include choledocholithiasis, alcoholic hepatitis, hepatitis B/C, and MAFLD. Given diagnostic uncertainty, recommend MRCP for further evaluation prior to consideration of ERCP. RECOMMENDATIONS: Obtain MRCP Keep NPO Obtain hepatitis B and C serologies Trend LFTs GI will continue to follow. It was a pleasure to participate in the care of this patient. Patient seen, examined and plan formulated with GI staff, Dr. Mitch Decker HISTORY OF PRESENT ILLNESS: Narciso Resendiz is a 54 y.o. male who presented to an outside hospital with abdominal bloating sinceSaturday, dark urine and jaundice. He went to the ED after his family was concerned about him appearing yellow but he states he is asymptomatic. He had one episode of pale stools on Sunday and dark urine that usually resolves after drinking lots of water but didn't clear out completely this time. He denies any abdominal pain, fever, nausea, vomiting or weight loss. He had similar episodes of bloating in the past that resolved spontaneously and has never consulted for this. He stopped drinking 15 days ago but used to drink 1L of alcohol per day, denies tobacco use or other drugs. PAST MEDICAL HISTORY: Past Medical History: Diagnosis Date Essential (primary) hypertension Patient Active Problem List Diagnosis Choledocholithiasis Primary hypertension Morbid obesity (CMS) GERD (gastroesophageal reflux disease) CURRENT MEDICATIONS: Current Facility-Administered Medications Medication VTE prophylaxis contraindicated oxyCODONE (ROXICODONE) tablet 5 mg amLODIPine (NORVASC) tablet 10 mg hydroCHLOROthiazide tablet 25 mg lisinopril (PRINIVIL;ZESTRIL) tablet 40 mg potassium chloride IVPB 10 mEq potassium phosphates 6 mmol in NaCl 0.9% 50 mL IVPB ALLERGIES: No Known Drug Allergies SOCIAL HISTORY: Occupational History Not on file Tobacco Use Smoking status: Not on file Smokeless tobacco: Not on file Substance and Sexual Activity Alcohol use: Not on file Drug use: Not on file Sexual activity: Not on file Social History Narrative Not on file FAMILY HISTORY: No family history on file. REVIEW OF SYSTEMS: A complete 10 point review of systems was obtained. Please see the HPI for pertinent positives and negatives. All other systems were reviewed and found to be negative. PHYSICAL EXAMINATION: VS: BP 117/58 (Cuff Location: Right Arm) Pulse 71 Temp 36.1 ??C (96.9 ??F) (Axillary) Resp 16 Ht 1.905 m (6' 3) Wt 119.4 kg (263 lb 3.2 oz) SpO2 96% BMI 32.90 kg/m?? GEN: alert, cooperative, and in no distress HEENT: PERRLA, eye lids clear, and sclera icterus CV: regular rate and rhythm, no murmurs/rubs/gallops. No lower extremity edema. PULM: Lungs clear bilaterally and no crackles, wheezes or rales ABD: soft, non-tender, non-distended, normoactive bowel sounds. No guarding. Negative Rodriguez sign. SKIN: Warm and dry. Mildly jaundiced NEURO: Alert and cooperative, no focal deficits. REVIEW OF LABORATORY, PATHOLOGY AND RADIOLOGY DATA: Lab Results Component Value Date WBC 9.21 03/17/2024 RBC 4.51 (L) 03/17/2024 HGB 14.1 03/17/2024 HCT 41.0 03/17/2024 PLT 273 03/17/2024 Lab Results Component Value Date NA 132 (L) 03/17/2024 K 2.9 (AA) 03/17/2024 CHLORIDE 93 03/17/2024 CO2 26 03/17/2024 GLU 103 (H) 03/17/2024 UN 13 03/17/2024 CR 0.95 03/17/2024 CA 8.2 (L) 03/17/2024 Lab Results Component Value Date/Time ALBUMIN 3.3 (L) 03/17/2024 0540 ALP 169 (H) 03/17/2024 0540 ALT 264 (H) 03/17/2024 0540 AST 171 (H) 03/17/2024 0540 BILIDIR 7.3 (H) 03/17/2024 0540 TBILI 8.8 (H) 03/17/2024 0540 TPRO 6.9 03/17/2024 0540 Underwent EGD in 2006 for dysphagia s/p dilation. Biopsies were negative Colonoscopy: 03/07/2016 The entire examined colon is normal on direct and retroflexion views. - Repeat colonoscopy in 5 years for surveillance. OSH Abdominal US with doppler 03/17/24 Impression: Cholelithiasis with thickened gallbladder wall. Despite negative sonographic Rodriguez's, acute cholecystitis can not be entirely excluded. Hepatic steatosis Primary care physician: No primary care provider on file. Consulting Physician: Radha Palomares MS, 03/17/2024 8:57 AM RESIDENT WITH STUDENT: I saw the patient with the medical student today, 03/17/2024 and performed, or re-performed, the physical exam and medical decision-making in the provision of this service and have verified the accuracy of all the medical student documentation and edited as necessary. Mahi Lozano MD, 03/17/2024 1:33 PM documented in this encounter OR Notes * OR Surgeon - Jayleen Sandhu MD - 03/20/2024 12:16 PM CDT OPERATIVE REPORT - PGY 5 Narciso Resendiz : 1970 Date of Service: 03/20/24 Procedure: Laparoscopic cholecystectomy Indications: Narciso Resendiz is a 54 y.o. male who presented to the ED on 03/17 with one week of abdominal bloating, pain and jaundice. His initWork up revealed choledocholithiasis and the patient was transferred to [facility]. After an MRCP showed a small obstructing stone at the ampulla, he underwent an ERCP with sphincterotomy; stones and sludge were swept from the biliary tree. Abdominal pain has since improved. LFTs remain high but are downtrending. The necessity of cholecystectomy after choledocholithiasis was explained to the patient. He agreed to move forward with the procedure. Pre-operative Diagnosis: Choledocholithiasis Post-operative Diagnosis: Choledocholithiasis with chronic cholecystitis Surgeon(s): Surgeons and Role: * Jayleen Sandhu MD - Primary * Jose Alberto Bae MD - Resident - Assisting * Tere Peters MD - Resident - Assisting * Massiel Mae MD - Resident - Assisting Anesthesia: General endotracheal anesthesia Procedure Details Narciso Resendiz was brought to the Preinduction Area on 03/20/2024. After proper identification usingtwo separate identifiers, the risks and the benefits of the procedure were thoroughly explained. After he was given the opportunity to ask questions, and after those questions were answered, informedconsent was obtained. The patient was brought to the operating room and placed on the operating table in supine position. After the induction of anesthesia, his pressure points were appropriately padded and he was secured to the operating table using a safety strap. The patient's abdomen was prepped and draped in standard fashion. A time-out was then performed to again verify his identity, the procedure to be performed, and the site of the procedure. A 5 mm incision was made at Lane's point. Using a Visiport, the abdomen was entering while directly visualizing the layers of the abdominal wall as they were traversed. The abdomen was insufflated to 15 mmg Hg then inspected for trocar injury of which there was none. Again under direct visualization, 11m supraumbilical and 2 right flank 5 mm ports were placed. Attention was turned to the right upper quadrant. The omentum was gently freed from the gall bladder by blunt dissection. The gallbladder was noted to be significantly distended with signs of acute on chronic inflammation and gangrene. It was also markedly intrahepatic; hepatic steatosis was also noted. Atraumatic graspers were used to retract the gallbladder fundus superiorly. In attempting to grasp the gallbladder anteriorly for better retraction, we found it was encased in a very thick rind.A laparoscopic decompression needle was introduced into the field and used to hoover the fundus. Approximately 70 mL of thick bile were removed. On closer examination of the gallbladder, it was very difficult to discern a very dilated cystic duct from the gallbladder neck. With a combination of blunt dissection and hook electrocautery, the peritoneal reflection was meticulously dissected from the infundibulum. A vessel coursing between the gallbladder and the liver was noted in the lateral cystic plate. This vessel was taken with 2 clips proximally and 1 clip distally. A [place] dissector and hook cautery were used to dissect the cystic duct and the cystic artery. This was done in such a manner that the cystic duct and artery were seen to clearly enter the gallbladder without additional branches returning to the liver. A clip manager mining was used to place surgical clips across the cystic artery. Two clips were placed proximally and one distally. The artery was then transected between the clips. The cystic duct was markedly dilated. It was deemed too wide for safe clipping and was too indurated for an Endoloop. Once the distal 1/3 of the gallbladder was sufficiently mobilized from the cysticplate, a 12mm subxiphoid port was placed under direct visualization. A 30 mm gold EndoGIA stapler was used to transect the cystic duct close to the gallbladder. The staple line was inspected for bleeding and bile leaks; it was deemed hemostatic without bile staining. Hook electrocautery was then used to dissect the gallbladder free from gallbladder fossa. The clipsand staple line were inspected and seen to be intact. There was no evidence of bleeding or bile leakage from either the cystic duct or cystic artery stumps or from the gallbladder bed itself. The gall bladder was extracted through the umbilical port site using an Endocatch bag. The gallbladder was handed off the field and sent to Pathology for analysis. The gallbladder was opened on the back tableto identify stones and a single orifice exiting at the neck of gallblader at staple line. The umbilical port was replaced and the abdomen was re-inspected. A few stones had spilled from thegallbladder and were either retrieved with a grasper or removed with suction. The abdomen was irrigated with normal saline. All port sites were inspected and removed under direct visualization without evidence of bleeding. The 10 mm port was removed and the pneumoperitoneum was evacuated. The fascia was reapproximated with 2 figure of eight sutures with an 0-Vicryl on a UR-6 needle. All port sites were then closed with absorbable intracuticular suture. Dermabond was then applied. The patient was then woken, extubated, and transported to the Post Anesthesia Care Unit in satisfactory condition. Sponge and needle counts were correct on two occasions prior to the completion of the procedure. Disposition: PACU - hemodynamically stable. Findings: Gangrenous gallbladder with acute on chronic inflammation and thickened rind. Needle decompression of around 70 cc of bile at start of case. Mild stone and biliary spillage. Anterior and posterior cystic arteries taken with clips. Cystic duct too wide for safe clipping or Endoloop. Transected with 30 mm stapler. No sign of bile leak or bleeding at staple line at end of case. Drains: none Specimens: Gallbladder, sent to pathology for routine evaluation. Estimated Blood Loss: ml Total IV Fluids: See anesthesia record Massiel Mae MD, 03/20/2024 12:17 PM My signature attests that I was present for the mondragon or critical portion of this procedure. I was immediately available or had arranged immediate staff availability for all the non-critical or non-keyportions of the entire procedure. Jayleen Sandhu MD, 03/21/2024 11:18 AM documented in this encounter ED Notes * Jung Daniel RN - 03/17/2024 1:18 AM CDT Pt arrived for ERCP, [facility]. 119bg 20g r forearm. VSS. Denies pain * Denia Guerrero MD - 03/17/2024 1:16 AM CDT Images from the original note were not included. ED Provider Note Narciso Resendiz : 1970 Sex: male Patient Arrival Date and Time: 03/17/2024 1:15 AM MDM / ED Course Patient is a 54 y.o. male with PMHx of HTN who presented to the emergency department as a transfer from an outside hospital for an ERCP after being found to have symptomatic choledocholithiasis. Patient's symptoms have since resolved, no complaints today. Patient afebrile and overall well-appearingon exam with mild jaundice but no abdominal tenderness- low concern for ascending cholangitis at this time. Will plan for admission with repeat labs and GI consult in AM. Problems Addressed 1 acute or chronic illness or injury that poses a threat to life or bodily function Data considered External notes reviewed and summarized and Additional history obtained from EMS Workup at OSH: - US with cholelithiasis, CBD 7mm, sludge but no acute cholecystitis - Elevated LFTs mixed pattern - EKG sinus without e/o acute ischemia Risk of patient management Decision regarding surgery or procedure and Decision regarding hospitalization IMPRESSION 1. Choledocholithiasis Pertinent Physical Exam findings: BP 125/76 (Cuff Location: Left Arm) Pulse 56 Temp 36.4 ??C (97.5 ??F) (Tympanic) Resp 18 Ht1.905 m (6' 3) Wt 119.4 kg (263 lb 3.2 oz) SpO2 99% BMI 32.90 kg/m?? Physical Exam General: Awake, alert, NAD. Head: Normocephalic, atraumatic. Eyes: Conjugate gaze. Jaundiced sclera. ENT: Moist membranes. Cardiovascular: Regular rate and rhythm. Peripheral pulses present. No peripheral edema. Chest/Lungs: Normal effort, equal chest rise, normal breath sounds. Abdomen: Soft, non-distended, non-tender. MSK: Neck supple, no gross deformities Neurological: Alert and oriented, answering questions appropriately, moving all extremities spontaneously, face symmetric, normal speech. Skin: Warm and dry. No visible rash, lesions, or bruising. Mild jaundice HPI Patient presenting as a transfer from an outside hospital for an ERCP. Patient reports he had RUQ pain last week but it has been resolved for the past few days; he states it had worsened after eatingice cream. He started becoming jaundiced a few days ago, and drank a lot of water to help. He initially had some nausea and vomiting but none since. Has no complaints at this time. Denia Guerrero MD, 03/17/2024 1:16 AM Emergency Medicine Resident, PGY-2 Dictation Disclaimer: Some notes are completed with voice-recognition dictation software. Errors are generally corrected in real time. Please contact me via [facility] staff message if you note any errors requiring clarification. * Jonah Frias RN - 03/17/2024 12:54 AM CDT Patient transferring from [facility] via EMS with a stone in his bile duct, needing an ERCP. Patient presented to outside hospital after family was concerned about the patient appearing yellow. Patient c/o feeling bloated, having diarrhea, and abdominal pain with movement. Ultrasound was completed at outside hospital. BP 148/83, HR 56, RR 14, SpO2 98%. 20g PIV left AC, received 1L NS. Report taken from SANYA Alonso documented in this encounter Miscellaneous Notes * Provider Note - Laure Hobbs APRN, CNP - 03/21/2024 10:01 AM CDT SURGERY PROVIDER NOTE POD1 lap mick. Doing well post-operatively. VSS, tolerating diet, ambulating and passing flauts. BP 139/81 Pulse 73 Temp 36.7 ??C (98 ??F) (Tympanic) Resp 18 Ht 1.905 m (6' 3) Wt 119.4 kg (263 lb 3.2 oz) SpO2 96% BMI 32.90 kg/m?? Constitutional: General appearance: well developed, well nourished, no distress Cardiovascular: RRR, extremities WWP Respiratory: equal chest rise, NAD on RA Gastrointestinal/Abdomen: soft, non distended, tender to lap sites as expected. Bruising around umbilical incisions Genitourinary: Normal urine output Musculoskeletal: Both upper/lower extremities have normal joint range of motion and intact strength. Skin: normal skin color, texture, and turgor. No rashes or lesions. No s/s of infection noted to surgical site Neurological: alert and oriented x 4 Plan: -OK to discharge from surgery standpoint -No outpatient abx from surgery standoint -Ordered for you in [place] navigator: when should I be concerned, showering, lifting restriction -Follow up scheduled in Surgery clinic 04/[address] Sandhu -Cholecystectomy reference sheet attached to AVS -Per GI Repeat ERCP for stent removal in 6 weeks. Ordered 03/19 and routed to GI lab for scheduling -Return to work letter given to patient for one week off work then one week lifting restriction < 10lbs Laure Hobbs APRN, CNP, 03/21/2024 10:03 AM [facility]- Trauma/General Surgery Pager: via telemediq * Nursing Assessment - Na Lemus RN - 03/21/2024 9:00 AM CDT Nursing Assessment Head to Toe Head to Toe Assessment Shift Summary Shift Summary Neurologic/Cognitive Within Defined Limits HEENT Within Defined Limits Cardiac Within Defined Limits Respiratory Within defined limits Neurovascular Within Defined Limits Gastrointestinal Within Defined Limits Comments: No BM Genitourinary Within Defined Limits Musculoskeletal Within Defined Limits Comments: Ambulating independently in room. Integumentary Assessment Within Defined Limits except for: Skin Assessment Integrity - see Avatar LDA documentation Comments: 5 laproscopic sites - Dermabond in place. Patient Lines/Drains/Airways Status Active LDAs Name Placement date Placement time Site Days Wound 03/20/24 Incision Abdomen Anterior 03/20/24 0809 Abdomen 1 Wound 03/20/24 Abrasion Pretibial Left 03/20/24 1500 Pretibial less than 1 Psychosocial Within Defined Limits Psychosocial Assessment: Observed Patient Behaviors: Pleasant Family Behavior: not present * Utilization Management - Bárbara Martinez RN - 03/21/2024 8:04 AM CDT Per AEMT no longer meets IP criteria, documentation in chart indicating Anticipate DC home 03/21, no message sent to provider or CC. * Nursing Assessment - Brandon Quintero RN - 03/21/2024 2:45 AM CDT Nursing Assessment Head to Toe Head to Toe Assessment Shift Summary Shift Summary No acute events noted overnight. BP 139/73 (Cuff Location: Left Arm) Pulse 60 Temp 37.1 ??C (98.7 ??F) (Tympanic) Resp 18 Ht1.905 m (6' 3) Wt 119.4 kg (263 lb 3.2 oz) SpO2 97% BMI 32.90 kg/m?? Brandon Quintero RN, 03/21/2024 2:46 AM Neurologic/Cognitive Within Defined Limits HEENT Within Defined Limits Cardiac Within Defined Limits Respiratory Within defined limits Neurovascular Within Defined Limits Gastrointestinal Within Defined Limits Comments: No BM Genitourinary Within Defined Limits Musculoskeletal Within Defined Limits Comments: Ambulating independently in room. Integumentary Assessment Within Defined Limits except for: Skin Assessment Integrity - see Avatar LDA documentation Comments: 5 laproscopic sites - Dermabond in place. Patient Lines/Drains/Airways Status Active LDAs Name Placement date Placement time Site Days Peripheral IV 03/17/24 18 gauge;1 3/4 in length Anterior;Left Forearm 03/17/24 1155 -- 3 Wound 03/20/24 Incision Abdomen Anterior 03/20/24 0809 Abdomen less than 1 Wound 03/20/24 Abrasion Pretibial Left 03/20/24 1500 Pretibial less than 1 Psychosocial Within Defined Limits * Interval Note Provider - Zander Stallworth MD - 03/21/2024 1:09 AM CDT [facility] Post-op Check S: 54 y.o. male with symptomatic choledocholithiasis now S/P laparoscopic cholecystectomy. Denies nausea, vomiting, abdominal pain, fevers, chest pain, shortness of breath, diarrhea. Tolerating food.Is interested in taking medication to help with bowel movement in morning. Ambulating frequently. O: BP 139/73 (Cuff Location: Left Arm) Pulse 60 Temp 37.1 ??C (98.7 ??F) (Tympanic) Resp 18 Ht1.905 m (6' 3) Wt 119.4 kg (263 lb 3.2 oz) SpO2 97% BMI 32.90 kg/m?? General: A&O, NAD Heart: RRR Lungs: CTAB Abdomen: S, appropriately tender. Incisions healing well on abdomen. Extremities: WWP A/P: 54 y.o. male with symptomatic choledocholithiasis now S/P laparoscopic cholecystectomy. Doing well. -routine post-op cares. Zander Stallworth MD * Nursing Assessment - Virgil Tan RN - 03/20/2024 6:19 PM CDT Nursing Assessment Head to Toe Head to Toe Assessment Shift Summary No acute events noted since patient's return to room on unit (left for OR this AM). Patient appears VSS, A&O 4x, and denies pain upon return; patient did receive 1x dose of amlodipine out of scheduled d/t not receiving this AM, patient reported feeling a DORANTES which he stated is usually related to his BP (slight HTN noted on assessment), 1x dose given to promote comfort and regularity. See comment section below for further details regarding relevant systems, continue to monitor and assess per POC. Upon return to unit, a Four Eyes Skin Inspection was completed with Poornima MARIO. Skin injuries were present, and skin breakdown needing further assessment will be added to Avatar. Will implement interventions from Skin INJURY Bundle as appropriate. Neurologic/Cognitive Within Defined Limits HEENT Within Defined Limits Cardiac Within Defined Limits Respiratory Within defined limits Neurovascular Within Defined Limits Gastrointestinal Within Defined Limits Comments: No bowel movement noted over shift; no recorded BM this hospitalization; tolerating PO intake well, diet advanced to regular Genitourinary Within Defined Limits Comments: Voiding via toilet, characterstics and volume appear adequate Musculoskeletal Within Defined Limits Comments: Ambulating independently in room; patient demonstrates steady gait and good awareness of limits Integumentary Assessment Within Defined Limits except for: Skin Assessment Integrity - see Avatar LDA documentation Integrity Location - 5x lap sites, dermabond, pink, KIESHA, unremarkable Comments: Discussed discomfort that can be present after laproscopic procedure; mepilex lite placedon pretibial abrasion, patient states that they had an appointment to have it looked at by their primary care provider, no concerns related at this time Patient Lines/Drains/Airways Status Active LDAs Name Placement date Placement time Site Days Peripheral IV 03/17/24 18 gauge;1 3/4 in length Anterior;Left Forearm 03/17/24 1155 -- 3 Wound 03/20/24 Incision Abdomen Anterior 03/20/24 0809 Abdomen less than 1 Psychosocial Within Defined Limits Comments: Expectant to discharge tomorrow Virgil Tan, RN, 03/20/2024 6:30 PM * Provider Note - Laure Hobbs, GAME ENGINEER, FOUNDATION ENGINEER - 03/20/2024 3:09 PM CDT SURGERY PROVIDER NOTE Discharge planning: POD0 Lap mick -Ordered for you in [place] navigator: when should I be concerned, showering, lifting restriction -Follow up scheduled in Surgery clinic 04/[address] Sandhu -Cholecystectomy reference sheet attached to AVS Laure Hobbs APRN, CNP, 03/20/2024 3:10 PM FOUNDATION ENGINEER- Trauma/General Surgery Pager: via telemed[place]icket[place] * Op Note Immediate - Massiel Mae MD - 03/20/2024 8:09 AM CDT [facility] Immediate Post Operative Note Note written: Day of Surgery Patient Name: Narciso Resendiz ( ) OR Date: 03/20/2024 0730 Procedure(s) and Anesthesia Type: * LAP CHOLECYSTECTOMY - General Pre-op History and Physical reviewed. Pre-Op Diagnosis Codes: * Choledocholithiasis [K80.50] Post-Op Diagnosis Codes: * Choledocholithiasis [K80.50] Surgeons and Role: * Jayleen Sandhu MD - Primary * Jose Alberto Bae MD - Resident - Assisting * Tere Peters MD - Resident - Assisting * Massiel Mae MD - Resident - Assisting Antibiotics Administered metroNIDAZOLE (FLAGYL) IVPB 500 mg Last given: 0900 Frequency: Q12H * No tourniquets in log * * No LDAs found * Implant Name Type Inv. Item Serial No. Hand Counter Lot No. LRB No. Used Action ENDOCLIP 5MM [id number] Staple ENDOCLIP 5MM [id number] COVIDIEN LP [id number] N/A 1 Implanted RELOAD LOAD ENDO TONE 30 ARTICULATING VASCULAR 2.0 TRI-STAPLE Staple RELOAD LOAD ENDO TONE 30 ARTICULATING VASCULAR 2.0 TRI-STAPLE COVIDIEN LP [id number] N/A 1 Implanted Intraoperative Findings: Gangrenous gallbladder with acute on chronic inflammation and thickened rind. Needle decompression of around 70 cc of bile at start of case. Mild stone and biliary spillage. Anterior and posterior cystic arteries taken with clips. Cystic duct too wide for safe clipping or Endoloop. Transected with 30 mm stapler. No sign of bile leak or bleeding at staple line at end of case. Infection Present at Time of Surgery: Surgical site contents consistent with active infection EBL: 30 ml ID Type Source Tests Collected by Time Destination A : Gall Bladder AP Specimen Abdomen SURGICAL PATHOLOGY Massiel Mae MD 03/20/2024 1131 Complications: None Massiel Mae MD 03/20/2024 12:13 * Nursing Assessment - Courtney Bledsoe RN - 03/20/2024 12:30 AM CDT Nursing Assessment Head to Toe Head to Toe Assessment Shift Summary Shift Summary Neurologic/Cognitive Within Defined Limits HEENT Within Defined Limits Cardiac Within Defined Limits Respiratory Within defined limits Neurovascular Within Defined Limits Gastrointestinal Assessment Within Defined Limits except for: Abdominal appearance: Distended and rounded Genitourinary Within Defined Limits Musculoskeletal Assessment Within Defined Limits except for: Musculoskeletal Assessment: General Mobility: Generalized weakness Integumentary Within Defined Limits Patient Lines/Drains/Airways Status Active LDAs Name Placement date Placement time Site Days Peripheral IV 03/17/24 18 gauge;1 3/4 in length Anterior;Left Forearm 03/17/24 1155 -- 2 Psychosocial Assessment Within Defined Limits except for: Psychosocial Assessment: Family Behavior: not present Courtney Bledsoe RN, 03/20/2024 2:08 AM * Nursing Assessment - Delia Jensen RN - 03/19/2024 5:37 PM CDT Nursing Assessment Head to Toe Head to Toe Assessment Shift Summary Pt a&o x4 with VSS on RA. Able to make needs known, use call light, and follow commands. Continent of b&b, independent in the room. Denies pain, nausea, and DORANTES. Taking medications whole, NPO at midnight for procedure tomorrow. Pt resting comfortably in bed Neurologic/Cognitive Within Defined Limits HEENT Within Defined Limits Cardiac Within Defined Limits Respiratory Within defined limits Neurovascular Within Defined Limits Gastrointestinal Assessment Within Defined Limits except for: Abdominal appearance: Distended Genitourinary Within Defined Limits Musculoskeletal Assessment Within Defined Limits except for: Musculoskeletal Assessment: General Mobility: Generalized weakness Integumentary Within Defined Limits Patient Lines/Drains/Airways Status Active LDAs Name Placement date Placement time Site Days Peripheral IV 03/17/24 18 gauge;1 3/4 in length Anterior;Left Forearm 03/17/24 1155 -- 2 Psychosocial Within Defined Limits * Nursing Assessment - Katy Del Cid RN - 03/19/2024 10:14 AM CDT Nursing Assessment Head to Toe Head to Toe Assessment Shift Summary Pt alert and oriented x 4. Denies pain or nausea. Eager to get home. OR postponed until 03/20. Pt ate well. Understands plan to be NPO after midnight. Up independently in room and hallway. Sleeping between cares. Will cont w/ POC and provide interventions as needed. Neurologic/Cognitive Within Defined Limits HEENT Within Defined Limits Cardiac Within Defined Limits Respiratory Within defined limits Neurovascular Within Defined Limits Gastrointestinal Assessment Within Defined Limits except for: Abdominal appearance: Distended Bowel Sounds hypoactive - all quadrants Genitourinary Within Defined Limits Musculoskeletal Within Defined Limits Integumentary Within Defined Limits Patient Lines/Drains/Airways Status Active LDAs Name Placement date Placement time Site Days Peripheral IV 03/17/24 18 gauge;1 3/4 in length Anterior;Left Forearm 03/17/24 1155 -- 1 Psychosocial Within Defined Limits * Cross Cover - Sunil Higuera PA-C - 03/19/2024 3:09 AM CDT Patient requests restart of maintenance IVF's overnight given NPO status. -NS @ 75ml/H ordered. Sunil Higuera PA-C, 03/19/2024 3:10 AM * Nursing Assessment - Lilli Alexandre RN - 03/19/2024 1:02 AM CDT Nursing Assessment Head to Toe Head to Toe Assessment Shift Summary [id number] Pt is a/o X4 and can make needs known. Pt denies pain, SOB, chest pain, dizziness, headache, nausea, vomiting, and diarrhea. Pt is independent in room and is voiding without issues. Pt is on RA, VSS,and is on remote tele. Pt c/o of sore throat after surgical procedure to remove gallstone and have stent placement for gallstones. Pt is tolerating clear liquid diet and takes meds whole. CMS and neuro's intact. Pt is waiting for more surgery to gall bladder and will be possibly NPO at midnight formore surgery tomorrow. Will continue to monitor. [id number] Pt remains a/o X4 and CMS and neuro's remain intact and unchanged. Pt had no c/o of pain, SOB, dizziness, vomiting, or nausea during the shift. Pt ambulates in the ruiz and room independently and remote tele has been d/c'd. Pt is NPO after midnight for surgical procedure in the AM to remove gall bladder. Pt is voiding without issue. G bath and surgical pre-op checklist to be completed in the [facility] before patient is transferred to surgery. Pt appeared to sleep between cares. Will continue tomonitor. Neurologic/Cognitive Within Defined Limits HEENT Within Defined Limits Cardiac Within Defined Limits Comments: Remote tele is d/c'd Respiratory Within defined limits Neurovascular Within Defined Limits Gastrointestinal Assessment Within Defined Limits except for: Abdominal appearance: Distended Bowel Sounds hypoactive - all quadrants Genitourinary Within Defined Limits Musculoskeletal Within Defined Limits Integumentary Assessment Within Defined Limits except for: Skin Assessment Integrity - see Avatar LDA documentation Patient Lines/Drains/Airways Status Active LDAs Name Placement date Placement time Site Days Peripheral IV 03/17/24 18 gauge;1 3/4 in length Anterior;Left Forearm 03/17/24 1155 -- 1 Psychosocial Within Defined Limits * Nursing Assessment - Lilli Alexandre RN - 03/18/2024 8:38 PM CDT Nursing Assessment Head to Toe Head to Toe Assessment Shift Summary [id number] Pt is a/o X4 and can make needs known. Pt denies pain, SOB, chest pain, dizziness, headache, nausea, vomiting, and diarrhea. Pt is independent in room and is voiding without issues. Pt is on RA, VSS,and is on remote tele. Pt c/o of sore throat after surgical procedure to remove gallstone and have stent placement for gallstones. Pt is tolerating clear liquid diet and takes meds whole. CMS and neuro's intact. Pt is waiting for more surgery to gall bladder and will be possibly NPO at midnight formore surgery tomorrow. Will continue to monitor. 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 Respiratory Within defined limits Neurovascular Within Defined Limits Gastrointestinal Assessment Within Defined Limits except for: Abdominal appearance: Distended Bowel Sounds hypoactive - all quadrants Genitourinary Within Defined Limits Musculoskeletal Within Defined Limits Integumentary Assessment Within Defined Limits except for: Skin Assessment Integrity - see Avatar LDA documentation Patient Lines/Drains/Airways Status Active LDAs Name Placement date Placement time Site Days Peripheral IV 03/17/24 18 gauge;1 3/4 in length Anterior;Left Forearm 03/17/24 1155 -- 1 Psychosocial Within Defined Limits * Nursing Assessment - Osmany Jorge RN - 03/18/2024 6:03 PM CDT Nursing Assessment Head to Toe Head to Toe Assessment Shift Summary Pt is A/O x 4. VSS on RA. Denies pain/discomfort and N/V. Tolerating clear liquid diet. C/O mild sore throat after the procedure, but it's improving. IND in room/hallway. Voiding painlessly and passing gas. Continue POC. Neurologic/Cognitive Within Defined Limits HEENT Within Defined Limits Cardiac Within Defined Limits Respiratory Within defined limits Neurovascular Within Defined Limits Gastrointestinal Within Defined Limits Genitourinary Within Defined Limits Musculoskeletal Assessment Within Defined Limits except for: Musculoskeletal Assessment: General Mobility: Generalized weakness Integumentary Within Defined Limits Patient Lines/Drains/Airways Status Active LDAs Name Placement date Placement time Site Days Peripheral IV 03/17/24 18 gauge;1 3/4 in length Anterior;Left Forearm 03/17/24 1155 -- 1 Psychosocial Within Defined Limits * Nursing Assessment - Klarissa Cordoba RN - 03/18/2024 8:00 AM CDT Nursing Assessment Head to Toe Head to Toe Assessment Shift Summary Patient is alert and oriented x4. VSS. On RA. Neuro intact. Able to make needs known. Denies pain and n/v. Independent in the room and able to ambulates the bathroom. NPO for MRI this am No acute change this shift. Continue POC. 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 Respiratory Within defined limits Neurovascular Within Defined Limits Gastrointestinal Within Defined Limits Genitourinary Within Defined Limits Musculoskeletal Musculoskeletal Integumentary Assessment Within Defined Limits except for: Skin Assessment Color/Characteristics - jaundiced Integrity - see Avatar LDA documentation Integrity Location - eyes Patient Lines/Drains/Airways Status Active LDAs Name Placement date Placement time Site Days Peripheral IV 03/17/24 20 gauge Left Antecubital 03/17/24 0125 -- 1 Peripheral IV 03/17/24 18 gauge;1 3/4 in length Anterior;Left Forearm 03/17/24 1155 -- less than 1 Psychosocial Within Defined Limits * Nursing Assessment - Edie Andrews RN - 03/18/2024 7:00 AM CDT Nursing Assessment Head to Toe Head to Toe Assessment Shift Summary A/Ox4, VSS on RA. Pt denies pain and SOB. Continent of bowel and bladder. Up independently. NPO forMRI. Pt able to let needs known. Call light within reach. Resting with respirations even and unlabored. No acute changes overnight. Plan of care ongoing. 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 Respiratory Within defined limits Neurovascular Within Defined Limits Gastrointestinal Within Defined Limits Genitourinary Within Defined Limits Musculoskeletal Within Defined Limits Integumentary Assessment Within Defined Limits except for: Skin Assessment Integrity - see Avatar LDA documentation Patient Lines/Drains/Airways Status Active LDAs Name Placement date Placement time Site Days Peripheral IV 03/17/24 20 gauge Left Antecubital 03/17/24 0125 -- less than 1 Peripheral IV 03/17/24 18 gauge;1 3/4 in length Anterior;Left Forearm 03/17/24 1155 -- less than 1 Psychosocial Psychosocial * Nursing Assessment - Trenton Jacome RN - 03/17/2024 10:49 PM CDT Nursing Assessment Head to Toe Head to Toe Assessment Shift Summary Shift Summary Patient is alert and oriented x4. VSS. On RA. Neuro intact. Able to make needs known. Denies pain and n/v. Independent in the room and able to ambulates the bathroom. Oral fluids promoted. No acute change this shift. NPO at midnight. 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 Respiratory Within defined limits Neurovascular Within Defined Limits Gastrointestinal Within Defined Limits Genitourinary Within Defined Limits Musculoskeletal Musculoskeletal Integumentary Assessment Within Defined Limits except for: Skin Assessment Color/Characteristics - jaundiced Integrity - see Avatar LDA documentation Integrity Location - eyes Patient Lines/Drains/Airways Status Active LDAs Name Placement date Placement time Site Days Peripheral IV 03/17/24 20 gauge Left Antecubital 03/17/24 0125 -- less than 1 Peripheral IV 03/17/24 18 gauge;1 3/4 in length Anterior;Left Forearm 03/17/24 1155 -- less than 1 Psychosocial Within Defined Limits * Cross Cover - Tony Kent MD - 03/17/2024 8:52 PM CDT Paged that the previously ordered IVF this AM was not given (while patient was npo). Patient now drinking well. NPO at ks for MRCP. Can dc IVF and encourage PO intake. Tony Kent MD, 03/17/2024 8:52 PM * Nursing Assessment - Klarissa Cordoba, RN - 03/17/2024 9:00 AM CDT Nursing Assessment Head to Toe Head to Toe Assessment Shift Summary Pt is A/O x4. Independent in the room, able to make needs known. Potassium was 2.9 in process of replacing on 2 of 4 bags got behind due to IV infiltrated after first bag infused had to replace IV access. Remote telemetry ordered due to low K+. and daughter visited. Waiting for MRCP continues NPO. Continue POC. Neurologic/Cognitive Within Defined Limits HEENT Within Defined Limits Cardiac Within Defined Limits Respiratory Within defined limits Neurovascular Within Defined Limits Gastrointestinal Within Defined Limits Genitourinary Within Defined Limits Musculoskeletal Within Defined Limits Integumentary Assessment Within Defined Limits except for: Skin Assessment Integrity - see Avatar LDA documentation Patient Lines/Drains/Airways Status Active LDAs Name Placement date Placement time Site Days Peripheral IV 03/17/24 20 gauge Left Antecubital 03/17/24 0125 -- less than 1 Peripheral IV 03/17/24 18 gauge;1 3/4 in length Anterior;Left Forearm 03/17/24 1155 -- less than 1 Psychosocial Within Defined Limits * ED Faculty Note - Sang Pastrana MD - 03/17/2024 2:23 AM CDT Images from the original note were not included. ED Faculty Attestation and Note Narciso Resendiz is a 54 y.o. male who presented to the ED with Abdominal Pain and Gallbladder Problems FACULTY ATTESTATION ISang MD, personally saw the patient, performed critical or mondragon portions of the service, and discussed the care with the resident MDM / ED Course Patient presented to the emergency department with abdominal pain. Pt transferred from [facility] with stone in his bile duct needing an ERCP. Plan admission and plan surgery and GI consult. Problems Addressed 1 acute or chronic illness or injury that poses a threat to life or bodily function Data considered External notes reviewed and summarized, Tests Ordered, Additional tests considered but not ordered, and Independent interpretation of studies Risk of patient management Decision regarding hospitalization IMPRESSION 1. Choledocholithiasis Vitals: BP 130/70 (Cuff Location: Right Arm, Patient Position: Lying Down) Pulse 62 Temp 36.8 ??C (98.2 ??F) (Oral) Resp 15 SpO2 96% GENERAL: Alert, NAD, non-toxic appearing. HEENT: Normocephalic, atraumatic. PERRLA, EOMI. MMM with no oropharyngeal lesions. NECK: Supple. FROM. CARDIOVASCULAR: RRR. Peripheral pulses intact and symmetric. CHEST: symmetric chest wall expansion. Breathing comfortably. ABDOMEN: Soft. Non-distended. Non-tender. BACK: No tenderness. MSK: Extremities without deformities, edema. NEUROLOGIC: Awake and alert, moving all extremities equally, symmetric facies. SKIN: warm and well perfused. Scribed for Sang Pastrana MD by Charlotte Ramos Scribe, 03/17/2024 2:33 AM IVictoriano Gregg A, MD, have reviewed the initial documentation provided by the scribe and affirm that it is an accurate restatement of my dictated record of services. Signed: Sang Pastrana MD, 02:23 03/17/2024 Sang Pastrana MD documented in this encounter Plan of Treatment Upcoming Encounters Date Type Department Care Team (Late st Contact Info) Description 04/08/2024 2:00 PM CDT [facility] [address] [place] [id number] Jayleen Sandhu MD [address] [place] [id number] Scheduled Discharge Disposition: Discharged to home or self care (routine discharge) Scheduled Procedures Name Priority Associated Diagnoses Date/Ti nd GI ERCP DIAGNOSTIC Semi-Elective (< 2 months) Encounter for removal of biliary stent documented as of this encounter Procedures Procedure Name Priority Date/Time Associated Diagnosis Comments PC TISSUE EXAM BY PATHOLOGIST STAT 03/20/2024 11:31 AM CDT Choledocholithia sis LAP CHOLECYSTECTOMY Semi-Urgent (< 2 wks) 03/20/2024 7:08 AM CDT Choledocholithia sis PANEL BASIC METABOLIC (BMP) Routine 03/20/2024 4:36 AM CDT LIPASE Routine 03/20/2024 4:36 AM CDT PANEL HEPATIC FUNCTION Routine 4:36 AM CDT PC LAB CBC/PLT Routine 03/20/2024 4:36 AM CDT PHOSPHORUS Routine 03/19/2024 6:35 AM CDT PANEL BASIC METABOLIC (BMP) Routine 03/19/2024 6:35 AM CDT MAGNESIUM Routine 03/19/2024 6:35 AM CDT LIPASE Timed 03/19/2024 6:35 AM CDT PANEL HEPATIC FUNCTION Routine 6:35 AM CDT PC LAB CBC/PLT Routine 03/19/2024 6:35 AM CDT POTASSIUM Routine 03/19/2024 1:51 AM CDT XR ERCP COMPLETE Routine 03/18/2024 4:22 PM CDT GI ERCP WITH STENT Urgent [...] WITHOUT SECRETIN Routine 03/18/2024 11:33 AM CDT PC HEPATITIS C Routine 03/18/2024 7:17 AM CDT PHOSPHORUS Routine 03/18/2024 7:17 AM CDT PANEL BASIC METABOLIC (BMP) Routine 03/18/2024 7:17 AM CDT MAGNESIUM Routine 03/18/2024 7:17 AM CDT PANEL HEPATIC FUNCTION Routine 4 7:17 AM CDT PC LAB CBC/PLT Routine 03/18/2024 7:17 AM CDT POTASSIUM Timed 03/17/2024 8:56 PM CDT POTASSIUM Timed 03/17/2024 1:58 PM CDT PHOSPHORUS Routine 03/17/2024 5:40 AM CDT PANEL BASIC METABOLIC (BMP) Timed 03/17/2024 5:40 AM CDT MAGNESIUM Routine 03/17/2024 5:40 AM CDT LIPASE Routine 03/17/2024 5:40 AM CDT PANEL HEPATIC FUNCTION Timed 4 5:40 AM CDT HEPATITIS B SURFACE ANTIGEN Routine 03/17/2024 5:40 AM CDT HEPATITIS B SURFACE ANTIBODY Routine 03/17/2024 5:40 AM CDT PC LAB CBC/PLT Timed 03/17/2024 5:40 AM CDT documented in this encounter Results * SURGICAL PATHOLOGY (03/20/2024 11:31 AM CDT) SURG PATH FINAL ?Surgical Pathology Report Collection Date: ?03/20/2024 11:31 CDT ?Ordering Physician: ? JAYLEEN SANDHU Received Date: ?03/20/2024 13:27 CDT ?Accession Number: ? [id number] ? Surgical Pathology Final Report Specimen Type: [...] adventitial surface grossly consistent with surgical artifact. Structural Engineer sections are submitted in cassette A1 to include cystic duct margin en face and gallbladder wall. (ESB) ESB/ESB 03.20.2024 13:59 Microscopic Description: Microscopic examination performed and findings are reflected in the final diagnosis. I personally examined the relevant preparations and rendered and confirmed the diagnosis. ? Signed - Bear Rocha M.D. Attending Pathologist. ESB/ESB 03.20.2024 13:59 [facility] AP Specimen ABDOMEN / Unknown 03/20/2024 11:31 AM CDT Comment:OR: Routine gross an d microscopic examination Tissue: Gall bladder Site: Abdomen Additional clinical information: Jayleen Sandhu MD LAB PATHOLOGY Performing Organization Address [facility] de Phone Number [facility] [place] [phone] * LIPASE (03/20/2024 4:36 AM CDT) Pathologist [facility] Lipase 27 13 - 60 IU/L [facility] Blood 03/20/2024 4:36 AM CDT 03/20/2024 5:27 AM CDT Carlos Chen MD LABORATORY Performing Organization Address [facility] de Phone Number [facility] [address] [phone] * (ABNORMAL) PANEL BASIC METABOLIC (BMP) (03/20/2024 4:36 AM CDT) Pathologist [facility] Sodium 133(L) 135 - 148 mmol/L [facility] Potassium 3.4(L) 3.5 - 5.3 mmol/L [facility] Chloride 99 92 - 108 mmol/L [facility] CO2 21(L) 22 - 30 mmol/L [facility] AnGap 13 8 - 16 mmol/L [facility] Glucose 93 70 - 100 mg/dL [facility] BUN 15 6 - 20 mg/dL [facility] Creatinine 0.81 0.70 - 1.25 mg/dL [facility] Calcium 8.3(L) 8.6 - 10.0 mg/dL [facility] eGFR (2020 CKD-EPI) 104 >=60 ml/min/1.7 3m2 [facility] Comment: The estimated glomerular filtration rate (eGFR) was calculated using the CKD-EPI 2020 creatinine equation, which does not include race as a factor. This equation is validated in individuals 18 years of age and older, and eGFR is normalized to a body surface area of 1.73m^2. Blood 03/20/2024 4:36 AM CDT 03/20/2024 5:27 AM CDT Carlos Chen MD LABORATORY Performing Organization Address [facility] de Phone Number [facility] [address] [address] * (ABNORMAL) CBC WITH PLATELET (03/20/2024 4:36 AM CDT) WBC 6.80 4.00 - 10.00 k/cmm [facility] RBC 4.30(L) 4.60 - 6.00 m/cmm [facility] Hgb 13.4 13.1 - 17.5 g/dL [facility] Hematocrit 39.9(L) 40.0 - 51.0 % [facility] MCV 92.8 80.0 - 100.0 fL [facility] MCH 31.2 25.0 - 32.0 pg [facility] MCHC 33.6 31.0 - 36.0 g/dL [facility] RDW 13.2 11.5 - 14.5 % [facility] Plt 271 150 - 400 k/cmm [facility] MPV 10.1 6.5 - 12.5 fL [facility] Blood 03/20/2024 4:36 AM CDT 03/20/2024 5:28 AM CDT Carlos Chen MD LABORATORY Performing Organization Address [facility] de Phone Number [facility] [address] [address] * (ABNORMAL) PANEL HEPATIC FUNCTION (03/20/2024 4:36 AM CDT) Total Protein 6.5 6.4 - 8.3 g/dL [facility] Albumin 3.2(L) 3.8 - 5.1 g/dL [facility] Bili Total 3.9(H) <=1.2 mg/dL [facility] Bili Direct 2.3(H) <=0.3 mg/dL [facility] Alk Phos 129 40 - 129 IU/L [facility] Comment:No reference range e stablished for patients <18 years old. ALT (SGPT) 126(H) <=41 IU/L [facility] AST(SGOT) 50(H) 5 - 40 IU/L [facility] Blood 03/20/2024 4:36 AM CDT 03/20/2024 5:27 AM CDT Ra Delgado PA-C LABORATORY Performing Organization Address [facility] Co de Phone Number [facility] [place] [phone] * LIPASE (03/19/2024 6:35 AM CDT) Lipase 25 13 - 60 IU/L [facility] Blood 03/19/2024 6:35 AM CDT 03/19/2024 7:35 AM CDT Carlos Chen MD LABORATORY Performing Organization Address [facility] Co de Phone Number [facility] [place] [phone] * CBC WITH PLATELET (03/19/2024 6:35 AM CDT) WBC 9.43 4.00 - 10.00 k/cmm [facility] RBC 4.61 4.60 - 6.00 m/cmm [facility] Hgb 14.3 13.1 - 17.5 g/dL [facility] Hematocrit 42.6 40.0 - 51.0 % [facility] MCV 92.4 80.0 - 100.0 fL [facility] MCH 31.0 25.0 - 32.0 pg [facility] MCHC 33.6 31.0 - 36.0 g/dL [facility] RDW 13.2 11.5 - 14.5 % [facility] Plt 296 150 - 400 k/cmm [facility] MPV 10.2 6.5 - 12.5 fL [facility] Blood 03/19/2024 6:35 AM CDT 03/19/2024 7:35 AM CDT Ra Delgado PA-C LABORATORY Performing Organization Address [facility]/ZIP Co de Phone Number [facility] [address] [address] * (ABNORMAL) PANEL HEPATIC FUNCTION (03/19/2024 6:35 AM CDT) Total Protein 7.2 6.4 - 8.3 g/dL [facility] Albumin 3.5(L) 3.8 - 5.1 g/dL [facility] Bili Total 5.4(H) <=1.2 mg/dL [facility] Bili Direct 3.5(H) <=0.3 mg/dL [facility] Alk Phos 164(H) 40 - 129 IU/L [facility] Comment:No reference range e stablished for patients <18 years old. ALT (SGPT) 177(H) <=41 IU/L [facility] AST(SGOT) 72(H) 5 - 40 IU/L [facility] Blood 03/19/2024 6:35 AM CDT 03/19/2024 7:35 AM CDT Ra Delgado PA-C LABORATORY Performing Organization Address [facility] Co de Phone Number [facility] [address] [address] * PHOSPHORUS (03/19/2024 6:35 AM CDT) Phosphorus 2.8 2.5 - 4.5 mg/dL [facility] Blood 03/19/2024 6:35 AM CDT 03/19/2024 7:35 AM CDT Ra Delgado PA-C LABORATORY [facility] [address] [address] * MAGNESIUM (03/19/2024 6:35 AM CDT) Magnesium 2.2 1.6 - 2.6 mg/dL [facility] Blood 03/19/2024 6:35 AM CDT 03/19/2024 7:35 AM CDT Ra Delgado PA-C LABORATORY [facility] [address] [address] * (ABNORMAL) PANEL BASIC METABOLIC (BMP) (03/19/2024 6:35 AM CDT) Sodium 133(L) 135 - 148 mmol/L [facility] Potassium 3.6 3.5 - 5.3 mmol/L [facility] Chloride 96 92 - 108 mmol/L [facility] CO2 25 22 - 30 mmol/L [facility] Glucose 106(H) 70 - 100 mg/dL [facility] BUN 14 6 - 20 mg/dL [facility] Creatinine 0.85 0.70 - 1.25 mg/dL [facility] Calcium 8.6 8.6 - 10.0 mg/dL [facility] AnGap 12 8 - 16 mmol/L [facility] eGFR (2020 CKD-EPI) 103 >=60 ml/min/1.7 3m2 [facility] Comment: The estimated glomerular filtration rate (eGFR) was calculated using the CKD-EPI 2020 creatinine equation, which does not include race as a factor. This equation is validated in individuals 18 years of age and older, and eGFR is normalized to a body surface area of 1.73m^2. Blood 03/19/2024 6:35 AM CDT 03/19/2024 7:35 AM CDT Ra Delgado PA-C LABORATORY [facility] [address] [address] * POTASSIUM (03/19/2024 1:51 AM CDT) Potassium 4.2 3.5 - 5.3 mmol/L [facility] Blood 03/19/2024 1:51 AM CDT 03/19/2024 2:02 AM CDT Carlos Chen MD LABORATORY [facility] [address] [address] * XR ERCP COMPLETE (03/18/2024 4:22 PM [...] Radiologist: Alen Lazcano Reading Resident: Fede Marroquin 03/19/2024 11:42 AM CDT Exam: ERCP Indication:Stone [...] report for details. Procedure Note Alen Lazcano, DO - 03/19/2024 Exam: ERCP Indication:Stone in ampulla. [...] Marroquin Alexi Taylor MD RAD FLUORO * ERCP (03/18/2024 2:11 PM CDT) 03/18/2024 2:11 PM CDT Narrative [facility] - 03/18/2024 4:50 PM CDT Gastroenterology [...] Taylor MD, Siobhan Gilman RN, Basilia Zafar, Single Wire Saw Operator (Single Wire Saw Operator) Referring MD: ?Carlos Chen (Referring MD) Medicines: ? General Anesthesia, Indomethacin 100 mg [place] Complications: ? No immediate complications. Estimated blood [...] be ASGE Complexity Level 2. Findings: The plastic tile layer film was normal. The esophagus was successfully [...] performed the entire procedure. Alexi Taylor MD, [id number] 03/18/2024 4:20:13 PM Number of Addenda: 0 Note Initiated On: 03/18/2024 2:11 PM Clarissa Gutierrez PA-C GI LAB [facility] * MR MRCP WITHOUT CONTRAST (03/18/2024 [...] THRIVE. 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 3-D reconstructions were created by the electronics engineering technologist ont MRI scanner and reviewed by the radiologist. [facility] Findings: Liver: Normal signal intensity. No focal [...] Ra Delgado PA-C RAD MR BODY * HEPATITIS C ANTIBODY WITH CONDITIONAL PCR (03/18/2024 7:17 AM CDT) Pathologist [facility] Hep C Ruth Nonreactive Nonreactive [facility] Comment:Performance characte ristics have not been established with this test on patients less than 10 years of age. Blood 03/18/2024 7:17 AM CDT 03/18/2024 7:57 AM CDT Ra Delgado PA-C LABORATORY Performing Organization Address [facility] Co de Phone Number [facility] [address] [address] * (ABNORMAL) PANEL HEPATIC FUNCTION (03/18/2024 7:17 AM CDT) Pathologist [facility] Total Protein 7.2 6.4 - 8.3 g/dL [facility] Albumin 3.5(L) 3.8 - 5.1 g/dL [facility] Bili Total 10.6(H) <=1.2 mg/dL [facility] Bili Direct 8.5(H) <=0.3 mg/dL [facility] Alk Phos 170(H) 40 - 129 IU/L [facility] Comment:No reference range e stablished for patients <18 years old. ALT (SGPT) 235(H) <=41 IU/L [facility] AST(SGOT) 145(H) 5 - 40 IU/L [facility] Blood 03/18/2024 7:17 AM CDT 03/18/2024 7:58 AM CDT Ra Delgado PA-C LABORATORY Performing Organization Address [facility] Co de Phone Number [facility] [address] [address] * CBC WITH PLATELET (03/18/2024 7:17 AM CDT) Pathologist [facility] WBC 8.42 4.00 - 10.00 k/cmm [facility] RBC 4.79 4.60 - 6.00 m/cmm [facility] Hgb 15.3 13.1 - 17.5 g/dL [facility] Hematocrit 44.4 40.0 - 51.0 % [facility] MCV 92.7 80.0 - 100.0 fL [facility] MCH 31.9 25.0 - 32.0 pg [facility] MCHC 34.5 31.0 - 36.0 g/dL [facility] RDW 13.0 11.5 - 14.5 % [facility] Plt 303 150 - 400 k/cmm [facility] MPV 9.9 6.5 - 12.5 fL [facility] Blood 03/18/2024 7:17 AM CDT 03/18/2024 7:57 AM CDT Ra Delgado PA-C LABORATORY Performing Organization Address [facility] Co de Phone Number [address] [phone] * (ABNORMAL) PHOSPHORUS (03/18/2024 7:17 AM CDT) Phosphorus 2.0(L) 2.5 - 4.5 mg/dL [facility] Blood 03/18/2024 7:17 AM CDT 03/18/2024 7:58 AM CDT Ra Delgado PA-C LABORATORY Performing Organization Address [facility] Co de Phone Number [address] [address] * MAGNESIUM (03/18/2024 7:17 AM CDT) Magnesium 2.2 1.6 - 2.6 mg/dL [facility] Blood 03/18/2024 7:17 AM CDT 03/18/2024 7:58 AM CDT Ra Delgado PA-C LABORATORY Performing Organization Address [facility]/ZIP Co de Phone Number [facility] [address] [address] * (ABNORMAL) PANEL BASIC METABOLIC (BMP) (03/18/2024 7:17 AM CDT) Sodium 131(L) 135 - 148 mmol/L [facility] Potassium 3.4(L) 3.5 - 5.3 mmol/L [facility] Chloride 94 92 - 108 mmol/L [facility] CO2 26 22 - 30 mmol/L [facility] Glucose 102(H) 70 - 100 mg/dL [facility] BUN 11 6 - 20 mg/dL [facility] Creatinine 0.73 0.70 - 1.25 mg/dL [facility] Calcium 8.7 8.6 - 10.0 mg/dL [facility] AnGap 11 8 - 16 mmol/L [facility] eGFR (2020 CKD-EPI) 107 >=60 ml/min/1.7 3m2 [facility] Comment: The estimated glomerular filtration rate (eGFR) was calculated using the CKD-EPI 2020 creatinine equation, which does not include race as a factor. This equation is validated in individuals 18 years of age and older, and eGFR is normalized to a body surface area of 1.73m^2. Blood 03/18/2024 7:17 AM CDT 03/18/2024 7:58 AM CDT Ra Delgado PA-C LABORATORY [facility] [address] [address] * POTASSIUM (03/17/2024 8:56 PM CDT) Potassium 3.7 3.5 - 5.3 mmol/L [facility] Blood 03/17/2024 8:56 PM CDT 03/17/2024 9:17 PM CDT Ra Delgado PA-C LABORATORY [facility] [address] [address] * (ABNORMAL) POTASSIUM (03/17/2024 1:58 PM CDT) Potassium 3.0(AA) 3.5 - 5.3 mmol/L [facility] Comment:Critical Result Low Blood 03/17/2024 1:58 PM CDT 03/17/2024 2:14 PM CDT Narrative [facility] - 03/17/2024 2:55 PM CDT Critical value for Potassium electronically reported to and acknowledged by Ra Delgado MD in STN 1 at 03/17/2024 14:55:43 CDT by Charmaine Skelton. Ra Delgado PA-C LABORATORY Performing Organization Address [facility]/ZIP Co de Phone Number [address] [address] * HEPATITIS B SURFACE ANTIGEN (03/17/2024 5:40 AM CDT) Pathologist [facility] HBV Surface Ag Nonreactive Nonreactive [facility] Comment: Testing performed at: [facility] [address] [address] Blood 03/17/2024 5:40 AM CDT 03/17/2024 2:28 PM CDT Ra Delgado PA-C LABORATORY Performing Organization Address [facility] Co de Phone Number [address] [phone] * HEPATITIS B SURFACE ANTIBODY (03/17/2024 5:40 AM CDT) Pathologist [facility] HBsAb Interpretation Nonreactive [facility] HBsAb Quant <3.31 mIU/ml [facility] Comment:The Hepatitis B Surf marek Antibody quantitation is less than 8.00 mIU/mL. There is no evidence of an antibody response to a hepatitis B vaccination or recovery from a hepatitis B infection. This patient is presumed non-immune to hepatitis B. Blood 03/17/2024 5:40 AM CDT 03/17/2024 2:28 PM CDT Ra Delgado PA-C LABORATORY [facility] [address] [address] * LIPASE (03/17/2024 5:40 AM CDT) Lipase 39 13 - 60 IU/L [facility] Blood 03/17/2024 5:40 AM CDT 03/17/2024 10:46 AM CDT Ra Delgado PA-C LABORATORY [facility] [address] [address] * (ABNORMAL) PHOSPHORUS (03/17/2024 5:40 AM CDT) Pathologist [facility] Phosphorus 2.1(L) 2.5 - 4.5 mg/dL [facility] Blood 03/17/2024 5:40 AM CDT 03/17/2024 8:15 AM CDT Ra Delgado PA-C LABORATORY [facility] [address] [address] * MAGNESIUM (03/17/2024 5:40 AM CDT) Magnesium 2.3 1.6 - 2.6 mg/dL [facility] Blood 03/17/2024 5:40 AM CDT 03/17/2024 8:15 AM CDT Ra Delgado PA-C LABORATORY [facility] [address] [address] * (ABNORMAL) PANEL HEPATIC FUNCTION (03/17/2024 5:40 AM CDT) Total Protein 6.9 6.4 - 8.3 g/dL [facility] Albumin 3.3(L) 3.8 - 5.1 g/dL [facility] Bili Total 8.8(H) <=1.2 mg/dL [facility] Bili Direct 7.3(H) <=0.3 mg/dL [facility] Alk Phos 169(H) 40 - 129 IU/L [facility] Comment:No reference range e stablished for patients <18 years old. ALT (SGPT) 264(H) <=41 IU/L [facility] AST(SGOT) 171(H) 5 - 40 IU/L [facility] Blood 03/17/2024 5:40 AM CDT 03/17/2024 6:30 AM CDT Dylan Vazquez MD LABORATORY [facility] [address] [place] [phone] * (ABNORMAL) PANEL BASIC METABOLIC (BMP) (03/17/2024 5:40 AM CDT) CO2 26 22 - 30 mmol/L [facility] AnGap 13 8 - 16 mmol/L [facility] Glucose 103(H) 70 - 100 mg/dL [facility] Creatinine 0.95 0.70 - 1.25 mg/dL [facility] Sodium 132(L) 135 - 148 mmol/L [facility] Potassium 2.9(AA) 3.5 - 5.3 mmol/L [facility] Comment:Critical Result Low eGFR (2020 CKD-EPI) 95 >=60 ml/min/1.7 3m2 [facility] Comment: The estimated glomerular filtration rate (eGFR) was calculated using the CKD-EPI 2020 creatinine equation, which does not include race as a factor. This equation is validated in individuals 18 years of age and older, and eGFR is normalized to a body surface area of 1.73m^2. BUN 13 6 - 20 mg/dL [facility] Calcium 8.2(L) 8.6 - 10.0 mg/dL [facility] Chloride 93 92 - 108 mmol/L [facility] Blood 03/17/2024 5:40 AM CDT 03/17/2024 6:30 AM CDT Narrative [facility] - 03/17/2024 7:36 AM CDT Critical value for Potassium electronically reported to and acknowledged by Ra Delgado MD in STN 1 at 03/17/2024 07:36:00 CDT by Charmaine Skelton. Dylan Vazquez MD LABORATORY [facility] [address] [address] * (ABNORMAL) CBC WITH PLATELET (03/17/2024 5:40 AM CDT) WBC 9.21 4.00 - 10.00 k/cmm [facility] RBC 4.51(L) 4.60 - 6.00 m/cmm [facility] Hgb 14.1 13.1 - 17.5 g/dL [facility] Hematocrit 41.0 40.0 - 51.0 % [facility] MCV 90.9 80.0 - 100.0 fL [facility] MCH 31.3 25.0 - 32.0 pg [facility] MCHC 34.4 31.0 - 36.0 g/dL [facility] RDW 13.0 11.5 - 14.5 % [facility] Plt 273 150 - 400 k/cmm [facility] MPV 9.9 6.5 - 12.5 fL [facility] Blood 03/17/2024 5:40 AM CDT 03/17/2024 6:30 AM CDT Dylan Vazquez MD LABORATORY Performing Organization Address [facility]/ZIP Co de Phone Number [facility] [address] [address] documented in this encounter Visit Diagnoses Diagnosis Choledocholithiasis- Primary Calculus of bile duct without mention of cholecystitis or obstruction Choledocholithiasis Calculus of bile duct without mention of cholecystitis or obstruction Abnormal LFTs Other abnormal blood chemistry documented in this encounter Admitting Diagnoses Diagnosis Choledocholithiasis Calculus of bile duct without mention of cholecystitis or obstruction documented in this encounter Administered Medications Inactive Administered Medications - up to 3 most recent administrations Medication Order MAR Action Action Date Dose Rate Site acetaminophen (OFIRMEV) 10 mg/mL IV 1,000 mg 1,000 mg, Intravenous, PACU PRN ONCE, Administer over 15 Minutes, Starting on Venus 03/20/24 at 1150, Until Venus 03/20/24 at 1240, Moderate Pain (Use First) 03/20/2024 12:24 PM CDT 1,000 mg 400 mL/hr amLODIPine (NORVASC) tablet 10 mg 10 mg, Oral, DAILY, First dose on Sun03/17/24 at 0800, Until Discontinued Given 03/21/2024 8:30 AM CDT 10 mg Given 03/20/2024 5:22 PM CDT 10 mg Given 03/19/2024 8:16 AM CDT 10 mg ciprofloxacin in D5W (CIPRO) IV 400 mg 400 mg, Indication (Select One): Infection - Confirmed, SITE (Select all that apply): GI/Intra-abdominal, Cultures Ordered? No, Intravenous, Q12H, First dose on Sun03/18/24 at 1450, Until Discontinued 03/20/2024 7:55 AM CDT 400 mg 200 mL/hr New 03/19/2024 8:01 PM CDT 400 mg 200 mL/hr 03/19/2024 9:47 AM CDT 400 mg 200 mL/hr ciprofloxacin in D5W (CIPRO) IV 400 mg 400 mg, Indication (Select One): Infection - Confirmed, SITE (Select all that apply): GI/Intra-abdominal, Cultures Ordered? No, Intravenous, Q12H, 2 doses, First dose (after last modification) on Sun03/20/24 at 2000, Last dose on Sun03/21/24 at 0800 03/21/2024 8:32 AM CDT 400 mg 200 mL/hr 03/20/2024 8:14 PM CDT 400 mg 200 mL/hr COVID-19 Vaccine Monovalent (Pionetics) 12 years and Older Injection 0.3 mL 0.3 mL, Does the patient have a current illness that temporarily affects their immune system response (active infection, febrile, receiving temporary immunosuppressant medication)? No, Intramuscular, ONE TIME, 1 dose, On Sun03/20/24 at 1030 Given 03/21/2024 10:54 AM CDT 0.3 mL Left Deltoid DC MED REC REVIEW BY PHARMACY Discharge Date: 03/21/2024, Discharge Location: Home, Anticipated Discharge Time: 10 am - 2 pm, Discharge Medication Orders: DC Med Orders Final, Does not apply, PROTOCOL, Starting on Sun03/21/24 at 0859, Until Sun03/21/24 at 1448 fentaNYL (SUBLIMAZE) 100 mcg/2mL injection 50 mcg 50 mcg, IV Push, PACU PRN Q5MIN, 4 doses, Starting on Sun03/20/24 at 1150, Until Sun03/20/24 at 1333, Moderate Pain (Use First) Given 03/20/2024 12:18 PM CDT 50 mcg hydroCHLOROthiazide tablet 25 mg 25 mg, Oral, DAILY, First dose on Sun03/17/24 at 0800, Until Discontinued Given 03/17/2024 9:13 AM CDT 25 mg indomethacin (INDOCIN) suppository 100 mg 100 mg, Rectal, ONE TIME, 1 dose, On Sun03/18/24 at 1225 Given 03/18/2024 3:14 PM CDT 100 mg lactated ringers 1,000 mL bolus Intravenous, Administer over 120 Minutes, IV BOLUS, 1 dose, On Sun03/18/24 at 1340 New Bag 03/18/2024 1:54 PM CDT 500 mL/hr lactated ringers infusion at 75 mL/hr, Intravenous, CONTINUOUS, Starting on Sun03/19/24 at 2330, Until Sun03/20/24 at 1330 Infusing 03/20/2024 6:00 AM CDT 75 mL/hr Infusing 03/20/2024 5:00 AM CDT 75 mL/hr Infusing 03/20/2024 4:00 AM CDT 75 mL/hr lisinopril (PRINIVIL;ZESTRIL) tablet 40 mg 40 mg, Oral, DAILY, First dose on Sun03/17/24 at 0800, Until Discontinued Given 03/21/2024 8:28 AM CDT 40 mg Given 03/19/2024 8:17 AM CDT 40 mg Given 03/18/2024 8:47 AM CDT 40 mg metroNIDAZOLE (FLAGYL) IVPB 500 mg 500 mg, Indication (Select One): Infection - Confirmed, SITE (Select all that apply): GI/Intra-abdominal, Cultures Ordered? No, Intravenous, Q12H, First dose on Sun03/18/24 at 1450, Until Discontinued New Bag 03/20/2024 9:00 AM CDT 500 mg New Bag 03/19/2024 9:14 PM CDT 500 mg New 03/19/2024 8:17 AM CDT 500 mg metroNIDAZOLE (FLAGYL) IVPB 500 mg 500 mg, Indication (Select One): Infection - Confirmed, SITE (Select all that apply): GI/Intra-abdominal, Cultures Ordered? No, Intravenous, Q12H, 2 doses, First dose (after last modification) on Sun03/20/24 at 2100, Last dose on Sun03/21/24 at 0900 03/21/2024 8:28 AM CDT 500 m g 03/20/2024 9:36 PM CDT 500 mg NaCl 0.9% infusion at 75 mL/hr, Intravenous, CONTINUOUS, Starting on Sun03/19/24 at 0310, Until Sun03/19/24 at 1030 Infusing 03/19/2024 6:00 AM CDT 75 mL/hr Infusing 03/19/2024 4:00 AM CDT 75 mL/hr 03/19/2024 3:14 AM CDT 75 mL/hr potassium chloride (K-HECTOR) powder 40 mEq 40 mEq, Oral, ONE TIME, 1 dose, On Sun03/17/24 at 1545 Given 03/17/2024 5:51 PM CDT 40 mEq potassium chloride IVPB 10 mEq 10 mEq, Intravenous, Q1H, Administer over 60 Minutes, First dose on Sun03/17/24 at 0830, Last dose on Sun03/17/24 at 1030 New 03/17/2024 1:38 PM CDT 10 mE q 03/17/2024 9:08 AM CDT 10 mEq potassium chloride IVPB 10 mEq 10 mEq, Intravenous, Q1H, Administer over 60 Minutes, First dose (after last reorder) on Sun03/17/24 at 1500, Last dose on Sun03/17/24 at 1700 03/17/2024 3:32 PM CDT 10 mEq potassium phosphates 6 mmol in NaCl 0.9% 50 mL IVPB 6 mmol, Intravenous, ONE TIME, On Sun03/17/24 at 0845 New 03/17/2024 11:56 AM CDT 6 mmol potassium phosphates 6 mmol in NaCl 0.9% 50 mL IVPB 6 mmol, Intravenous, ONE TIME, On Sun03/18/24 at 1340 New Bag 03/18/2024 2:29 PM CDT 6 mmol sennosides (SENOKOT) tablet 8.6 mg 8.6 mg, Oral, BID, First dose on Sun03/20/24 at 2000, Until Discontinued Given 03/21/2024 8:28 AM CDT 8.6 mg Given 03/20/2024 8:01 PM CDT 8.6 mg VTE - Low Risk Low Risk Reason: Ambulating greater than 200m Twice Daily, Does not apply, PROTOCOL, Starting on Sun03/17/24 at 1119, Until Sun03/21/24 at 1448 documented in this encounter Active and Recently Administered Medications Times are shown in CDT. Scheduled Medication Order 03/19/2024 03/20/2024 03/21/2024 amLODIPine (NORVASC) tablet 10 mg 10 mg, Oral, DAILY, First dose on Sun03/17/24 at 0800, Until Discontinued 0816 (Given - Provider: Katy Del Cid RN) 0800 (Not Given (removes Due time) - Provider: Virgil Tan RN - Reason: Patient not in room - Comment: patient in [place])1722 (Given - Provider: Virgil Tan RN) 0830 (Given - Provider: Na Lemus RN) ciprofloxacin in D5W (CIPRO) IV 400 mg (CANCELED) 400 mg, Indication (Select One): Infection - Confirmed, SITE (Select all that apply): GI/Intra-abdominal, Cultures Ordered? No, Intravenous, Q12H, First dose on Sun03/18/24 at 1450, Until Discontinued 09 (New Bag - Provider: Katy Del Cid RN)1103 (Infusion completed - Provider: Katy Del Cid RN)2000 (New Bag - Provider: María Gross, RN)2113 (Infusion completed - Provider: María Gross RN) 075 (New Bag - Provider: Lourdes Ca APRN, CRNA)0859 (Infusion completed - Provider: Lourdes Ca APRN, CRNA) ciprofloxacin in D5W (CIPRO) IV 400 mg (COMPLETED) 400 mg, Indication (Select One): Infection - Confirmed, SITE (Select all that apply): GI/Intra-abdominal, Cultures Ordered? No, Intravenous, Q12H, 2 doses, First dose (after last modification) on Venus 03/20/24 at 2000, Last dose on Sun03/21/24 at 0800 2013 (New Bag - Provider: Deanne Muniz RN)2113 (Infusion completed - Provider: Deanne Muniz RN) 0832 (New Bag - Provider: Na Lemus, SANYA)1004 (Infusion completed - Provider: Na Lemus, SANYA) COVID-19 Vaccine Monovalent (Pionetics) 12 years and Older Injection 0.3 mL (COMPLETED) 0.3 mL, Does the patient have a current illness that temporarily affects their immune system response (active infection, febrile, receiving temporary immunosuppressant medication)? No, Intramuscular, ONE TIME, 1 dose, On Sun03/20/24 at 1030 1054 (Given - Provider: Na Lemus RN) [place] MED REC REVIEW BY PHARMACY(Linked Group 1) Discharge Date: 03/21/2024, Discharge Location: Home, Anticipated Discharge Time: 10 am - 2 pm, Discharge Medication Orders: DC Med Orders Final, Does not apply, PROTOCOL, Starting on Sun03/21/24 at 0859, Until Sun03/21/24 at 1448 lisinopril (PRINIVIL;ZESTRIL) tablet 40 mg 40 mg, Oral, DAILY, First dose on Sun03/17/24 at 0800, Until Discontinued 08 (Given - Provider: Katy Del Cid RN) 0800 (Not Given (removes Due time) - Provider: Virgil Tan RN - Reason: Patient not in room) 0828 (Given - Provider: Na Lemus RN) metroNIDAZOLE (FLAGYL) IVPB 500 mg (CANCELED) 500 mg, Indication (Select One): Infection - Confirmed, SITE (Select all that apply): GI/Intra-abdominal, Cultures Ordered? No, Intravenous, Q12H, First dose on Sun03/18/24 at 1450, Until Discontinued 08 (New Bag - Provider: Katy Del Cid RN)0947 (Infusion completed - Provider: Katy Del Cid RN)2113 (New Bag - Provider: María Gross RN)223 (Infusion completed - Provider: María Gross RN) 0900 (New Bag - Provider: Lourdes Ca APRN, MD PHYSICIAN DERMATOLOGIST)1002 (Infusion completed - Provider: Lourdes Ca APRN, MD PHYSICIAN DERMATOLOGIST) metroNIDAZOLE (FLAGYL) IVPB 500 mg (COMPLETED) 500 mg, Indication (Select One): Infection - Confirmed, SITE (Select all that apply): GI/Intra-abdominal, Cultures Ordered? No, Intravenous, Q12H, 2 doses, First dose (after last modification) on Sun03/20/24 at 2100, Last dose on Sun03/21/24 at 0900 2136 (New Bag - Provider: Deanne Muniz RN)2236 (Infusion completed - Provider: Deanne Muniz RN) 0828 (New Bag - Provider: Na Lemus, RN)0932 (Infusion completed - Provider: Na Lemus, RN) sennosides (SENOKOT) tablet 8.6 mg 8.6 mg, Oral, BID, First dose on Sun03/20/24 at 2000, Until Discontinued 2000 (Given - Provider: Deanne Muniz RN) 0828 (Given - Provider: Na Lemus, SANYA) VTE - Low Risk(Linked Group 2) Low Risk Reason: Ambulating greater than 200m Twice Daily, Does not apply, PROTOCOL, Starting on Sun03/17/24 at 1119, Until Sun03/21/24 at 1448 Continuous Medication Order 03/19/2024 03/20/2024 03/21/2024 lactated ringers infusion (CANCELED) at 75 mL/hr, Intravenous, CONTINUOUS, Starting on Sun03/19/24 at 2330, Until Sun03/20/24 at 1330 0031 (New Bag - Provider: Courtney Bledsoe RN)0100 (Infusing - Provider: Courtney Bledsoe RN)0200 (Infusing - Provider: Courtney Bledsoe, SANYA)0300 (Infusing - Provider: Courtney Bledsoe RN)0400 (Infusing - Provider: Courtney Bledsoe RN)0500 (Infusing - Provider: Courtney Bledsoe RN)0600 (Infusing - Provider: María Gross RN)1426 (Stopped - Provider: Virgil Tan RN) NaCl 0.9% infusion (CANCELED) at 75 mL/hr, Intravenous, CONTINUOUS, Starting on Sun03/19/24 at 0310, Until Sun03/19/24 at 1030 0314 (New Bag - Provider: Lilli Alexandre, SANYA)0400 (Infusing - Provider: Lilli Alexandre RN)0600 (Infusing - Provider: Lilli Alexandre, SANYA)1020 (Stopped - Provider: Katy Del Cid RN - Comment: eating and drinking well) PRN Medication Order 03/19/2024 03/20/2024 03/21/2024 acetaminophen (OFIRMEV) 10 mg/mL IV 1,000 mg (COMPLETED) 1,000 mg, Intravenous, PACU PRN ONCE, Administer over 15 Minutes, Starting on Venus 03/20/24 at 1150, Until Venus 03/20/24 at 1240, Moderate Pain (Use First) 1224 (New Bag - Provider: Ivette Jain RN)1240 (Infusion completed - Provider: Disha Jain RN) acetaminophen (TYLENOL) tablet 650 mg 650 mg, Oral, Q6H PRN, Starting on Sun03/20/24 at 1344, Until Sun03/21/24 at 1448, Mild Pain (Use First) bupivacaine 0.5% injection (CANCELED) INTRA-OP ONCE PRN, Starting on Venus 03/20/24 at 0809, Until Venus 03/20/24 at 1216 1150 (Given - Provider: Jose Alberto Bae MD - Comment: X 4 port incisions) bupivacaine liposome (EXPAREL) injection (CANCELED) INTRA-OP ONCE PRN, Starting on Sun03/20/24 at 1150, Until Venus 03/20/24 at 1333 1150 (Given - Provider: Sabra Sandhu MD) fentaNYL (SUBLIMAZE) 100 mcg/2mL injection 50 mcg (CANCELED) 50 mcg, IV Push, PACU PRN Q5MIN, 4 doses, Starting on Venus 03/20/24 at 1150, Until Venus 03/20/24 at 1333, Moderate Pain (Use First) 1218 (Given - Provider: Disha Jain RN) Linked Groups Order Group 1: IA MED REC REVIEW BY PHARMACYJu to med Discharge Date: 03/21/2024, Discharge Location: Home, Anticipated Discharge Time: 10 am - 2 pm, Discharge Medication Orders: DC Med Orders Final, Does not apply, PROTOCOL, Starting on Sun03/21/24 at 0859, Until Sun03/21/24 at 1448 And Discharge Med Rec Final Review by Pharmacy (CANCELED) Routine, Order to be placed by provider after medications have been entered for discharge and are ready for review by Pharmacist. This order can be placed multiple times if changes or additions have been made to medications for discharge. Choose the Preliminary DC Med Rec review when placing orders prior to the day of discharge. Choose Final DC Med Rec when all medication changes have been entered. If DC Med Rec needed now, please page the Pharmacist covering the patient to inform them., Discharge Date: 03/21/2024, Discharge Location: Home, Anticipated Discharge Time: 10 am - 2 pm Group 2: VTE - Low RiskJump to med Low Risk Reason: Ambulating greater than 200m Twice Daily, Does not apply, PROTOCOL, Starting on Sun03/17/24 at 1119, Until Sun03/21/24 at 1448 And VTE - Low Risk Communication (CANCELED) ONCE, On Sun03/17/24 at 1120, For 1 occurrence, Low Risk Reason: Ambulating greater than 200m Twice Daily, Patient at low risk for VTE; neither mechanical nor chemical prophylaxis is required documented in this encounter Care Teams Human Services Program Specialist Relationship Specialty Start Date End Date Provider, [place] [address] PCP - General 03/21/24 documented as of this encounter
--- OUTSIDE RECORDS SUMMARY | 2024-03-29 23:48 | XMS_ITS | Encounter Summary ---
Author Organization [facility] Address [address] [place] [address] Phone Care Team Providers Care Plaster Mechanic Name Role Phone Provider, Outside Primary Care Provider Unavaila ble Reason for Visit * Reason Onset Date Comments Procedure 03/24/2024 Encounter Details Date Type Department Care Team (Late st Contact Info) Description 03/24/2024 [facility]phone [facility] [address] [place] [phone] [place] [id number] Procedure Social History Tobacco Use Types Packs/Day Years [...] on file documented as of this encounter Miscellaneous Notes * Telephone Encounter - Georgiana Whittaker RN - 03/24/2024 11:43 AM CDT I attempted to schedule an ERCP. The voicemail on cell phone is full, so I left a message on the home phone. documented in this encounter Plan of Treatment Upcoming Encounters Date Type Department Care Team (Late st Contact Info) Description 04/08/2024 2:00 PM CDT [facility] [address] [address] Bradley Bynum MD [address] [phone] Scheduled Discharge Disposition: Discharged to home or self care (routine discharge) Scheduled Procedures Name Priority Associated Diagnoses Date/Ti me GI ERCP DIAGNOSTIC Semi-Elective (< 2 months) Encounter for removal of biliary stent documented as of this encounter Visit Diagnoses Not on filedocumented in this encounter Care Teams Plaster Mechanic Relationship Specialty Start Date End Date Provider, [place] [address] PCP - General 03/21/24 documented as of this encounter
--- OUTSIDE RECORDS SUMMARY | 2024-03-29 23:48 | XMS_ITS | Referral Summary ---
Author Organization [facility] Address [address] [place] [address] Phone Care Team Providers Care Banquet Cook Name Role Phone Provider, Outside Primary Care Provider Unavaila ble Source Comments [employer] is fully rolled out on [employer]. Last update 02/26/09.[facility] Encounters Date Type Department Care Team Description 03/24/2024 Telephone [facility] [address] [address] Georgiana Whittaker RN Procedure 03/17/2024 1:15 AM CDT - 03/21/2024 11:47 AM CDT Hospital Encounter [facility] Surgery/Trauma/N euro [address] [facility] [address] [place] [address] Sang Pastrana MD Wright, Michael J, MD Madar, Abdirahman Mohamed, MD Rajagopal, Shrikar S, MD Choledocholithiasis Discharge Disposition: Discharged to home or self care (routine discharge) 03/20/2024 7:30 AM CDT - 03/20/2024 10:20 AM CDT Surgery OR P4 [address] [place] [address] Jayleen Bynum MD LAP CHOLECYSTECTOMY 03/20/2024 7:24 AM CDT Anesthesia Event OR P4 [address] [place], [place] [address] Lukasz Bates MD Deutz, Cole K, MD 03/19/2024 Documentation Only MEDICINE SERVICE [facility] [address] [place] [address] Clarissa Gutierrez PA-C 03/18/2024 2:52 PM CDT Anesthesia Event OR P4 [address] [facility] [address] [place] [address] Lukasz Bates MD 03/18/2024 2:30 PM CDT - 03/18/2024 3:48 PM CDT Surgery OR P4 [address] [facility] [address] [place] [address] Alexi Taylor MD GI ERCP DIAGNOSTIC 03/18/2024 Orders Only Unspecified Department [place] Unknown, Provider 03/18/2024 Orders Only Unspecified Department [place] Unknown, Provider 03/17/2024 Orders Only Unspecified Department [place] Unknown, Provider 03/17/2024 Orders Only Unspecified Department [place] Unknown, Provider 03/17/2024 Travel 03/17/2024 Orders Only [facility] Film Room [facility] Radiology Department ANDI [address] [place] [address]. [address] [address] Provider, Outside Referral of patient (Primary Dx) from Last 3 Months Allergies No known active allergies Medications * [...] (CMS) 01/08/2018 GERD (gastroesophageal reflux disease) 2 Immunizations Name Administration Dates Next Due COVID-19 [...] [facility] [address] [place] [address] Jayleen Bynum MD [address] [place] [phone] Scheduled Discharge Disposition: Discharged to home or self care (routine discharge) Scheduled Procedures Name Priority Associated Diagnoses Date/Ti me GI ERCP DIAGNOSTIC Semi-Elective (< 2 months) Encounter for removal of biliary stent Medical Devices Implanted Type Area Plant Technician/Control Room Operator Device Identifier Shelf Expiration Date Model / Serial / Lot Endoclip 5mm [id number] Implanted:Qty: 1 on 03/20/2024 by Jayleen Bynum MD at [facility] Staple N/A: Bile Duct COVIDIEN LP 12/22/2026 [id number] / / [id number] Reload Load Endo Ernestine 30 Articulating Vascular 2.0 Tri-Staple Implanted:Qty: 1 on 03/20/2024 by Jayleen Bynum MD at [facility] Staple N/A: Bile Duct COVIDIEN LP 07/24/2028 [id number] / / [id number] Advanix Jose Martin Stent Cb 10fr X 7cm Implanted:Qty: 1 on 03/18/2024 by Alexi Taylor MD at [facility] [employer] [id number] 12/20/2025 [id number] / / [id number] Procedures Procedure Name Priority Date/Time Associated Diagnosis [...] patient PANEL LIPID Routine 11/16/2021 11:32 AM PLANT CHIEF from Last 3 Months or Most Recently Relevant to Health Maintenance Results * SURGICAL PATHOLOGY (03/20/2024 11:31 AM CDT) SURG PATH FINAL ?Surgical Pathology Report Collection Date: ?03/20/2024 11:31 CDT ?Ordering Physician: ? JAYLEEN BYNUM Received Date: ?03/20/2024 13:27 CDT ?Accession Number: ? [id number] ? Surgical Pathology Final Report Specimen Type: [...] measuring 0.4-0.6 cm in greatest dimension. Mucosa: Luqeu-pink to luque-green, velvety. Wall thickness: 0.1-0.6 cm. Other abnormalities: Received with a linear disruption along adventitial surface grossly consistent with surgical artifact. Tamale Machine Feeder sections are submitted in cassette A1 to include cystic duct margin en face and gallbladder wall. (ESB) ESB/ESB 03.20.2024 13:59 Microscopic Description: Microscopic examination performed and findings are reflected in the final diagnosis. I personally examined the relevant preparations and rendered and confirmed the diagnosis. ? Signed - Bear Rocha M.D. Attending Pathologist. ESB/ESB 03.20.2024 13:59 [facility] LAB AP Specimen ABDOMEN / Unknown 03/20/2024 11:31 AM CDT Comment:OR: Routine gross an d microscopic examination Tissue: Gall bladder Site: Abdomen Additional clinical information: Jayleen Bynum MD LAB PATHOLOGY [facility] LAB [address] [address] * Intubation/Airway (03/20/2024 7:52 AM CDT) Narrative [...] unchanged and oral mucosa unchanged Performed by: MOLDER PIPE COVERING: Lourdes Ca APRN, CRNA Events Anesthesia start: 03/20/2024 7:24 AM Intubation time: 03/20/2024 7:41 AM Kirt Atwood MD PROCEDURES * (ABNORMAL) PANEL BASIC METABOLIC (BMP) (03/20/2024 4:36 AM CDT) Only the most recent of4 resultswithin the time period is included. Sodium 133(L) 135 - 148 mmol/L [facility] Potassium 3.4(L) 3.5 - 5.3 mmol/L [facility] Chloride 99 92 - 108 mmol/L [facility] CO2 21(L) 22 - 30 mmol/L [facility] AnGap 13 8 - 16 mmol/L [facility] Glucose 93 70 - 100 mg/dL [facility] BUN 15 6 - 20 mg/dL [facility] Creatinine 0.81 0.70 - 1.25 mg/dL [facility] Calcium 8.3(L) 8.6 - 10.0 mg/dL [facility] eGFR (2020 CKD-EPI) 104 >=60 ml/min/1.7 3m2 [facility] Comment: The estimated glomerular filtration rate (eGFR) was calculated using the CKD-EPI 2020 creatinine equation, which does not include race as a factor. This equation is validated in individuals 18 years of age and older, and eGFR is normalized to a body surface area of 1.73m^2. Blood 03/20/2024 4:36 AM CDT 03/20/2024 5:27 AM CDT Carlos Chen MD LABORATORY [facility] [address] [address] * LIPASE (03/20/2024 4:36 AM CDT) Only the most recent of3 resultswithin the time period is included. Lipase 27 13 - 60 IU/L [facility] Blood 03/20/2024 4:36 AM CDT 03/20/2024 5:27 AM CDT Carlos Chen MD LABORATORY [facility] [address] [address] * (ABNORMAL) PANEL HEPATIC FUNCTION (03/20/2024 4:36 AM CDT) Only the most recent of4 resultswithin the time period is included. Total Protein 6.5 6.4 - 8.3 g/dL [facility] Albumin 3.2(L) 3.8 - 5.1 g/dL [facility] Bili Total 3.9(H) <=1.2 mg/dL [facility] Bili Direct 2.3(H) <=0.3 mg/dL [facility] Alk Phos 129 40 - 129 IU/L [facility] Comment:No reference range e stablished for patients <18 years old. ALT (SGPT) 126(H) <=41 IU/L [facility] AST(SGOT) 50(H) 5 - 40 IU/L [facility] Blood 03/20/2024 4:36 AM CDT 03/20/2024 5:27 AM CDT Ra Delgado PA-C LABORATORY Performing Organization Address City/[facility]/ZIP Co de Phone Number [facility] [address] [address] * (ABNORMAL) CBC WITH PLATELET (03/20/2024 4:36 AM CDT) Only the most recent of4 resultswithin the time period is included. WBC 6.80 4.00 - 10.00 k/cmm [facility] RBC 4.30(L) 4.60 - 6.00 m/cmm [facility] Hgb 13.4 13.1 - 17.5 g/dL [facility] Hematocrit 39.9(L) 40.0 - 51.0 % [facility] MCV 92.8 80.0 - 100.0 fL [facility] MCH 31.2 25.0 - 32.0 pg [facility] MCHC 33.6 31.0 - 36.0 g/dL [facility] RDW 13.2 11.5 - 14.5 % [facility] Plt 271 150 - 400 k/cmm [facility] MPV 10.1 6.5 - 12.5 fL [facility] Blood 03/20/2024 4:36 AM CDT 03/20/2024 5:28 AM CDT Carlos Chen MD LABORATORY Performing Organization Address City/[facility]/ZIP Co de Phone Number [address] [address] * PHOSPHORUS (03/19/2024 6:35 AM CDT) Only the most recent of3 resultswithin the time period is included. Phosphorus 2.8 2.5 - 4.5 mg/dL [facility] Blood 03/19/2024 6:35 AM CDT 03/19/2024 7:35 AM CDT Ra Delgado PA-C LABORATORY Performing Organization Address City/[facility]/ZIP Co de Phone Number [facility] [address] [address] * MAGNESIUM (03/19/2024 6:35 AM CDT) Only the most recent of3 resultswithin the time period is included. Magnesium 2.2 1.6 - 2.6 mg/dL [facility] Blood 03/19/2024 6:35 AM CDT 03/19/2024 7:35 AM CDT Ra Delgado PA-C LABORATORY [facility] [address] [place] [address] * POTASSIUM (03/19/2024 1:51 AM CDT) Only the most recent of3 resultswithin the time period is included. Potassium 4.2 3.5 - 5.3 mmol/L [facility] Blood 03/19/2024 1:51 AM CDT 03/19/2024 2:02 AM CDT Carlos Chen MD LABORATORY Performing Organization Address [facility] Co de Phone Number [facility] [address] [address] * XR ERCP COMPLETE (03/18/2024 4:22 PM [...] unchanged and oral mucosa unchanged Performed by: MOLDER PIPE COVERING: Laya Up APRN, CRNA Events Anesthesia start: 03/18/2024 2:52 PM Intubation time: 03/18/2024 2:59 PM Lukasz Bates MD PROCEDURES * ERCP (03/18/2024 2:11 PM CDT) 03/18/2024 2:11 PM CDT Narrative [facility] GI - 03/18/2024 4:50 PM CDT Gastroenterology [...] pancreas. Providers: ? Alexi Taylor MD, Siobhan Gilman, RN, Basilia Zafar, Firewood Cutter (Firewood Cutter) Referring MD: ?Carlos Chen (Referring ) Medicines: ? General Anesthesia, Indomethacin 100 mg MA Complications: ? No immediate complications. Estimated blood [...] be ASGE Complexity Level 2. Findings: The parts data writer film was normal. The esophagus was successfully [...] performed the entire procedure. Alexi Taylor MD, [id number] 03/18/2024 4:20:13 PM Number of Addenda: 0 Note Initiated On: 03/18/2024 2:11 PM Clarissa Gutierrez PA-C GI LAB [facility] GI * MR MRCP WITHOUT CONTRAST (03/18/2024 [...] THRIVE. 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 3-D reconstructions were created by the medical imaging technologist ont MRI scanner and reviewed by the radiologist. [facility]. Findings: Liver: Normal signal intensity. No focal [...] CONDITIONAL PCR (03/18/2024 7:17 AM CDT) Pathologist [facility] Hep C Ruth Nonreactive Nonreactive [facility] Comment:Performance characte ristics have not been established with this test on patients less than 10 years of age. Blood 03/18/2024 7:17 AM CDT 03/18/2024 7:57 AM CDT Ra Delgado PA-C LABORATORY Performing Organization Address [facility] Co de Phone Number [facility] [address] [address] * HEPATITIS B SURFACE ANTIGEN (03/17/2024 5:40 AM CDT) Pathologist [facility] HBV Surface Ag Nonreactive Nonreactive [facility] Comment: Testing performed at: [facility] Lab [address] [address] Blood 03/17/2024 5:40 AM CDT 03/17/2024 2:28 PM CDT Ra Delgado PA-C LABORATORY Performing Organization Address [facility] Co de Phone Number [facility] [address] [address] * HEPATITIS B SURFACE ANTIBODY (03/17/2024 5:40 AM CDT) Pathologist [facility] HBsAb Interpretation Nonreactive [facility] HBsAb Quant <3.31 mIU/ml [facility] Comment:The Hepatitis B Surf marek Antibody quantitation is less than 8.00 mIU/mL. There is no evidence of an antibody response to a hepatitis B vaccination or recovery from a hepatitis B infection. This patient is presumed non-immune to hepatitis B. Blood 03/17/2024 5:40 AM CDT 03/17/2024 2:28 PM CDT Ra Delgado PA-C LABORATORY [facility] [address] [place] [address] * ULT ABDOMEN/PELVIS OUTSIDE FILMS (03/16/2024 9:38 PM CDT) Narrative User, [id number] - 03/17/2024 6:12 AM CDT Outside Film Only Outside Provider RAD OUTSIDE FILMS from Last 3 Months or Most Recently Relevant to Health Maintenance Advance Directives For more information, please contact: [phone] * Full Code (Latest Code Status on File) Date Activated Date Inactivated Comments 03/17/2024 3:40 AM 03/21/2024 2:48 PM Question Answer Comments Does the Patient have prefer ences regarding life sustaining measures (these options only apply when the patient has a pulse): No Discussed Code Status With Whom? Patient Care Teams Banquet Cook Relationship Specialty Start Date End Date Provider, [place] [address] PCP - General 03/21/24
--- OUTSIDE RECORDS SUMMARY | 2024-03-29 23:48 | XMS_ITS | Encounter Summary ---
Author Organization [facility] Address [address] [place] [address] Phone Care Team Providers Care Wheelabrator Operator Name Role Phone Unavailable Primary Care Provider Unavailabl e Encounter Details Date Type Department Care Team ([facility] st Contact Info) Description 03/19/2024 Documentation Only MEDICINE SERVICE [facility] [address] [place], [place] [phone] Clarissa Gutierrez PA-C [address] [place] [address] [phone] Social History Tobacco Use Types Packs/Day Years [...] on file documented as of this encounter Progress Notes * Clarissa Gutierrez PA-C - 03/19/2024 9:47 AM CDT Narciso Resendiz is a 54 y.o. male with past medical history of HTN, GERD and alcohol use disorder found to have choledocholithiasis s/p ERCP 03/18 with stent placed in CBD. Repeat ERCP for stent removal in 6 weeks. Ordered today and routed to GI lab for scheduling. documented in this encounter Plan of Treatment Upcoming Encounters Date Type Department Care Team (Late st Contact Info) Description 04/08/2024 2:00 PM CDT Office [facility] [address] [address] Bradley Bynum MD [address] [place] [phone] Scheduled Discharge Disposition: Discharged to home or self care (routine discharge) Scheduled Orders Name Type Priority Associated Diagnoses Orde r Schedule ERCP GI Lab Routine Encounter for removal of biliary stent Ordered: 03/19/2024 XR ERCP COMPLETE Imaging Routine Encounter for removal of biliary stent Expected: 03/19/2024, Expires: 05/19/2025 Scheduled Procedures Name Priority Associated Diagnoses Date/Ti me GI ERCP DIAGNOSTIC Semi-Elective (< 2 months) Encounter for removal of biliary stent documented as of this encounter Visit Diagnoses Diagnosis Encounter for removal of biliary stent- Primary documented in this encounter
--- OUTSIDE RECORDS SUMMARY | 2024-03-29 23:48 | XMS_ITS | Encounter Summary ---
Author Organization [facility] Address [address] [place] [address] Phone Care Team Providers Care Cosmetic Sales Consultant Name Role Phone Unavailable Primary Care Provider Unavailabl e Reason for Visit * Reason Comments Abdominal Pain Gallbladder Problems * Auth/Cert (Routine) Specialty Diagnoses / Procedures Referred By Conttyler t Referred To Contact SURGERY Diagnoses Choledocholithiasis Sang Pastrana MD [address] [place] [address] [id number] [facility] [address] [place] [address] R4.100 [place] [address] Referral ID Status Reason Start Date Expiration Date Visits Re quested Visits Authorized [id number] 1 1 Encounter Details Date Type Department Care Team (Late st Contact Info) Description 03/20/2024 7:30 AM CDT - 03/20/2024 10:20 AM CDT Surgery OR P4 [address] [place] [address] [address]4.[address] [place], [place] [id number] Jayleen Sandhu MD [address] [place] [address] [address] [place] [address] LAP CHOLECYSTECTOMY Social History Tobacco Use Types Packs/Day Years [...] money to buy more. Never true 03/17/20 Within the past 12 months, t he [...] Sign Reading Time Taken Comments Blood Pressure 119/74 03/19/2024 11:27 PM CDT Pulse 50 03/19/2024 11:27 PM CDT Temperature 36.3 ??C (97.4 ??F) 03/19/2024 1 1:27 PM CDT Respiratory Rate 18 03/19/2024 11:2 7 PM CDT Oxygen Saturation 98% 03/19/2024 11: 27 PM CDT Inhaled Oxygen Concentration - - Weight 119.4 kg (263 lb 3.2 oz) 03/17/2024 4:00 AM CDT Height 190.5 cm (6' 3) 03/17/2024 4:00 AM CDT Body Mass Index 32.9 03/17/2024 4:00 AM CDT documented in this encounter Discharge Summaries * Ra Delgado PA-C - 03/21/2024 8:45 AM CDT DISCHARGE SUMMARY - CRISTINA Alyony Martín : 1970 Sex: male Date of Admission: 03/17/2024 Date of Discharge: 03/21/2024 Disposition: Home Primary care physician: Outside Provider ADMISSION DIAGNOSIS: Choledocholithiasis HTN DISCHARGE DIAGNOSES, ASSESSMENTS, & PLANS: Acute liver injury likely 2/2 cholestasis due to choledocholithiasis, improved: Acute cholecystitis s/p lap mick 03/20: Presented to outside ED ([place], [place]) -> family thought jaundiced, pt c/o [...] -Outpatient surgery follow-up 04/01 (Dr. 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 No focal deficits noted. Wireless Internet Installer Needed: no MEDICATIONS AT DISCHARGE Medication List [...] Your Medications These medications were sent to [facility] Discharge Pharmacy - [address] [address] Hours: / acetaminophen 325 mg tablet senna 8.6 mg [...] 4:30PM, M-F): Call the Surgery Clinic at [phone] After hours or on Holidays: Call the [facility] metal rivet machine operator . Ask the metal rivet machine operator to page the general surgery resident clinical information systems director. IF: -- you feel you are getting [...] you do not hear from someone. Call [phone] if you need to schedule or reschedule any appointments at [facility]. Moving around after your hospital visit Order [...] -- Read all labels for prescription and [id number]-[id number] medicines. Ask the pharmacist if your prescription [...] through Care Everywhere. * Cholecystectomy Discharge Instructions (Sammarinese) documented in this encounter Medications at Time [...] CDT MEDICINE PROGRESS NOTE - CRISTINA Narciso Martín : 1970 Sex: male Narciso Resendiz is a 54 y.o. male with PMH significant for HTN, GERD, obesity admitted on 03/17/2024 with suspected choledocholithiasis. ASSESSMENT AND PLAN BY PROBLEM Acute liver injury likely 2/2 cholestasis due to choledocholithiasis, improving: Acute cholecystitis: Presented to outside ED ([place], [place]) -> family thought jaundiced, pt c/o [...] 2.0. Suspect hypovolemic hyponatremia. Supplement PRN. 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 + hydrochlorothiazide 25 [...] 0436 GLU 93 03/20/2024 0436 UN 15 03/20/20246 CR 0.81 03/20/2024435 CA 8.3 (L) 03/20/2024435 ALBUMIN 3.2 (L) 03/20/2024435 TPRO 6.5 03/20/2024435 ALP 129 03/20/2024 043 ALT 126 (H) 03/20/2024435 AST 50 (H) 03/20/2024435 TBILI 3.9 (H) 03/20/2024435 CBC Lab Results Component Value Date/Time WBC 6.80 03/20/2024435 RBC 4.30 (L) 03/20/2024435 HGB 13.4 03/20/2024435 HCT 39.9 (L) 03/20/2024435 PLT 271 03/20/2024435 Hepatic Lab Results Component Value Date/Time ALBUMIN 3.2 (L) 03/20/2024435 ALP 129 03/20/2024435 ALT 126 (H) 03/20/20246 AST 50 (H) 03/20/2024435 BILIDIR 2.3 (H) 03/20/2024435 TBILI 3.9 (H) 03/20/2024435 TPRO 6.5 03/20/2024435 RADIOLOGY: MRI MRCP Impression: 1. Cholelithiasis with [...] Suspected acute cholecystitis: Presented to outside ED ([place], [place]) -> family thought jaundiced, pt c/o [...] Suspect hypovolemic hyponatremia. 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 Patient was transferred to [facility] on 03/17/24 for concern of choledocholithiasis and [...] mm CBD and cholelithiasis. Hewas transferred to [facility] 03/17/24 for concerns of choledocholithiasis and consideration [...] 0.85 03/19/2024 0635 CA 8.6 03/19/2024 0635 ERCP: ERCP (03/18/2024 [...] male D: Narciso Resendiz was returned to [facility] from PACU at 1700 for Choledocholithiasis . Patient: alert. Skin: Normal in appearance without lesions, rash or lacerations. Pain: Denies. Upon return to unit, a Four Eyes Skin Inspection was completed with Missy Nunn ([facility]) (Name & Title). Skin injuries [...] duct (7 mm). He was transferred to [facility] 03/17/24 for concerns of choledocholithiasis and consideration [...] WBC 8.42 03/18/2024 0717 RBC 4.79 03/18/2024 07 HGB 15.3 03/18/2024 0717 HCT 44.4 03/18/2024 0717 PLT 303 03/18/2024716 Lab Results Component Value Date/Time NA 131 (L) 03/18/2024 0717 K 3.4 (L) 03/18/2024 0717 CHLORIDE 94 03/18/2024 0717 CO2 26 03/18/2024 0717 GLU 102 (H) [...] Palomares, , 03/18/2024 10:52 AM * Justin Gaffney, SANYA - 03/18/2024 8:50 AM CDT 03/18/24 0848 Rapid Rounds Attendance Physician;sales advisory manager Today we still await: Clinical stability;Diagnostic workup;Symptomatic control Case Management Discharge Milestones Documentation CM Assessment Completed? Yes Patient/Family agree w/DC plan? (TBD) Transportation Plan (TBD) Prior Auth/Pre-Admit Screen Not applicable Dispo TBD, pending consults, pt is NPO. Justin Gaffney, RN, 03/18/2024 8:51 AM Justin Cee RN Clinical [...] Suspected acute cholecystitis: Presented to outside ED ([place], [place]) -> family thought jaundiced, pt c/o [...] P 2.0. 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 Outside US images unavailable (paged CC to attempt to obtain, outside system does not use Epic). LFTs 03/17: alk phos 169, ALT 264, AST 171, dBili 7.3, tBili 8.8. GI consulted: -NPO -MRCP ordered -HBV/HCV screens -Trend LFTs ADDENDUM: Radiology unable to complete MRCP today. Diet ordered, NPO @ midnight with plan for MRCP 03/18 AM. K replacement continues, protocol ordered. 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 No evidence of cholangitis. Initially pended to RTU, but since this is urgent procedure meets inpatient criteria. IP admit order will be placed in accordance with the patient class designation above. Please page the MOD Team via [employer] with clinical updates or status changes. Note [...] (ordered but not called) #Hypertension - Continue STUCCO LABORER Hydrochlorothiazide, Lisinopril, Amlodipine Diet: Diet: NPO Code [...] (Need 2) [x] I talked to a store consultant and members of the case management, [...] found to have choledocholithiasis. Hewas transferred to [facility] for consideration of ERCP. At the time [...] in this encounter Consult Notes * Olga Burrows PharmD - 03/21/2024 9:07 AM CDT PHARMACY DISCHARGE NOTE Narciso Martín : 1970 Sex: male Pharmacy service was consulted for review of patient's discharge medications. I have reviewed the patient's medications for discharge and have discussed the necessary changes with the provider. Changes have been made and medication list updated and complete. Please page with any questions. Olga Burrows PharmD 03/21/2024 09:07 For questions regarding this note, please contact pharmacist on service at PharmD [facility] ([employer]) [phone]. If no response within needed timeframe, please contact central pharmacy via phone at [phone]. Planned discharge medications are: Medication List Medications [...] Physician: Carlos Chen MD Surgery Attending Physician: Flakita Vickers MD, 03/18/2024 1:29 PM PGY-2, Emergency Medicine. [facility] Surgery Service FACULTY NOTE I saw and [...] limits of normal. Patient was transferred to [facility] on 03/17/24 for concern of choledocholithiasis and [...] to an outside hospital with abdominal bloating sinceSat, dark urine and jaundice. He went to [...] TPRO 6.9 03/17/2024 0540 Underwent EGD in 2005 for dysphagia s/p dilation. Biopsies were negative [...] choledocholithiasis and the patient was transferred to [facility]. After an MRCP showed a small obstructing [...] branches returning to the liver. A clip core maker helper was used to place surgical clips across [...] 1:18 AM CDT Pt arrived for ERCP, [facility]. 119bg 20g r forearm. VSS. Denies pain [...] in real time. Please contact me via [employer] staff message if you note any errors requiring clarification. * Jonah Frias RN - 03/17/2024 12:54 AM CDT Patient transferring from [facility] via EMS with a stone [...] Miscellaneous Notes * Provider Note - Laure Hobbs, MACHINE TOOL TECHNOLOGY INSTRUCTOR, CABLE INSTALLER REPAIRER HELPER - 03/21/2024 10:01 AM CDT SURGERY PROVIDER [...] 10:03 AM RYAN- Trauma/General Surgery Pager: via [employer] * Nursing Assessment - Na Lemus RN [...] RN - 03/21/2024 8:04 AM CDT Per TOOL SALVAGE WORKER no longer meets IP criteria, documentation in [...] Location - 5x lap sites, dermabond, pink, TANK WAGON DRIVER, unremarkable Comments: Discussed discomfort that can be [...] Comments: Expectant to discharge tomorrow Virgil Tan, SANYA, 03/20/2024 6:30 PM * Provider Note - Laure Hobbs APRN, CNP - 03/20/2024 3:09 PM CDT SURGERY PROVIDER NOTE Discharge planning: POD0 Lap mick -Ordered for you in DC navigator: when should I be concerned, showering, lifting restriction -Follow up scheduled in Surgery clinic 04/[address] Sandhu -Cholecystectomy reference sheet attached to AVS Laure Hobbs APRN, CNP, 03/20/2024 3:10 PM RYAN- Trauma/General Surgery Pager: via telemediq * Op Note Immediate - Massiel Mae MD - 03/20/2024 8:[address] [facility] Immediate Post Operative Note Note written: Day [...] Implant Name Type Inv. Item Serial No. Office Clerk Routine Lot No. LRB No. Used Action ENDOCLIP 5MM [id number] Staple ENDOCLIP 5MM [id number] COVIDIEN LP [id number] N/A 1 Implanted RELOAD LOAD ENDO TONE 30 ARTICULATING VASCULAR 2.0 TRI-STAPLE Staple RELOAD LOAD ENDO TONE 30 ARTICULATING VASCULAR 2.0 [employer]STAP[employer] COVIDIEN LP [id number] N/A 1 Implanted Intraoperative Findings: Gangrenous gallbladder [...] Psychosocial Assessment: Family Behavior: not present Courtney Bledsoe, RN, 03/20/2024 2:08 AM * Nursing Assessment [...] Within Defined Limits * Cross Cover - uSnil Higuera PA-C - 03/19/2024 3:09 AM CDT Patient requests restart of maintenance IVF's overnight given NPO status. -NS @ 75ml/H ordered. Sunil Higuera PA-C, 03/19/2024 3:10 AM * Nursing Assessment - Lilli Alexandre RN - 03/19/2024 1:02 AM CDT Nursing Assessment Head to Toe Head to Toe Assessment Shift Summary [id number] Pt is a/o X4 and can make [...] formore surgery tomorrow. Will continue to monitor. [id number] Pt remains a/o X4 and CMS and neuro's remain intact and unchanged. Pt had no c/o of pain, SOB, dizziness, vomiting, or nausea during the shift. Pt ambulates in the ruiz and room independently and remote tele has been d/c'd. Pt is NPO after midnight for surgical procedure in the AM to remove gall bladder. Pt is voiding without issue. [facility] bath and surgical pre-op checklist [facility] before patient is transferred to surgery. Pt [...] Defined Limits * Nursing Assessment - Lilli Alexandre, SANYA - 03/18/2024 8:38 PM CDT Nursing Assessment Head to Toe Head to Toe Assessment Shift Summary [id number] Pt is a/o X4 and can make [...] Cardiac Assessment Within Defined Limits except for: Kidney Puller - remote telemetry Respiratory Within defined limits [...] Cardiac Assessment Within Defined Limits except for: Kidney Puller - remote telemetry Respiratory Within defined limits [...] Cardiac Assessment Within Defined Limits except for: Kidney Puller - remote telemetry Respiratory Within defined limits [...] Cardiac Assessment Within Defined Limits except for: Kidney Puller - remote telemetry Respiratory Within defined limits [...] npo). Patient now drinking well. NPO at sd for MRCP. Can dc IVF and encourage PO intake. Tony Kent MD, 03/17/2024 8:52 PM * Nursing Assessment - Klarissa Cordoba RN - 03/17/2024 9:00 AM CDT Nursing [...] Abdominal Pain and Gallbladder Problems FACULTY ATTESTATION I, Sang Pastrana MD, personally saw the patient, performed critical or mondragon portions of the service, and discussed the care with the resident MDM / ED Course Patient presented to the emergency department with abdominal pain. Pt transferred from [facility] with stone in his bile duct needing [...] by Charlotte Ramos Scribe, 03/17/2024 2:33 AM I, Sang Pastrana MD, have reviewed the initial documentation provided [...] [facility] [address] [address] Jayleen Sandhu MD [address] [place] [id number] Scheduled Discharge Disposition: Discharged to home or self care (routine discharge) Scheduled Procedures Name Priority Associated Diagnoses Date/Ti de GI ERCP DIAGNOSTIC Semi-Elective (< 2 months) [...] ERCP COMPLETE Routine 03/18/2024 4:22 PM CDT ERCP Routine 03/18/2024 2:11 PM CDT MR [...] PANEL HEPATIC FUNCTION Timed 5:40 AM CDT HEPATITIS B SURFACE ANTIGEN [...] Date: ?03/20/2024 13:27 CDT ?Accession Number: ? [id number] ? Surgical Pathology Final Report Specimen Type: [...] adventitial surface grossly consistent with surgical artifact. Sweat Band Separator sections are submitted in cassette A1 to include cystic duct margin en face and gallbladder wall. (ESB) ESB/ESB 03.20.2024 13:59 Microscopic Description: Microscopic examination performed and findings are reflected in the final diagnosis. I personally examined the relevant preparations and rendered and confirmed the diagnosis. ? Signed - Bear Rocha M.D. Attending Pathologist. ESB/ESB 03.20.2024 13:59 [facility] AP Specimen ABDOMEN / Unknown 03/20/2024 11:31 AM CDT Comment:OR: Routine gross an d microscopic examination Tissue: Gall bladder Site: Abdomen Additional clinical information: Jayleen Sandhu MD LAB PATHOLOGY Performing Organization Address [facility] Co de Phone Number [address] [address] * LIPASE (03/20/2024 4:36 AM CDT) Lipase 27 13 - 60 IU/L [facility] Blood 03/20/2024 4:36 AM CDT 03/20/2024 5:27 AM CDT Carlos Chen MD LABORATORY Performing Organization Address [facility]/ZIP Co de Phone Number [facility] [address] [address] * (ABNORMAL) PANEL BASIC METABOLIC (BMP) (03/20/2024 4:36 AM CDT) Sodium 133(L) 135 - 148 mmol/L [facility] Potassium 3.4(L) 3.5 - 5.3 mmol/L [facility] Chloride 99 92 - 108 mmol/L [facility] CO2 21(L) 22 - 30 mmol/L [facility] AnGap 13 8 - 16 mmol/L [facility] Glucose 93 70 - 100 mg/dL [facility] BUN 15 6 - 20 mg/dL [facility] Creatinine 0.81 0.70 - 1.25 mg/dL [facility] Calcium 8.3(L) 8.6 - 10.0 mg/dL [facility] eGFR (2020 CKD-EPI) 104 >=60 ml/min/1.7 3m2 [facility] Comment: The estimated glomerular filtration rate (eGFR) was calculated using the CKD-EPI 2020 creatinine equation, which does not include race as a factor. This equation is validated in individuals 18 years of age and older, and eGFR is normalized to a body surface area of 1.73m^2. Blood 03/20/2024 4:36 AM CDT 03/20/2024 5:27 AM CDT Carlos Chen MD LABORATORY [facility] [address] [address] * (ABNORMAL) CBC WITH PLATELET (03/20/2024 4:36 AM CDT) WBC 6.80 4.00 - 10.00 k/cmm [facility] RBC 4.30(L) 4.60 - 6.00 m/cmm [facility] Hgb 13.4 13.1 - 17.5 g/dL [facility] Hematocrit 39.9(L) 40.0 - 51.0 % [facility] MCV 92.8 80.0 - 100.0 fL [facility] MCH 31.2 25.0 - 32.0 pg [facility] MCHC 33.6 31.0 - 36.0 g/dL [facility] RDW 13.2 11.5 - 14.5 % [facility] Plt 271 150 - 400 k/cmm [facility] MPV 10.1 6.5 - 12.5 fL [facility] Blood 03/20/2024 4:36 AM CDT 03/20/2024 5:28 AM CDT Carlos Chen MD LABORATORY Performing Organization Address [facility] Co de Phone Number [facility] [address] [address] * (ABNORMAL) PANEL HEPATIC FUNCTION (03/20/2024 4:36 AM CDT) Total Protein 6.5 6.4 - 8.3 g/dL [facility] Albumin 3.2(L) 3.8 - 5.1 g/dL [facility] Bili Total 3.9(H) <=1.2 mg/dL [facility] Bili Direct 2.3(H) <=0.3 mg/dL [facility] Alk Phos 129 40 - 129 IU/L [facility] Comment:No reference range e stablished for patients <18 years old. ALT (SGPT) 126(H) <=41 IU/L [facility] AST(SGOT) 50(H) 5 - 40 IU/L [facility] Blood 03/20/2024 4:36 AM CDT 03/20/2024 5:27 AM CDT Ra Delgado PA-C LABORATORY Performing Organization Address [facility] Co de Phone Number [facility] [address] [address] * LIPASE (03/19/2024 6:35 AM CDT) Lipase 25 13 - 60 IU/L [facility] Blood 03/19/2024 6:35 AM CDT 03/19/2024 7:35 AM CDT Carlos Chen MD LABORATORY Performing Organization Address City/[facility]/ZIP Co de Phone Number [facility] [address] [address] * CBC WITH PLATELET (03/19/2024 6:35 AM CDT) WBC 9.43 4.00 - 10.00 k/cmm [facility] RBC 4.61 4.60 - 6.00 m/cmm [facility] Hgb 14.3 13.1 - 17.5 g/dL [facility] Hematocrit 42.6 40.0 - 51.0 % [facility] MCV 92.4 80.0 - 100.0 fL [facility] MCH 31.0 25.0 - 32.0 pg [facility] MCHC 33.6 31.0 - 36.0 g/dL [facility] RDW 13.2 11.5 - 14.5 % [facility] Plt 296 150 - 400 k/cmm [facility] MPV 10.2 6.5 - 12.5 fL [facility] Blood 03/19/2024 6:35 AM CDT 03/19/2024 7:35 AM CDT Ra Delgado PA-C LABORATORY [facility] [address] [address] * (ABNORMAL) PANEL HEPATIC FUNCTION (03/19/2024 6:35 AM CDT) Total Protein 7.2 6.4 - 8.3 g/dL [facility] Albumin 3.5(L) 3.8 - 5.1 g/dL [facility] Bili Total 5.4(H) <=1.2 mg/dL [facility] Bili Direct 3.5(H) <=0.3 mg/dL [facility] Alk Phos 164(H) 40 - 129 IU/L [facility] Comment:No reference range e stablished for patients <18 years old. ALT (SGPT) 177(H) <=41 IU/L [facility] AST(SGOT) 72(H) 5 - 40 IU/L [facility] Blood 03/19/2024 6:35 AM CDT 03/19/2024 7:35 AM CDT Ra Delgado PA-C LABORATORY Performing Organization Address City/[facility]/ZIP Co de Phone Number [facility] [address] [address] * PHOSPHORUS (03/19/2024 6:35 AM CDT) Phosphorus 2.8 2.5 - 4.5 mg/dL [facility] Blood 03/19/2024 6:35 AM CDT 03/19/2024 7:35 AM CDT Ra Delgado PA-C LABORATORY Performing Organization Address [facility] Co de Phone Number [facility] [address] [address] * MAGNESIUM (03/19/2024 6:35 AM CDT) Magnesium 2.2 1.6 - 2.6 mg/dL [facility] Blood 03/19/2024 6:35 AM CDT 03/19/2024 7:35 AM CDT Ra Delgado PA-C LABORATORY Performing Organization Address [facility] Co de Phone Number [address] [address] * (ABNORMAL) PANEL BASIC METABOLIC (BMP) (03/19/2024 6:35 AM CDT) Sodium 133(L) 135 - 148 mmol/L [facility] Potassium 3.6 3.5 - 5.3 mmol/L [facility] Chloride 96 92 - 108 mmol/L [facility] CO2 25 22 - 30 mmol/L [facility] Glucose 106(H) 70 - 100 mg/dL [facility] BUN 14 6 - 20 mg/dL [facility] Creatinine 0.85 0.70 - 1.25 mg/dL [facility] Calcium 8.6 8.6 - 10.0 mg/dL [facility] AnGap 12 8 - 16 mmol/L [facility] eGFR (2020 CKD-EPI) 103 >=60 ml/min/1.7 3m2 [facility] Comment: The estimated glomerular filtration rate [...] PA-C LABORATORY Performing Organization Address [facility] Co de Phone Number [facility] [facility] [address] [address] * POTASSIUM (03/19/2024 1:51 AM CDT) Potassium 4.2 3.5 - 5.3 mmol/L [facility] Blood 03/19/2024 1:51 AM CDT 03/19/2024 2:02 AM CDT Carlos Chen MD LABORATORY Performing Organization Address [facility] de Phone Number [address] [address] * XR ERCP COMPLETE (03/18/2024 4:22 PM [...] and spot-film imaging was provided to the [facility]. 6 spot-film images are presented for archiving [...] PM CDT) 03/18/2024 2:11 PM CDT Narrative [facility] - 03/18/2024 4:50 PM CDT Gastroenterology [...] Taylor MD, Siobhan Gilman RN, Basilia Zafar, Shovel Logger (Shovel Logger) Referring MD: ?Carlos Chen (Referring MD) Medicines: ? General Anesthesia, Indomethacin 100 mg CA Complications: ? No immediate complications. Estimated blood [...] be ASGE Complexity Level 2. Findings: The detention deputy film was normal. The esophagus was successfully [...] performed the entire procedure. Alexi Taylor MD, [id number] 03/18/2024 4:20:13 PM Number of Addenda: 0 Note Initiated On: 03/18/2024 2:11 PM Clarissa Gutierrez PA-C GI LAB [facility] * MR MRCP WITHOUT CONTRAST (03/18/2024 11:33 AM CDT) Anatomical Region Laterality Modality Magnetic Resonan ce 03/18/2024 11:3 6 AM CDT Impressions 03/18/2024 1:14 PM CDT Impression: 1. Cholelithiasis with findings concerning for cholecystitis. 2. Marked intrahepatic and extrahepatic biliary dilatation. Findings highly concerning for a small obstructing stone at the ampulla. 3. Mild splenomegaly. Reading Radiologist: Jose Tee 03/18/2024 1:14 PM CDT Clinical Indication: possible [...] THRIVE. 3-D reconstructions were created by the health information technologist on the MRI scanner and reviewed [...] suspicious osseous lesions. Procedure Note Jose Tee V., MACKENZIE - 03/18/2024 Clinical Indication: possible choledocholithiasis [place] in eyes sometimes when [...] THRIVE. 3-D reconstructions were created by the health information technologist ont MRI scanner and reviewed by [...] CONDITIONAL PCR (03/18/2024 7:17 AM CDT) Pathologist [facility] Hep C Ruth Nonreactive Nonreactive [facility] Comment:Performance characte ristics have not been established with this test on patients less than 10 years of age. Blood 03/18/2024 7:17 AM CDT 03/18/2024 7:57 AM CDT Ra Delgado PA-C LABORATORY [facility] [address] [place] [address] * (ABNORMAL) PANEL HEPATIC FUNCTION (03/18/2024 7:17 AM CDT) Pathologist [facility] Total Protein 7.2 6.4 - 8.3 g/dL [facility] Albumin 3.5(L) 3.8 - 5.1 g/dL [facility] Bili Total 10.6(H) <=1.2 mg/dL [facility] Bili Direct 8.5(H) <=0.3 mg/dL [facility] Alk Phos 170(H) 40 - 129 IU/L [facility] Comment:No reference range e stablished for patients <18 years old. ALT (SGPT) 235(H) <=41 IU/L [facility] AST(SGOT) 145(H) 5 - 40 IU/L [facility] Blood 03/18/2024 7:17 AM CDT 03/18/2024 7:58 AM CDT Ra Delgado PA-C LABORATORY Performing Organization Address City/[facility]/ZIP Co de Phone Number [facility] [address] [address] * CBC WITH PLATELET (03/18/2024 7:17 AM CDT) WBC 8.42 4.00 - 10.00 k/cmm [facility] RBC 4.79 4.60 - 6.00 m/cmm [facility] Hgb 15.3 13.1 - 17.5 g/dL [facility] Hematocrit 44.4 40.0 - 51.0 % [facility] MCV 92.7 80.0 - 100.0 fL [facility] MCH 31.9 25.0 - 32.0 pg [facility] MCHC 34.5 31.0 - 36.0 g/dL [facility] RDW 13.0 11.5 - 14.5 % [facility] Plt 303 150 - 400 k/cmm [facility] MPV 9.9 6.5 - 12.5 fL [facility] Blood 03/18/2024 7:17 AM CDT 03/18/2024 7:57 AM CDT Ra Delgado PA-C LABORATORY [facility] [address] [address] * (ABNORMAL) PHOSPHORUS (03/18/2024 7:17 AM CDT) Phosphorus 2.0(L) 2.5 - 4.5 mg/dL [facility] Blood 03/18/2024 7:17 AM CDT 03/18/2024 7:58 AM CDT Ra Delgado PA-C LABORATORY Performing Organization Address [facility] Co de Phone Number [facility] [address] [address] * MAGNESIUM (03/18/2024 7:17 AM CDT) Magnesium 2.2 1.6 - 2.6 mg/dL [facility] Blood 03/18/2024 7:17 AM CDT 03/18/2024 7:58 AM CDT Ra Delgado PA-C LABORATORY Performing Organization Address [facility] de Phone Number [facility] [address] [address] * (ABNORMAL) PANEL BASIC METABOLIC (BMP) (03/18/2024 7:17 AM CDT) Sodium 131(L) 135 - 148 mmol/L [facility] Potassium 3.4(L) 3.5 - 5.3 mmol/L [facility] Chloride 94 92 - 108 mmol/L [facility] CO2 26 22 - 30 mmol/L [facility] Glucose 102(H) 70 - 100 mg/dL [facility] BUN 11 6 - 20 mg/dL [facility] Creatinine 0.73 0.70 - 1.25 mg/dL [facility] Calcium 8.7 8.6 - 10.0 mg/dL [facility] AnGap 11 8 - 16 mmol/L [facility] eGFR (2020 CKD-EPI) 107 >=60 ml/min/1.7 3m2 [facility] Comment: The estimated glomerular filtration rate (eGFR) was calculated using the CKD-EPI 2020 creatinine equation, which does not include race as a factor. This equation is validated in individuals 18 years of age and older, and eGFR is normalized to a body surface area of 1.73m^2. Blood 03/18/2024 7:17 AM CDT 03/18/2024 7:58 AM CDT Ra Delgado PA-C LABORATORY [facility] [address] [address] * POTASSIUM (03/17/2024 8:56 PM CDT) Potassium 3.7 3.5 - 5.3 mmol/L [facility] Blood 03/17/2024 8:56 PM CDT 03/17/2024 9:17 PM CDT Ra Delgado PA-C LABORATORY Performing Organization Address [facility] Co de Phone Number [facility] [address] [address] * (ABNORMAL) POTASSIUM (03/17/2024 1:58 PM CDT) Potassium 3.0(AA) 3.5 - 5.3 mmol/L [facility] Comment:Critical Result Low Blood 03/17/2024 1:58 PM CDT 03/17/2024 2:14 PM CDT Narrative [facility] - 03/17/2024 2:55 PM CDT Critical value for Potassium electronically reported to and acknowledged by Ra Delgado MD in STN 1 at 03/17/2024 14:55:43 CDT by Charmaine Skelton. Ra Delgado PA-C LABORATORY Performing Organization Address City/[facility]/ZIP Co de Phone Number [facility] [address] [address] * HEPATITIS B SURFACE ANTIGEN (03/17/2024 5:40 AM CDT) HBV Surface Ag Nonreactive Nonreactive [facility] Comment: Testing performed at: [facility] [address] [address] Blood 03/17/2024 5:40 AM CDT 03/17/2024 2:28 PM CDT Ra Delgado PA-C LABORATORY Performing Organization Address [facility] Co de Phone Number [facility] [address] [address] * HEPATITIS B SURFACE ANTIBODY (03/17/2024 5:40 AM CDT) HBsAb Interpretation Nonreactive [facility] HBsAb Quant <3.31 mIU/ml [facility] Comment:The Hepatitis B Surf marek Antibody quantitation is less than 8.00 mIU/mL. There is no evidence of an antibody response to a hepatitis B vaccination or recovery from a hepatitis B infection. This patient is presumed non-immune to hepatitis B. Blood 03/17/2024 5:40 AM CDT 03/17/2024 2:28 PM CDT Ra Delgado PA-C LABORATORY Performing Organization Address [facility] de Phone Number [address] [address] * LIPASE (03/17/2024 5:40 AM CDT) Lipase 39 13 - 60 IU/L [facility] Blood 03/17/2024 5:40 AM CDT 03/17/2024 10:46 AM CDT Ra Delgado PA-C LABORATORY Performing Organization Address [facility] Co de Phone Number [facility] [address] [address] * (ABNORMAL) PHOSPHORUS (03/17/2024 5:40 AM CDT) Phosphorus 2.1(L) 2.5 - 4.5 mg/dL [facility] Blood 03/17/2024 5:40 AM CDT 03/17/2024 8:15 AM CDT Ra Delgado PA-C LABORATORY Performing Organization Address [facility] Co de Phone Number [facility] [address] [address] * MAGNESIUM (03/17/2024 5:40 AM CDT) [facility] Magnesium 2.3 1.6 - 2.6 mg/dL [facility] Blood 03/17/2024 5:40 AM CDT 03/17/2024 8:15 AM CDT Ra Delgado PA-C LABORATORY Performing Organization Address [facility] Co de Phone Number [facility] [address] [address] * (ABNORMAL) PANEL HEPATIC FUNCTION (03/17/2024 5:40 AM CDT) [facility] Total Protein 6.9 6.4 - 8.3 g/dL [facility] Albumin 3.3(L) 3.8 - 5.1 g/dL [facility] Bili Total 8.8(H) <=1.2 mg/dL [facility] Bili Direct 7.3(H) <=0.3 mg/dL [facility] Alk Phos 169(H) 40 - 129 IU/L [facility] Comment:No reference range e stablished for patients <18 years old. ALT (SGPT) 264(H) <=41 IU/L [facility] AST(SGOT) 171(H) 5 - 40 IU/L [facility] Blood 03/17/2024 5:40 AM CDT 03/17/2024 6:30 AM CDT Dylan Vazquez MD LABORATORY Performing Organization Address [facility] Co de Phone Number [facility] [address] [address] * (ABNORMAL) PANEL BASIC METABOLIC (BMP) (03/17/2024 5:40 AM CDT) [facility] CO2 26 22 - 30 mmol/L [facility] AnGap 13 8 - 16 mmol/L [facility] Glucose 103(H) 70 - 100 mg/dL [facility] Creatinine 0.95 0.70 - 1.25 mg/dL [facility] Sodium 132(L) 135 - 148 mmol/L [facility] Potassium 2.9(AA) 3.5 - 5.3 mmol/L [facility] Comment:Critical Result Low eGFR (2020 CKD-EPI) 95 >=60 ml/min/1.7 3m2 [facility] Comment: The estimated glomerular filtration rate (eGFR) was calculated using the CKD-EPI 2020 creatinine equation, which does not include race as a factor. This equation is validated in individuals 18 years of age and older, and eGFR is normalized to a body surface area of 1.73m^2. BUN 13 6 - 20 mg/dL [facility] Calcium 8.2(L) 8.6 - 10.0 mg/dL [facility] Chloride 93 92 - 108 mmol/L [facility] Blood 03/17/2024 5:40 AM CDT 03/17/2024 6:30 AM CDT Narrative [facility] - 03/17/2024 7:36 AM CDT Critical value for Potassium electronically reported to and acknowledged by Ra Delgado MD in STN 1 at 03/17/2024 07:36:00 CDT by Charmaine Skelton. Dylan Vazquez MD LABORATORY [facility] [address] [address] * (ABNORMAL) CBC WITH PLATELET (03/17/2024 5:40 AM CDT) WBC 9.21 4.00 - 10.00 k/cmm [facility] RBC 4.51(L) 4.60 - 6.00 m/cmm [facility] Hgb 14.1 13.1 - 17.5 g/dL [facility] Hematocrit 41.0 40.0 - 51.0 % [facility] MCV 90.9 80.0 - 100.0 fL [facility] MCH 31.3 25.0 - 32.0 pg [facility] MCHC 34.4 31.0 - 36.0 g/dL [facility] RDW 13.0 11.5 - 14.5 % [facility] Plt 273 150 - 400 k/cmm [facility] MPV 9.9 6.5 - 12.5 fL [facility] Blood 03/17/2024 5:40 AM CDT 03/17/2024 6:30 AM CDT Dylan Vazquez MD LABORATORY [facility] [address] [address] documented in this encounter Visit Diagnoses Diagnosis Choledocholithiasis- Primary Calculus of bile duct without mention of cholecystitis or obstruction Choledocholithiasis Calculus of bile duct without mention of cholecystitis or obstruction Abnormal LFTs Other abnormal blood chemistry Choledocholithiasis Calculus of bile duct without mention of cholecystitis or obstruction documented in this encounter Admitting Diagnoses Diagnosis Choledocholithiasis Calculus of bile duct without mention of cholecystitis or obstruction documented in this encounter Administered Medications Inactive Administered Medications - up to 3 most recent administrations Medication Order MAR Action Action Date Dose Rate Site amLODIPine (NORVASC) tablet 10 mg 10 mg, Oral, DAILY, First dose on Sun03/17/24 at 0800, Until Discontinued Given 03/21/2024 8:30 AM CDT 10 mg Given 03/20/2024 5:22 PM CDT 10 mg Given 03/19/2024 8:16 AM CDT 10 mg bupivacaine 0.5% injection INTRA-OP ONCE PRN, Starting on Sun03/20/24 at 0809, Until Sun03/20/24 at 1216 Given 03/20/2024 11:50 AM CDT 30 mL Injections in multip le sites - see note bupivacaine liposome (EXPAREL) injection INTRA-OP ONCE PRN, Starting on Sun03/20/24 at 1150, Until Sun03/20/24 at 1333 Given 03/20/2024 11:50 AM CDT 20 mL DC MED REC REVIEW BY PHARMACY Discharge [...] Given 03/18/2024 8:47 AM CDT 40 mg sennosides (SENOKOT) tablet 8.6 mg 8.6 mg, [...] dose on Sun03/18/24 at 1450, Until Discontinued 0947 (New Bag - Provider: Katy Del Cid RN)1103 (Infusion completed - Provider: Katy Del Cid RN)2000 (New Bag - Provider: María Gross RN)2113 (Infusion completed - Provider: María Gross [...] RN) 0832 (New Bag - Provider: Na Lemus RN)1004 (Infusion completed - Provider: Na Lemus RN) COVID-19 Vaccine Monovalent ([place]) 12 years and Older Injection 0.3 mL (COMPLETED) 0.3 mL, Does the patient have a current illness that temporarily affects their immune system response (active infection, febrile, receiving temporary immunosuppressant medication)? No, Intramuscular, ONE TIME, 1 dose, On Sun03/20/24 at 1030 1054 (Given - Provider: Na Lemus RN) DC MED REC REVIEW BY PHARMACY(Linked Group 1) Discharge Date: 03/21/2024, Discharge Location: Home, Anticipated Discharge Time: 10 am - 2 pm, Discharge Medication Orders: DC Med Orders Final, Does not apply, PROTOCOL, Starting on Sun03/21/24 at 0859, Until Sun03/21/24 at 1448 lisinopril (PRINIVIL;ZESTRIL) tablet 40 mg 40 mg, Oral, DAILY, First dose on Sun03/17/24 at 0800, Until Discontinued 0817 (Given - Provider: Katy Del Cid RN) [...] dose on Sun03/18/24 at 1450, Until Discontinued 0817 (New Bag - Provider: Katy Del Cid RN)0947 (Infusion completed - Provider: Katy Del Cid RN)2113 (New Bag - Provider: María Gross RN)2236 (Infusion completed - Provider: María Gross RN) 0900 (New Bag - Provider: Lourdes Ca APRN, CRNA)1002 (Infusion completed - Provider: Lourdes Ca APRN, CRNA) metroNIDAZOLE (FLAGYL) IVPB 500 mg (COMPLETED) 500 [...] Courtney Bledsoe RN)0200 (Infusing - Provider: Courtney Bledsoe RN)0300 (Infusing - Provider: Courtney Bledsoe RN)0400 (Infusing - Provider: Courtney Bledsoe, RN)0500 (Infusing - Provider: Courtney Bledsoe, RN)0600 (Infusing - Provider: María Gross RN)1426 (Stopped - Provider: Virgil Tan RN) NaCl 0.9% infusion (CANCELED) at 75 mL/hr, Intravenous, CONTINUOUS, Starting on Sun03/19/24 at 0310, Until Sun03/19/24 at 1030 0314 (New Bag - Provider: Lilli Alexandre, SANYA)0400 (Infusing - Provider: Lilli Alexandre, RN)0600 (Infusing - Provider: Lilli Alexandre, RN)1020 (Stopped - Provider: Katy Del Cid RN [...] 650 mg, Oral, Q6H PRN, Starting on Venus 03/20/24 at 1344, Until Sun03/21/24 at 1448, Mild Pain (Use First) bupivacaine 0.5% injection (CANCELED) INTRA-OP ONCE PRN, Starting on Venus 03/20/24 at 0809, Until Venus 03/20/24 at 1216 1150 (Given - Provider: Jose Alberto Bae MD - Comment: X 4 port incisions) bupivacaine liposome (EXPAREL) injection (CANCELED) INTRA-OP ONCE PRN, Starting on Venus 03/20/24 at 1150, Until Venus 03/20/24 at 1333 1150 (Given - Provider: Sabra Sandhu MD) fentaNYL (SUBLIMAZE) 100 mcg/2mL injection 50 mcg (CANCELED) 50 mcg, IV Push, PACU PRN Q5MIN, 4 doses, Starting on Venus 03/20/24 at 1150, Until Venus 03/20/24 at 1333, Moderate Pain (Use First) 1218 (Given - Provider: Vera N [place], RN) Linked Groups Order Group 1: DC MED REC REVIEW BY PHARMACYJump to med Discharge Date: 03/21/2024, Discharge Location: [...]
--- OUTSIDE RECORDS SUMMARY | 2024-03-29 23:49 | XMS_ITS | Encounter Summary ---
Author Organization [facility] Address [address] [place] [address] Phone Care Team Providers Care Inspector Screen Printing Name Role Phone Provider, Outside Primary Care Provider Unavaila ble Encounter Details Date Type Department Care Team (Late st Contact Info) Description 03/17/2024 Orders Only [facility] Radiology Department AND[facility] [address] [id number] Provider, [place] [address] Referral of patient (Primary Dx) Social History Tobacco Use Types Packs/Day Years [...] on file documented as of this encounter Plan of Treatment Upcoming Encounters Date Type Department Care Team (Late st Contact Info) Description 04/08/2024 2:00 PM CDT [facility] [address] [address] Bradley Bynum MD [address] [place] [id number] Scheduled Discharge Disposition: Discharged to home or self care (routine discharge) Scheduled Procedures Name Priority Associated Diagnoses Date/Ti me GI ERCP DIAGNOSTIC Semi-Elective (< 2 months) Encounter for removal of biliary stent documented as of this encounter Results * ULT ABDOMEN/PELVIS OUTSIDE FILMS (03/16/2024 9:38 PM CDT) Narrative User, [id number] - 03/17/2024 6:12 AM CDT Outside Film Only Outside Provider RAD OUTSIDE FILMS documented in this encounter Visit Diagnoses Diagnosis Referral of patient- Primary Referral of patient without examination or treatment documented in this encounter Care Teams Inspector Screen Printing Relationship Specialty Start Date End Date Provider, [place] [address] PCP - General 03/21/24 documented as of this encounter
--- OUTSIDE RECORDS SUMMARY | 2024-03-29 23:49 | XMS_ITS | Encounter Summary ---
Author Organization [facility] Address [address] [place] [address] Care Team Providers Care Mortgage Accounting Clerk Name Role Phone Kenneth Giles MD Primary Care Provider + [phone] Kenneth Giles MD Unavailable [phone] Mikayla Concepcion MD Unavailable Kenneth Giles MD Unavailable [phone] Mikayla Concepcion MD Unavailable Kenneth Giles MD Unavailable [phone] Mikayla Concepcion MD Un[facility] Unavailabl e Encounter Details Date Type Department Care Team (Late st Contact Info) Description 02/17/2021 MyC Medical Advice [facility] [address] [place] [address] Keagan Weaver, RN Social History Tobacco [...] on filedocumented in this encounter Care Teams Mortgage Accounting Clerk Relationship Specialty Start Date End Date Kenneth Giles MD PCP - General Family Practice 05/13/13 07/23/22 [facility] [address] [place] [address] PCP - General 03/19/23 [place] [address] [place] [address] Assigned PCP 10/26/19 05/21/21 [place] [address] [place] [address] Assigned PCP 05/22/21 10/01/21 [place] [address] [place] [address] Assigned PCP 10/02/21 11/19/21 [place] [address] [place] [address] Assigned PCP 11/20/21 11/26/21 [place] [address] [place] [address] Assigned PCP 11/27/21 04/07/22 [place] [address] [place] [address] Assigned PCP 04/08/22 03/15/24 [facility] [address] [place] [address] Assigned PCP 03/16/24 documented as of this encounter
--- OUTSIDE RECORDS SUMMARY | 2024-03-29 23:49 | XMS_ITS | Encounter Summary ---
Author Organization [facility] Address [address] [place] [address]. [place] [address] Care Team Providers Care Steel Engraver Name Role Phone Kenneth Giles MD Primary Care Provider [phone] Kenneth Giles MD Unavailable [phone] Mikayla Concepcion MD Unavailable Kenneth Giles MD Unavailable [phone] Mikayla Concepcion MD Unavailable Kenneth Giles MD Unavailable [phone] Mikayla Concepcion MD [facility]available [facility] Unavailabl e Reason for Visit * Reason Comments Medication Refill Encounter Details Date Type Department Care Team (Late st Contact Info) Description 04/19/2020 Refill [facility] [address] [place] [address] [place] [address] [place] [address] Medication Refill Social History Tobacco [...] hypertension documented in this encounter Care Teams Steel Engraver Relationship Specialty Start Date End Date Kenneth Giles MD PCP - General Family Practice 05/13/13 07/23/22 [facility] [id number] [place], [place] [address] [place] [address] PCP - General 03/19/23 [place] [address] [place] [address] Assigned PCP 10/26/19 05/21/21 [place] [address] [place] [address] Assigned PCP 05/22/21 10/01/21 [place] [address] [place] [address] Assigned PCP 10/02/21 11/19/21 [place] [address] [place] [address] Assigned PCP 11/20/21 11/26/21 [place] [address] [place] [address] Assigned PCP 11/27/21 04/07/22 [place] [address] [place] [address] Assigned PCP 04/08/22 03/15/24 [facility] [address] [place] [address] Assigned PCP 03/16/24 documented as of this encounter
--- OUTSIDE RECORDS SUMMARY | 2024-03-29 23:49 | XMS_ITS | Encounter Summary ---
Author Organization Formerly [facility] Address [address] [place] [address] Phone Care Team Providers Care Template Checker Name Role Phone Provider, Outside Primary Care Provider Unavaila ble Encounter Details Date Type Department Care Team (Late st Contact Info) Description 03/17/2024 Orders Only Unspecified Department [place] Unknown, Provider Social History Tobacco Use Types Packs/Day Years [...] [facility] [address] [address] Bradley Bynum MD [address] [id number] Scheduled Discharge Disposition: Discharged to home or self care (routine discharge) Scheduled Procedures Name Priority Associated Diagnoses Date/Ti me GI ERCP DIAGNOSTIC Semi-Elective (< 2 months) Encounter for removal of biliary stent documented as of this encounter Procedures Procedure Name Priority Date/Time Associated Diagnosis Comments TELEMETRY STRIPS 03/17/2024 2:18 PM CDT documented in this encounter Results * TELEMETRY STRIPS (03/17/2024 2:18 PM CDT) Narrative 03/17/2024 2:18 PM CDT Ordered by an unspecified provider. Provider Unknown RAD ECHO documented in this encounter Visit Diagnoses Not on filedocumented in this encounter Care Teams Template Checker Relationship Specialty Start Date End Date Provider, [place] [address] PCP - General 03/21/24 documented as of this encounter
--- OUTSIDE RECORDS SUMMARY | 2024-03-29 23:49 | XMS_ITS | Referral Summary ---
Author Organization [place] Address [address] [place] [id number] Care Team Providers Care Rig Mechanic Name Role Phone Laurie Singh Primary Care Provider [facility] Unavailabl e Allergies Active Allergy Reactions Criticality Noted Date [...] 147 kg (324 lb) 11/16/2021 10:40 AM ACCOUNT EXECUTIVE KEY ACCOUNTS Height 188 cm (6' 2) 11/16/2021 10:40 AM ACCOUNT EXECUTIVE KEY ACCOUNTS Body Mass Index 41.6 11/16/2021 10:40 AM ACCOUNT EXECUTIVE KEY ACCOUNTS Plan of Treatment Not on file Procedures Procedure Name Priority Date/Time Associated Diagnosis Comments HEPATITIS C SCREEN REFLEX TO HCV RNA QUANT AND GENOTYPE Routine 11/16/2021 2:54 PM ACCOUNT EXECUTIVE KEY ACCOUNTS Need for hepatitis C screening test LIPID REFLEX TO DIRECT LDL PANEL Routine 11/16/2021 11:32 AM ACCOUNT EXECUTIVE KEY ACCOUNTS Essential hypertension BASIC METABOLIC PANEL Routine 11/16/2021 11:32 AM ACCOUNT EXECUTIVE KEY ACCOUNTS Essential hypertension COLONOSCOPY Routine 03/07/2016 11:08 AM CDT from Last 3 Months or Most Recently Relevant to Health Maintenance Results * Hepatitis C Screen Reflex to HCV RNA Quant and Genotype (11/16/2021 2:54 PM ACCOUNT EXECUTIVE KEY ACCOUNTS) Hepatitis C Antibody Nonreactive Nonreactive 11/18/2021 9:12 AM ACCOUNT EXECUTIVE KEY ACCOUNTS [facility] Blood VENOUS BLOOD / Unknown Venipuncture / Unknown 11/16/2021 2:54 PM ACCOUNT EXECUTIVE KEY ACCOUNTS 11/16/2021 2:54 PM ACCOUNT EXECUTIVE KEY ACCOUNTS Narrative [facility] - 11/18/2021 9:12 AM ACCOUNT EXECUTIVE KEY ACCOUNTS Assay performance characteristics have not been established for newborns, infants, and children. Kenneth Giles MD LAB - BLOOD ORDERABL ES [facility] [address] [facility], Room [address] [phone] * Lipid panel reflex to direct LDL Fasting (11/16/2021 11:32 AM ACCOUNT EXECUTIVE KEY ACCOUNTS) Cholesterol 188 <200 mg/dL 11/17/2021 7:58 AM ACCOUNT EXECUTIVE KEY ACCOUNTS [facility] Triglycerides 111 <150 mg/dL 11/17/2021 7:58 AM ACCOUNT EXECUTIVE KEY ACCOUNTS [facility] Direct Measure HDL 70 >=40 mg/dL 11/17/2021 7:58 AM ACCOUNT EXECUTIVE KEY ACCOUNTS [facility] LDL Cholesterol Calculated 96 <=100 mg/dL 11/17/2021 7:58 AM ACCOUNT EXECUTIVE KEY ACCOUNTS [facility] Non HDL Cholesterol 118 <130 mg/dL 11/17/2021 7:58 AM ACCOUNT EXECUTIVE KEY ACCOUNTS [facility] Patient Fasting > 8hrs? Unknown 11/17/2021 7:58 AM ACCOUNT EXECUTIVE KEY ACCOUNTS [facility] Blood BLOOD SPECIMEN / Unknown Venipuncture / Unknown 11/16/2021 11:32 AM ACCOUNT EXECUTIVE KEY ACCOUNTS 11/16/2021 11:32 AM ACCOUNT EXECUTIVE KEY ACCOUNTS Narrative [facility] - 11/17/2021 7:58 AM ACCOUNT EXECUTIVE KEY ACCOUNTS Cholesterol Desirable: ??<200 mg/dL Triglycerides Normal: ??Less [...] LAB - BLOOD ORDERABL ES [facility] [address] Lab (no room number, 1st floor of clinic) [place] [address], [facility] [phone] * (ABNORMAL) Basic metabolic panel (Ca, Cl, CO2, Creat, Gluc, K, Na, BUN) (11/16/2021 11:32 AM ACCOUNT EXECUTIVE KEY ACCOUNTS) Sodium 134 133 - 144 mmol/L 11/17/2021 7:56 AM [facility] Potassium 3.3(L) 3.4 - 5.3 mmol/L 11/17/2021 7:56 AM ACCOUNT EXECUTIVE KEY ACCOUNTS [facility] Chloride 100 94 - 109 mmol/L 11/17/2021 7:56 AM ACCOUNT EXECUTIVE KEY ACCOUNTS [facility] Carbon Dioxide (CO2) 28 20 - 32 mmol/L 11/17/2021 7:56 AM ACCOUNT EXECUTIVE KEY ACCOUNTS [facility] Anion Gap 6 3 - 14 mmol/L 11/17/2021 7:56 AM ACCOUNT EXECUTIVE KEY ACCOUNTS [facility] Urea Nitrogen 14 7 - 30 mg/dL 11/17/2021 7:56 AM ACCOUNT EXECUTIVE KEY ACCOUNTS [facility] Creatinine 0.85 0.66 - 1.25 mg/dL 11/17/2021 7:56 AM ACCOUNT EXECUTIVE KEY ACCOUNTS [facility] Calcium 8.6 8.5 - 10.1 mg/dL 11/17/2021 7:56 AM ACCOUNT EXECUTIVE KEY ACCOUNTS [facility] Glucose 112(H) 70 - 99 mg/dL 11/17/2021 7:56 AM ACCOUNT EXECUTIVE KEY ACCOUNTS [facility] GFR Estimate >90 >60 mL/min/1.7 3m2 11/17/2021 7:56 AM ACCOUNT EXECUTIVE KEY ACCOUNTS [facility] Comment:Effective August 252020 eGFRcr in adults is calculated using the 2020 CKD-EPI creatinine equation which includes age and gender (Tabatha et al., NEJM, DOI: 10.1056/OBVWim6605419) Blood BLOOD SPECIMEN / Unknown Venipuncture / Unknown 11/16/2021 11:32 AM ACCOUNT EXECUTIVE KEY ACCOUNTS 11/16/2021 11:32 AM ACCOUNT EXECUTIVE KEY ACCOUNTS Kenneth Giles MD LAB - BLOOD ORDERABL ES [facility] [address] Lab (no room number, 1st floor of clinic) [place] [address], [facility] [phone] * COLONOSCOPY (03/07/2016 11:08 AM CDT) COLONOSCOPY [facility] Patient Name: Narciso Resendiz ?Procedure Date: 03/07/2016 [...] and ?oxygen saturations were monitored continuously. The [id number] was introduced through the anus and ?advanced [...] neoplasm of digestive organs CPT copyright 2013 [employer]. All rights reserved. The codes documented in this report are preliminary and upon foundry process engineer review may be revised to meet current compliance requirements. Electronically signed by Pelon Taylor MD __ Pelon Taylor MD 03/07/2016 12:53 PM I was physically present for the entire viewing portion of the exam. Number of Addenda: 0 Note Initiated On: 03/07/2016 11:08 AM MRN: ?[id number] Procedure Date: ? 03/07/2016 11:08:07 AM Scope Withdrawal Time: 0 hours 6 minutes 22 seconds Total Procedure Duration: 0 hours 11 minutes 39 seconds Estimated Blood Loss: ? Scope In: 12:33:30 PM Scope Out: 12:45:09 PM RADIOLOGY RESULTS 03/07/2016 11:0 8 AM CDT Kenneth Giles MD PROCEDURES RADIOLOGY RESULTS from Last 3 Months or Most Recently Relevant to Health Maintenance Care Teams Rig Mechanic Relationship Specialty Start Date End Date [facility], [facility] [address] [place], [place] [id number] PCP - General 03/19/23 Clinic - [facility] [address] [place] [address] Assigned PCP 03/16/24
--- OUTSIDE RECORDS SUMMARY | 2024-03-29 23:49 | XMS_ITS | Encounter Summary ---
Author Organization [facility] Address [address] [facility] [place] [address] Phone Care Team Providers Care Framework Developer Name Role Phone Unavailable Primary Care Provider Unavailabl e Reason for Visit * Reason Comments Abdominal Pain Gallbladder Problems * Auth/Cert (Routine) Specialty Diagnoses / Procedures Referred By Conttyler t Referred To Contact SURGERY Diagnoses Choledocholithiasis Sang Pastrana MD [address] [place] [address] [address] 1 Inpt [facility] [address] [facility] [address] [place] [address] Referral ID Status Reason Start Date Expiration Date Visits Re quested Visits Authorized [id number] 1 1 Encounter Details Date Type Department Care Team (Late st Contact Info) Description 03/18/2024 2:30 PM CDT - 03/18/2024 3:48 PM CDT Surgery OR P4 [address] [facility] [address] [place] [address] Alexi Taylor MD [address] [place] [address] GI ERCP DIAGNOSTIC Social History Tobacco Use Types Packs/Day Years [...] Sign Reading Time Taken Comments Blood Pressure 116/72 03/18/2024 8:49 AM CDT Pulse 58 03/17/2024 11:00 PM CDT Temperature 36.3 ??C (97.4 ??F) 03/17/2024 1 1:00 PM CDT Respiratory Rate 16 03/18/2024 8:49 AM CDT Oxygen Saturation 99% 03/17/2024 11: 00 PM CDT Inhaled Oxygen Concentration - - [...] lap mick 03/20: Presented to outside ED ([place], [place]) -> family thought jaundiced, pt c/o [...] -Outpatient surgery follow-up 04/01 (Dr. 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 No focal deficits noted. Fisher Gill Net Needed: no MEDICATIONS AT DISCHARGE Medication List [...] Your Medications These medications were sent to [facility] Discharge Pharmacy - [address] [address] Hours: / acetaminophen 325 mg tablet senna [...] 4:30PM, M-F): Call the Surgery Clinic at [phone] After hours or on Holidays: Call the [facility] radial drill press operator for plastic . Ask the radial drill press operator for plastic to page the general surgery resident insulation cupola charger. IF: -- you feel you are getting [...] you do not hear from someone. Call [phone] if you need to schedule or reschedule any appointments at [facility]. Moving around after your hospital visit [...] -- Read all labels for prescription and Nvyr-rip-gcmecjj medicines. Ask the pharmacist if your prescription [...] through Care Everywhere. * Cholecystectomy Discharge Instructions (Qatari) documented in this encounter Medications at Time [...] improving: Acute cholecystitis: Presented to outside ED ([place], [place]) -> family thought jaundiced, pt c/o [...] 2.0. Suspect hypovolemic hyponatremia. Supplement PRN. 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 + hydrochlorothiazide 25 [...] 0.81 03/20/2024 0436 CA 8.3 (L) 03/20/2024 043 ALBUMIN 3.2 (L) 03/20/2024 0436 TPRO 6.5 03/20/2024 0436 ALP 129 03/20/2024 0436 ALT 126 (H) 03/20/2024 0436 AST 50 (H) 03/20/2024435 TBILI 3.9 (H) 03/20/2024 043 CBC Lab Results Component Value Date/Time WBC 6.80 03/20/2024 0436 RBC 4.30 (L) 03/20/2024435 HGB 13.4 03/20/2024435 HCT 39.9 (L) 03/20/2024435 PLT 271 03/20/2024435 Hepatic Lab Results Component Value Date/Time ALBUMIN 3.2 (L) 03/20/2024 043 ALP 129 03/20/20246 ALT 126 (H) 03/20/2024 0436 AST 50 (H) 03/20/20246 BILIDIR 2.3 (H) 03/20/2024435 TBILI 3.9 (H) 03/20/2024435 TPRO 6.5 03/20/2024 0436 RADIOLOGY: MRI MRCP [...] Suspected acute cholecystitis: Presented to outside ED ([place], [place]) -> family thought jaundiced, pt c/o [...] Suspect hypovolemic hyponatremia. 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 Patient was transferred to [facility] on 03/17/24 for concern of choledocholithiasis and [...] mm CBD and cholelithiasis. Hewas transferred to [facility] 03/17/24 for concerns of choledocholithiasis and consideration [...] male D: Narciso Resendiz was returned to [facility] from PACU at 1700 for Choledocholithiasis . Patient: alert. Skin: Normal in appearance without lesions, rash or lacerations. Pain: Denies. Upon return to unit, a Four Eyes [facility] (Name & Title). Skin injuries were not [...] duct (7 mm). He was transferred to [facility] 03/17/24 for concerns of choledocholithiasis and consideration [...] AM CDT 03/18/24 0848 Rapid Rounds Attendance Physician;donor relations manager Today we still await: Clinical stability;Diagnostic [...] Suspected acute cholecystitis: Presented to outside ED ([place], [place]) -> family thought jaundiced, pt c/o [...] P 2.0. 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 Patient Class: Inpatient Cardiac Monitoring: Not needed Brief summary of handoff from ED/Clinic Staff: 54 year old man transferred to [facility] for choledocholithiasis and consideration of ERCP. No evidence of cholangitis. Initially pended to RTU, but since this is urgent procedure meets inpatient criteria. IP admit order will be placed in accordance with the patient class designation above. Please page the MOD Team via [employer] with clinical updates or status changes. Note is for documentation only and not for billing purposes. Dylan Vazqeuz MD, 03/17/2024 2:16 AM documented in this [...] (ordered but not called) #Hypertension - Continue ELECTRICAL LINE WORKER Hydrochlorothiazide, Lisinopril, Amlodipine Diet: Diet: NPO Code [...] (Need 2) [x] I talked to a wig sales consultant and members of the case management, [...] found to have choledocholithiasis. Hewas transferred to [facility] for consideration of ERCP. At the time [...] contact pharmacist on service at [facility] ([employer]) [phone]. If no response within needed timeframe, please contact central pharmacy via phone at [phone]. Planned discharge medications are: Medication List Medications [...] MD, 03/18/2024 1:29 PM PGY-2, Emergency Medicine. [facility] Surgery Service FACULTY NOTE I saw [...] limits of normal. Patient was transferred to [facility] on 03/17/24 for concern of choledocholithiasis and [...] choledocholithiasis and the patient was transferred to [facility]. After an MRCP showed a small obstructing [...] Bae MD - Resident - Assisting * eTre Peters MD - Resident - Assisting * [...] branches returning to the liver. A clip dimension mill worker was used to place surgical clips across [...] 1:18 AM CDT Pt arrived for ERCP, [facility]. 119bg 20g r forearm. VSS. Denies pain [...] in real time. Please contact me via [employer] staff message if you note any errors requiring clarification. * Jonah Frias RN - 03/17/2024 12:54 AM CDT Patient transferring from [facility] via EMS with a stone in [...] Notes * Provider Note - Laure Hobbs, GEOTHERMAL OPERATIONS MANAGER, TRACK LAYER HEAD - 03/21/2024 10:01 AM CDT SURGERY PROVIDER [...] 10:03 AM RYAN- Trauma/General Surgery Pager: via tele[employer] * Nursing Assessment - Na Lemus RN [...] RN - 03/21/2024 8:04 AM CDT Per [facility]OOK no longer meets IP criteria, documentation in [...] Laure Hobbs APRN, CNP, 03/20/2024 3:10 PM TRACK LAYER HEAD- Trauma/General Surgery Pager: via telemediq * Op Note Immediate - Massiel Mae MD - 03/20/2024 8:09 AM CDT [facility] Immediate Post Operative Note Note written: Day of Surgery Patient Name: Narciso Resendiz ( ) OR Date: 03/20/2024729 Procedure(s) and Anesthesia Type: * LAP CHOLECYSTECTOMY [...] Implant Name Type Inv. Item Serial No. Supervisor Dairy Sanitation Lot No. LRB No. Used Action ENDOCLIP 5MM [id number] Staple ENDOCLIP 5MM [id number] COVIDIEN LP [id number] N/A 1 Implanted RELOAD LOAD ENDO TONE 30 ARTICULATING VASCULAR 2.0 TRI-STAPLE Staple RELOAD LOAD ENDO TONE 30 ARTICULATING VASCULAR 2.0 TRI-STAPLE COVIDIEN LP [id number] N/A 1 Implanted Intraoperative Findings: Gangrenous gallbladder [...] Toe Head to Toe Assessment Shift Summary [id number] Pt is a/o X4 and can make [...] formore surgery tomorrow. Will continue to monitor. [id number] Pt remains a/o X4 and CMS and [...] pre-op checklist to be completed in the [facility] before patient is transferred to surgery. [...] Toe Head to Toe Assessment Shift Summary [id number] Pt is a/o X4 and can make [...] Cardiac Assessment Within Defined Limits except for: Data Designer - remote telemetry Respiratory Within defined limits [...] Cardiac Assessment Within Defined Limits except for: Data Designer - remote telemetry Respiratory Within defined limits [...] Cardiac Assessment Within Defined Limits except for: Data Designer - remote telemetry Respiratory Within defined limits [...] Cardiac Assessment Within Defined Limits except for: Data Designer - remote telemetry Respiratory Within defined limits [...] npo). Patient now drinking well. NPO at nh for MRCP. Can dc IVF and encourage PO intake. Tony Kent MD, 03/17/2024 8:52 PM * Nursing Assessment - Klarissa Cordoba, SANYA - 03/17/2024 9:00 AM CDT Nursing Assessment [...] department with abdominal pain. Pt transferred from [facility] with stone in his bile duct [...] [facility] [address] [address] BartdJayleen MD [address] [place] [id number] Scheduled Discharge Disposition: Discharged to home or self care (routine discharge) Scheduled Procedures Name Priority Associated Diagnoses Date/Ti ms GI ERCP DIAGNOSTIC Semi-Elective (< 2 months) Encounter for removal of biliary stent documented as of this encounter Procedures Procedure Name Priority Date/Time Associated Diagnosis Comments PC TISSUE EXAM BY PATHOLOGIST STAT 03/20/2024 11:31 AM CDT Choledocholithias is PANEL BASIC METABOLIC (BMP) Routine 03/20/2024 4:36 AM CDT LIPASE Routine 03/20/2024 4:36 AM CDT PANEL HEPATIC FUNCTION Routine 03/20/2024 4:36 AM CDT PC LAB CBC/PLT Routine 03/20/2024 4:36 AM CDT PHOSPHORUS Routine 03/19/2024 6:35 AM CDT PANEL BASIC METABOLIC (BMP) Routine 03/19/2024 6:35 AM CDT MAGNESIUM Routine 03/19/2024 6:35 AM CDT LIPASE Timed 03/19/2024 6:35 AM CDT PANEL HEPATIC FUNCTION Routine 03/19/2024 6:35 AM CDT PC LAB CBC/PLT Routine 03/19/2024 6:35 AM CDT POTASSIUM Routine 03/19/2024 1:51 AM CDT XR ERCP COMPLETE Routine 03/18/2024 4:22 PM CDT GI ERCP WITH STENT Urgent (< 48 hrs) 03/18/2024 2:42 PM CDT Choledocholithias is GI ERCP WITH STONE REMOVAL Urgent (< 48 hrs) 03/18/2024 2:42 PM CDT Choledocholithias is GI ERCP WITH SPHINCTEROTOMY Urgent (< 48 hrs) 03/18/2024 2:42 PM CDT Choledocholithias is GI ERCP DIAGNOSTIC Urgent (< 48 hrs) 03/18/2024 2:42 PM CDT Choledocholithias is ERCP Routine 03/18/2024 2:11 PM CDT MR MRCP WITHOUT SECRETIN Routine 03/18/2024 11:33 AM CDT PC HEPATITIS C Routine 03/18/2024 7:17 AM CDT PHOSPHORUS Routine 03/18/2024 7:17 AM CDT PANEL BASIC METABOLIC (BMP) Routine 03/18/2024 7:17 AM CDT MAGNESIUM Routine 03/18/2024 7:17 AM CDT PANEL HEPATIC FUNCTION Routine 03/18/2024 7:17 AM CDT PC LAB CBC/PLT Routine 03/18/2024 7:17 AM CDT POTASSIUM Timed 03/17/2024 8:56 PM CDT POTASSIUM Timed 03/17/2024 1:58 PM CDT PHOSPHORUS Routine 03/17/2024 5:40 AM CDT PANEL BASIC METABOLIC (BMP) Timed 03/17/2024 5:40 AM CDT MAGNESIUM Routine 03/17/2024 5:40 AM CDT LIPASE Routine 03/17/2024 5:40 AM CDT PANEL HEPATIC FUNCTION Timed 03/17/2024 5:40 AM CDT HEPATITIS B SURFACE ANTIGEN [...] Date: ?03/20/2024 13:27 CDT ?Accession Number: ? [id number] ? Surgical Pathology Final Report Specimen Type: [...] adventitial surface grossly consistent with surgical artifact. Family Law Attorney sections are submitted in cassette A1 to include cystic duct margin en face and gallbladder wall. (ESB) ESB/ESB 03.20.2024 13:59 Microscopic Description: Microscopic examination performed and findings are reflected in the final diagnosis. I personally examined the relevant preparations and rendered and confirmed the diagnosis. ? Signed - Bear Rocha M.D. Attending Pathologist. ESB/ESB 03.20.2024 13:59 [facility] AP Specimen ABDOMEN / Unknown 03/20/2024 11:31 AM CDT Comment:OR: Routine gross an d microscopic examination Tissue: Gall bladder Site: Abdomen Additional clinical information: Jayleen Sandhu MD LAB PATHOLOGY [facility] [address] [address] * LIPASE (03/20/2024 4:36 AM CDT) Lipase 27 13 - 60 IU/L [facility] Blood 03/20/2024 4:36 AM CDT 03/20/2024 5:27 AM CDT Carlos Chen MD LABORATORY Performing Organization Address [facility]/ZIP Co de Phone Number [facility] [address] [address] * (ABNORMAL) PANEL BASIC METABOLIC (BMP) (03/20/2024 4:36 AM CDT) Sodium 133(L) 135 - 148 mmol/L [facility] Potassium 3.4(L) 3.5 - 5.3 mmol/L [facility] Chloride 99 92 - 108 mmol/L [facility] CO2 21(L) 22 - 30 mmol/L [facility] AnGap 13 8 - 16 mmol/L [facility] Glucose 93 70 - 100 mg/dL [facility] BUN 15 6 - 20 mg/dL [facility] Creatinine 0.81 0.70 - 1.25 mg/dL [facility] Calcium 8.3(L) 8.6 - 10.0 mg/dL [facility] eGFR (2020 CKD-EPI) 104 >=60 ml/min/1.7 3m2 [facility] Comment: The estimated glomerular filtration rate (eGFR) was calculated using the CKD-EPI 2020 creatinine equation, which does not include race as a factor. This equation is validated in individuals 18 years of age and older, and eGFR is normalized to a body surface area of 1.73m^2. Blood 03/20/2024 4:36 AM CDT 03/20/2024 5:27 AM CDT Carlos Chen MD LABORATORY Performing Organization Address City/[facility]/ZIP Co de Phone Number [facility] [address] [address] * (ABNORMAL) CBC WITH PLATELET (03/20/2024 4:36 AM CDT) WBC 6.80 4.00 - 10.00 k/cmm [facility] RBC 4.30(L) 4.60 - 6.00 m/cmm [facility] Hgb 13.4 13.1 - 17.5 g/dL [facility] Hematocrit 39.9(L) 40.0 - 51.0 % [facility] MCV 92.8 80.0 - 100.0 fL [facility] MCH 31.2 25.0 - 32.0 pg [facility] MCHC 33.6 31.0 - 36.0 g/dL [facility] RDW 13.2 11.5 - 14.5 % [facility] Plt 271 150 - 400 k/cmm [facility] MPV 10.1 6.5 - 12.5 fL [facility] Blood 03/20/2024 4:36 AM CDT 03/20/2024 5:28 AM CDT Carlos Chen MD LABORATORY Performing Organization Address [facility] Co de Phone Number [facility] [address] [address] * (ABNORMAL) PANEL HEPATIC FUNCTION (03/20/2024 4:36 AM CDT) Total Protein 6.5 6.4 - 8.3 g/dL [facility] Albumin 3.2(L) 3.8 - 5.1 g/dL [facility] Bili Total 3.9(H) <=1.2 mg/dL [facility] Bili Direct 2.3(H) <=0.3 mg/dL [facility] Alk Phos 129 40 - 129 IU/L [facility] Comment:No reference range e stablished for patients <18 years old. ALT (SGPT) 126(H) <=41 IU/L [facility] AST(SGOT) 50(H) 5 - 40 IU/L [facility] Blood 03/20/2024 4:36 AM CDT 03/20/2024 5:27 AM CDT Ra Delgado PA-C LABORATORY Performing Organization Address [facility] Co de Phone Number [facility] [address] [address] * LIPASE (03/19/2024 6:35 AM CDT) Lipase 25 13 - 60 IU/L [facility] Blood 03/19/2024 6:35 AM CDT 03/19/2024 7:35 AM CDT Carlos Chen MD LABORATORY Performing Organization Address City/[facility] Co de Phone Number [facility] [address] [address] * CBC WITH PLATELET (03/19/2024 6:35 AM CDT) WBC 9.43 4.00 - 10.00 k/cmm [facility] RBC 4.61 4.60 - 6.00 m/cmm [facility] Hgb 14.3 13.1 - 17.5 g/dL [facility] Hematocrit 42.6 40.0 - 51.0 % [facility] MCV 92.4 80.0 - 100.0 fL [facility] MCH 31.0 25.0 - 32.0 pg [facility] MCHC 33.6 31.0 - 36.0 g/dL [facility] RDW 13.2 11.5 - 14.5 % [facility] Plt 296 150 - 400 k/cmm [facility] MPV 10.2 6.5 - 12.5 fL [facility] Blood 03/19/2024 6:35 AM CDT 03/19/2024 7:35 AM CDT Ra Delgado PA-C LABORATORY Performing Organization Address City/[facility] Co de Phone Number [facility] [address] [address] * (ABNORMAL) PANEL HEPATIC FUNCTION (03/19/2024 6:35 AM CDT) Total Protein 7.2 6.4 - 8.3 g/dL [facility] Albumin 3.5(L) 3.8 - 5.1 g/dL [facility] Bili Total 5.4(H) <=1.2 mg/dL [facility] Bili Direct 3.5(H) <=0.3 mg/dL [facility] Alk Phos 164(H) 40 - 129 IU/L [facility] Comment:No reference range e stablished for patients <18 years old. ALT (SGPT) 177(H) <=41 IU/L [facility] AST(SGOT) 72(H) 5 - 40 IU/L [facility] Blood 03/19/2024 6:35 AM CDT 03/19/2024 7:35 AM CDT Ra Delgado PA-C LABORATORY Performing Organization Address [facility] Co de Phone Number [facility] [address] [address] * PHOSPHORUS (03/19/2024 6:35 AM CDT) Pathologist [facility] Phosphorus 2.8 2.5 - 4.5 mg/dL [facility] Blood 03/19/2024 6:35 AM CDT 03/19/2024 7:35 AM CDT Ra Delgado PA-C LABORATORY Performing Organization Address [facility] de Phone Number [facility] [address] [address] * MAGNESIUM (03/19/2024 6:35 AM CDT) Pathologist [facility] Magnesium 2.2 1.6 - 2.6 mg/dL [facility] Blood 03/19/2024 6:35 AM CDT 03/19/2024 7:35 AM CDT Ra Delgado PA-C LABORATORY Performing Organization Address [facility] de Phone Number [facility] [address] [address] * (ABNORMAL) PANEL BASIC METABOLIC (BMP) (03/19/2024 6:35 AM CDT) Sodium 133(L) 135 - 148 mmol/L [facility] Potassium 3.6 3.5 - 5.3 mmol/L [facility] Chloride 96 92 - 108 mmol/L [facility] CO2 25 22 - 30 mmol/L [facility] Glucose 106(H) 70 - 100 mg/dL [facility] BUN 14 6 - 20 mg/dL [facility] Creatinine 0.85 0.70 - 1.25 mg/dL [facility] Calcium 8.6 8.6 - 10.0 mg/dL [facility] AnGap 12 8 - 16 mmol/L [facility] eGFR (2020 CKD-EPI) 103 >=60 ml/min/1.7 3m2 [facility] Comment: The estimated glomerular filtration rate (eGFR) was calculated using the CKD-EPI 2020 creatinine equation, which does not include race as a factor. This equation is validated in individuals 18 years of age and older, and eGFR is normalized to a body surface area of 1.73m^2. Blood 03/19/2024 6:35 AM CDT 03/19/2024 7:35 AM CDT Ra Delgado PA-C LABORATORY Performing Organization Address City/[facility] Co de Phone Number [facility] [address] [address] * POTASSIUM (03/19/2024 1:51 AM CDT) Potassium 4.2 3.5 - 5.3 mmol/L [facility] Blood 03/19/2024 1:51 AM CDT 03/19/2024 2:02 AM CDT Carlos Chen MD LABORATORY Performing Organization Address [facility] Co de Phone Number [facility] [address] [address] * XR ERCP COMPLETE (03/18/2024 4:22 PM [...] resident/fellow. Reading Radiologist: Alen Lazcano Reading Resident: Lopez Fede Alexi Taylor MD RAD FLUORO * ERCP (03/18/2024 2:11 PM CDT) 03/18/2024 2:11 PM CDT Narrative [facility] - 03/18/2024 4:50 PM CDT Gastroenterology [...] Taylor MD, Siobhan Gilman RN, Basilia Zafar, Butadiene Converter Operator (Butadiene Converter Operator) Referring MD: ?Carlos Chen (Referring MD) Medicines: ? General Anesthesia, Indomethacin 100 mg KS Complications: ? No immediate complications. Estimated blood [...] be ASGE Complexity Level 2. Findings: The landscape supervisor film was normal. The esophagus was successfully [...] performed the entire procedure. Alexi Taylor MD, [id number] 03/18/2024 4:20:13 PM Number of Addenda: 0 Note Initiated On: 03/18/2024 2:11 PM Clarissa Gutierrez PA-C GI LAB [facility] * MR MRCP WITHOUT CONTRAST (03/18/2024 [...] THRIVE. 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 3-D reconstructions were created by the ct technologist ont MRI scanner and reviewed by the radiologist. [facility] Findings: Liver: Normal signal intensity. No [...] AM CDT) Hep C Ruth Nonreactive Nonreactive [facility] Comment:Performance characte ristics have not been established with this test on patients less than 10 years of age. Blood 03/18/2024 7:17 AM CDT 03/18/2024 7:57 AM CDT Ra Delgado PA-C LABORATORY [facility] [address] [address] * (ABNORMAL) PANEL HEPATIC FUNCTION (03/18/2024 7:17 AM CDT) Total Protein 7.2 6.4 - 8.3 g/dL [facility] Albumin 3.5(L) 3.8 - 5.1 g/dL [facility] [facility] Bili Total 10.6(H) <=1.2 mg/dL [facility] Bili Direct 8.5(H) <=0.3 mg/dL [facility] Alk Phos 170(H) 40 - 129 IU/L [facility] Comment:No reference range e stablished for patients <18 years old. ALT (SGPT) 235(H) <=41 IU/L [facility] AST(SGOT) 145(H) 5 - 40 IU/L [facility] Blood 03/18/2024 7:17 AM CDT 03/18/2024 7:58 AM CDT Ra Delgado PA-C LABORATORY [facility] [address] [place] [address] * CBC WITH PLATELET (03/18/2024 7:17 AM CDT) Pathologist [facility] WBC 8.42 4.00 - 10.00 k/cmm [facility] RBC 4.79 4.60 - 6.00 m/cmm [facility] Hgb 15.3 13.1 - 17.5 g/dL [facility] Hematocrit 44.4 40.0 - 51.0 % [facility] MCV 92.7 80.0 - 100.0 fL [facility] MCH 31.9 25.0 - 32.0 pg [facility] MCHC 34.5 31.0 - 36.0 g/dL [facility] RDW 13.0 11.5 - 14.5 % [facility] Plt 303 150 - 400 k/cmm [facility] MPV 9.9 6.5 - 12.5 fL [facility] Blood 03/18/2024 7:17 AM CDT 03/18/2024 7:57 AM CDT Ra Delgado PA-C LABORATORY Performing Organization Address City/[facility]/ZIP Co de Phone Number [facility] [address] [address] * (ABNORMAL) PHOSPHORUS (03/18/2024 7:17 AM CDT) Phosphorus 2.0(L) 2.5 - 4.5 mg/dL [facility] Blood 03/18/2024 7:17 AM CDT 03/18/2024 7:58 AM CDT Ra Delgado PA-C LABORATORY Performing Organization Address [facility] Co de Phone Number [facility] [address] [address] * MAGNESIUM (03/18/2024 7:17 AM CDT) Magnesium 2.2 1.6 - 2.6 mg/dL [facility] Blood 03/18/2024 7:17 AM CDT 03/18/2024 7:58 AM CDT Ra Delgado PA-C LABORATORY Performing Organization Address [facility] Co de Phone Number [facility] [address] [address] * (ABNORMAL) PANEL BASIC METABOLIC (BMP) (03/18/2024 7:17 AM CDT) Sodium 131(L) 135 - 148 mmol/L [facility] Potassium 3.4(L) 3.5 - 5.3 mmol/L [facility] Chloride 94 92 - 108 mmol/L [facility] CO2 26 22 - 30 mmol/L [facility] Glucose 102(H) 70 - 100 mg/dL [facility] BUN 11 6 - 20 mg/dL [facility] Creatinine 0.73 0.70 - 1.25 mg/dL [facility] Calcium 8.7 8.6 - 10.0 mg/dL [facility] AnGap 11 8 - 16 mmol/L [facility] eGFR (2020 CKD-EPI) 107 >=60 ml/min/1.7 3m2 [facility] Comment: The estimated glomerular filtration rate (eGFR) was calculated using the CKD-EPI 2020 creatinine equation, which does not include race as a factor. This equation is validated in individuals 18 years of age and older, and eGFR is normalized to a body surface area of 1.73m^2. Blood 03/18/2024 7:17 AM CDT 03/18/2024 7:58 AM CDT Ra Delgado PA-C LABORATORY Performing Organization Address City/[facility] Co de Phone Number [facility] [address] [address] * POTASSIUM (03/17/2024 8:56 PM CDT) Potassium 3.7 3.5 - 5.3 mmol/L [facility] Blood 03/17/2024 8:56 PM CDT 03/17/2024 9:17 PM CDT Ra Delgado PA-C LABORATORY Performing Organization Address [facility] Co de Phone Number [address] [address] * (ABNORMAL) POTASSIUM (03/17/2024 1:58 PM CDT) Potassium 3.0(AA) 3.5 - 5.3 mmol/L [facility] Comment:Critical Result Low Blood 03/17/2024 1:58 PM CDT 03/17/2024 2:14 PM CDT Narrative [facility] - 03/17/2024 2:55 PM CDT Critical value for Potassium electronically reported to and acknowledged by Ra Delgado MD in STN 1 at 03/17/2024 14:55:43 CDT by Charmaine Skelton. Ra Delgado PA-C LABORATORY Performing Organization Address [facility] Co de Phone Number [facility] [address] [address] * HEPATITIS B SURFACE ANTIGEN (03/17/2024 5:40 AM CDT) HBV Surface Ag Nonreactive Nonreactive [facility] Comment: Testing performed at: [facility] [address] [address] Blood 03/17/2024 5:40 AM CDT 03/17/2024 2:28 PM CDT Ra Delgado PA-C LABORATORY Performing Organization Address [facility] Co de Phone Number [facility] [address] [address] * HEPATITIS B SURFACE ANTIBODY (03/17/2024 5:40 AM CDT) HBsAb Interpretation Nonreactive [facility] HBsAb Quant <3.31 mIU/ml [facility] Comment:The Hepatitis B Surf marek Antibody quantitation is less than 8.00 mIU/mL. There is no evidence of an antibody response to a hepatitis B vaccination or recovery from a hepatitis B infection. This patient is presumed non-immune to hepatitis B. Blood 03/17/2024 5:40 AM CDT 03/17/2024 2:28 PM CDT Ra Delgado PA-C LABORATORY Performing Organization Address [facility] Co de Phone Number [facility] [address] [phone] * LIPASE (03/17/2024 5:40 AM CDT) Lipase 39 13 - 60 IU/L [facility] Blood 03/17/2024 5:40 AM CDT 03/17/2024 10:46 AM CDT Ra Delgado PA-C LABORATORY Performing Organization Address City/[facility] Co de Phone Number [facility] [address] [phone] * (ABNORMAL) PHOSPHORUS (03/17/2024 5:40 AM CDT) Phosphorus 2.1(L) 2.5 - 4.5 mg/dL [facility] Blood 03/17/2024 5:40 AM CDT 03/17/2024 8:15 AM CDT Ra Delgado PA-C LABORATORY Performing Organization Address City/[facility] Co de Phone Number [facility] [address] [address] * MAGNESIUM (03/17/2024 5:40 AM CDT) Magnesium 2.3 1.6 - 2.6 mg/dL [facility] Blood 03/17/2024 5:40 AM CDT 03/17/2024 8:15 AM CDT Ra Delgado PA-C LABORATORY Performing Organization Address [facility] de Phone Number [facility] [address] [address] * (ABNORMAL) PANEL HEPATIC FUNCTION (03/17/2024 5:40 AM CDT) Total Protein 6.9 6.4 - 8.3 g/dL [facility] Albumin 3.3(L) 3.8 - 5.1 g/dL [facility] Bili Total 8.8(H) <=1.2 mg/dL [facility] Bili Direct 7.3(H) <=0.3 mg/dL [facility] Alk Phos 169(H) 40 - 129 IU/L [facility] Comment:No reference range e stablished for patients <18 years old. ALT (SGPT) 264(H) <=41 IU/L [facility] AST(SGOT) 171(H) 5 - 40 IU/L [facility] Blood 03/17/2024 5:40 AM CDT 03/17/2024 6:30 AM CDT Dylan Vazquez MD LABORATORY Performing Organization Address [facility] Co de Phone Number [facility] [address] [address] * (ABNORMAL) PANEL BASIC METABOLIC (BMP) (03/17/2024 5:40 AM CDT) CO2 26 22 - 30 mmol/L [facility] AnGap 13 8 - 16 mmol/L [facility] Glucose 103(H) 70 - 100 mg/dL [facility] Creatinine 0.95 0.70 - 1.25 mg/dL [facility] Sodium 132(L) 135 - 148 mmol/L [facility] Potassium 2.9(AA) 3.5 - 5.3 mmol/L [facility] Comment:Critical Result Low eGFR (2020 CKD-EPI) 95 >=60 ml/min/1.7 3m2 [facility] Comment: The estimated glomerular filtration rate (eGFR) was calculated using the CKD-EPI 2020 creatinine equation, which does not include race as a factor. This equation is validated in individuals 18 years of age and older, and eGFR is normalized to a body surface area of 1.73m^2. BUN 13 6 - 20 mg/dL [facility] Calcium 8.2(L) 8.6 - 10.0 mg/dL [facility] Chloride 93 92 - 108 mmol/L [facility] Blood 03/17/2024 5:40 AM CDT 03/17/2024 6:30 AM CDT Narrative [facility] - 03/17/2024 7:36 AM CDT Critical value for Potassium electronically reported to and acknowledged by Ra Delgado MD in STN 1 at 03/17/2024 07:36:00 CDT by Charmaine Skelton. Dylan Vazquez MD LABORATORY [facility] [address] [address] * (ABNORMAL) CBC WITH PLATELET (03/17/2024 5:40 AM CDT) WBC 9.21 4.00 - 10.00 k/cmm [facility] RBC 4.51(L) 4.60 - 6.00 m/cmm [facility] Hgb 14.1 13.1 - 17.5 g/dL [facility] Hematocrit 41.0 40.0 - 51.0 % [facility] MCV 90.9 80.0 - 100.0 fL [facility] MCH 31.3 25.0 - 32.0 pg [facility] MCHC 34.4 31.0 - 36.0 g/dL [facility] RDW 13.0 11.5 - 14.5 % [facility] Plt 273 150 - 400 k/cmm [facility] MPV 9.9 6.5 - 12.5 fL [facility] Blood 03/17/2024 5:40 AM CDT 03/17/2024 6:30 AM CDT Dylan Vazquez MD LABORATORY [facility] [address] [place] [id number] documented in this encounter Visit Diagnoses Diagnosis [...] Given 03/19/2024 8:16 AM CDT 10 mg DC MED REC REVIEW BY PHARMACY Discharge [...] 8.6 mg, Oral, BID, First dose on Venus 03/20/24 at 2000, Until Discontinued Given 03/21/2024 8:28 [...] SANYA)1004 (Infusion completed - Provider: Na Lemus, RN) COVID-19 Vaccine Monovalent (PFIZER) 12 years and Older Injection 0.3 mL (COMPLETED) 0.3 mL, Does the patient have a current illness that temporarily affects their immune system response (active infection, febrile, receiving temporary immunosuppressant medication)? No, Intramuscular, ONE TIME, 1 dose, On Venus 03/20/24 at 1030 1054 (Given - Provider: Na [...] (Given - Provider: Katy Del Cid RN) 08 (Not Given (removes Due time) - Provider: [...] (New Bag - Provider: Katy Del Cid RN)09 (Infusion completed - Provider: Katy Del Cid RN)2113 (New Bag - Provider: María Gross RN)223 (Infusion completed - Provider: María Gross RN) 0900 (New Bag - Provider: Lourdes Ca APRN, ARTIST BLACKSMITH)1002 (Infusion completed - Provider: Lourdes Ca APRN, ARTIST BLACKSMITH) metroNIDAZOLE (FLAGYL) IVPB 500 mg (COMPLETED) 500 [...] 0828 (New Bag - Provider: Na Lemus, SANYA)0932 (Infusion completed - Provider: Na Lemus, SANYA) sennosides (SENOKOT) tablet 8.6 mg 8.6 mg, [...] Jain RN) Linked Groups Order Group 1: GA MED REC REVIEW BY PHARMACYJu to med [...]
--- OUTSIDE RECORDS SUMMARY | 2024-03-29 23:49 | XMS_ITS | Clinical Summary ---
Author Organization [place] Address [address] [place] [id number] Care Team Providers Care Sql Programmer Name Role Phone Laurie Singh Primary Care Provider [facility] Unavailabl e Allergies Active Allergy Reactions Criticality [...] 147 kg (324 lb) 11/16/2021 10:40 AM OXYGEN THERAPIST Height 188 cm (6' 2) 11/16/2021 10:40 AM OXYGEN THERAPIST Body Mass Index 41.6 11/16/2021 10:40 AM OXYGEN THERAPIST Plan of Treatment Health Maintenance Due Date [...] 02/14/2021, 05/19/2020, Additional history exists INFLUENZA VACCINE (#1) 2024 07/04/2018 (Declin ed) GLUCOSE 11/16/2024 11/16/2021, 01/23, 05/19/2020, Additional history [...] QUANT AND GENOTYPE Routine 11/16/2021 2:54 PM OXYGEN THERAPIST Need for hepatitis C screening test LIPID REFLEX TO DIRECT LDL PANEL Routine 11/16/2021 11:32 AM OXYGEN THERAPIST Essential hypertension BASIC METABOLIC PANEL Routine 11/16/2021 11:32 AM OXYGEN THERAPIST Essential hypertension COLONOSCOPY Routine 03/07/2016 11:08 AM CDT from Last 3 Months or Most Recently Relevant to Health Maintenance Results * Hepatitis C Screen Reflex to HCV RNA Quant and Genotype (11/16/2021 2:54 PM OXYGEN THERAPIST) Hepatitis C Antibody Nonreactive Nonreactive 11/18/2021 9:12 AM OXYGEN THERAPIST [facility] DO Blood VENOUS BLOOD / Unknown Venipuncture / Unknown 11/16/2021 2:54 PM OXYGEN THERAPIST 11/16/2021 2:54 PM OXYGEN THERAPIST Narrative [facility] - 11/18/2021 9:12 AM OXYGEN THERAPIST Assay performance characteristics have not been established for newborns, infants, and children. Kenneth Giles MD LAB - BLOOD ORDERABL ES [facility]ENDO [facility], Room [address] [phone] * Lipid panel reflex to direct LDL Fasting (11/16/2021 11:32 AM OXYGEN THERAPIST) Cholesterol 188 <200 mg/dL 11/17/2021 7:58 AM OXYGEN THERAPIST [facility] Triglycerides 111 <150 mg/dL 11/17/2021 7:58 AM OXYGEN THERAPIST [facility] Direct Measure HDL 70 >=40 mg/dL 11/17/2021 7:58 AM OXYGEN THERAPIST [facility] LDL Cholesterol Calculated 96 <=100 mg/dL 11/17/2021 7:58 AM OXYGEN THERAPIST [facility] Non HDL Cholesterol 118 <130 mg/dL 11/17/2021 7:58 AM OXYGEN THERAPIST [facility] Patient Fasting > 8hrs? Unknown 11/17/2021 7:58 AM OXYGEN THERAPIST [facility] Blood BLOOD SPECIMEN / Unknown Venipuncture / Unknown 11/16/2021 11:32 AM OXYGEN THERAPIST 11/16/2021 11:32 AM OXYGEN THERAPIST Narrative OX LABORATORY - 11/17/2021 7:58 AM OXYGEN THERAPIST Cholesterol Desirable: ??<200 mg/dL Triglycerides Normal: ??Less [...] LAB - BLOOD ORDERABL ES [facility] LABORATORY [facility] [address] Lab (no room number, 1st floor of clinic) [place] [address], [facility] [phone] * (ABNORMAL) Basic metabolic panel (Ca, Cl, CO2, Creat, Gluc, K, Na, BUN) (11/16/2021 11:32 AM OXYGEN THERAPIST) Sodium 134 133 - 144 mmol/L 11/17/2021 7:56 AM OXYGEN THERAPIST [facility] Potassium 3.3(L) 3.4 - 5.3 mmol/L 11/17/2021 7:56 AM OXYGEN THERAPIST [facility] Chloride 100 94 - 109 mmol/L 11/17/2021 7:56 AM OXYGEN THERAPIST [facility] Carbon Dioxide (CO2) 28 20 - 32 mmol/L 11/17/2021 7:56 AM OXYGEN THERAPIST [facility] Anion Gap 6 3 - 14 mmol/L 11/17/2021 7:56 AM OXYGEN THERAPIST [facility] Urea Nitrogen 14 7 - 30 mg/dL 11/17/2021 7:56 AM OXYGEN THERAPIST [facility] Creatinine 0.85 0.66 - 1.25 mg/dL 11/17/2021 7:56 AM OXYGEN THERAPIST [facility] Calcium 8.6 8.5 - 10.1 mg/dL 11/17/2021 7:56 AM OXYGEN THERAPIST [facility] Glucose 112(H) 70 - 99 mg/dL 11/17/2021 7:56 AM OXYGEN THERAPIST [facility] GFR Estimate >90 >60 mL/min/1.7 3m2 11/17/2021 7:56 AM OXYGEN THERAPIST [facility] Comment:Effective August 252020 eGFRcr in adults is calculated using the 2020 CKD-EPI creatinine equation which includes age and gender (Tabatha et al., NEJM, DOI: 10.1056/DLOIgv8117229) Blood BLOOD SPECIMEN / Unknown Venipuncture / Unknown 11/16/2021 11:32 AM OXYGEN THERAPIST 11/16/2021 11:32 AM OXYGEN THERAPIST Kenneth Giles MD LAB - BLOOD ORDERABL ES [facility] LAB[facility]ATORY [facility] [address] Lab (no room number, 1st floor of clinic) [place] [address], [facility] [phone] * COLONOSCOPY (03/07/2016 11:08 AM CDT) [facility] COLONOSCOPY [facility] Patient Name: Narciso Resendiz ?Procedure Date: [...] and ?oxygen saturations were monitored continuously. The ?[id number] was introduced through the anus and ?advanced [...] neoplasm of digestive organs CPT copyright 2013 [employer]. All rights reserved. The codes documented in this report are preliminary and upon automation analyst review may be revised to meet current compliance requirements. Electronically signed by Pelon Taylor MD __ Pelon Taylor MD 03/07/2016 12:53 PM I was physically present for the entire viewing portion of the exam. Number of Addenda: 0 Note Initiated On: 03/07/2016 11:08 AM MRN: ?[id number] Procedure Date: ? 03/07/2016 11:08:07 AM Scope Withdrawal Time: 0 hours 6 minutes 22 seconds Total Procedure Duration: 0 hours 11 minutes 39 seconds Estimated Blood Loss: ? Scope In: 12:33:30 PM Scope Out: 12:45:09 PM RADIOLOGY RESULTS 03/07/2016 11:0 8 AM CDT Kenneth Giles MD PROCEDURES RADIOLOGY RESULTS from Last 3 Months or Most Recently Relevant to Health Maintenance Care Teams Sql Programmer Relationship Specialty Start Date End Date [facility], [facility] [address] [place], [place] [phone] PCP - General 03/19/23 Clinic - [facility] [address] [place], [place] [phone] Assigned PCP 03/16/24
--- OUTSIDE RECORDS SUMMARY | 2024-03-29 23:49 | XMS_ITS | Encounter Summary ---
Author Organization [facility] Address [address] [facility] [place] [address] Phone Care Team Providers Care Optometric Assistant Name Role Phone Unavailable Primary Care Provider Unavailabl e Reason for Visit * Auth/Cert (Routine) Specialty Diagnoses / Procedures Referred By Susan t Referred To Contact SURGERY Diagnoses Choledocholithiasis Sang Pastrana MD [address] [place] [address] [facility] [address] [facility] [address] [place] [address] Referral ID Status Reason Start Date Expiration Date Visits Re quested Visits Authorized [id number] 1 1 Encounter Details Date Type Department Care Team (Late st Contact Info) Description 03/18/2024 2:52 PM CDT Anesthesia Event OR P4 [address] [place] [address] [address] [place], [place] [id number] Lukasz Bates MD [address] [place] [address] P4 [place], [place] 130[address] Anesthesia Record Procedure Summary Procedure Name Responsible Anesthesiologist Anesthesia Start Time Anesthesia Stop Time GI ERCP DIAGNOSTIC (Endoscopic) Lukasz Bates MD 03/18/24 1452 03/18/24 1614 Events Date Time Event Comment 03/18/2024 1439 Anesthetic plan discussed with Anesthesiologist 1439 Pre-op End 1452 An Start 1452 An Start Data 1452 IOPAE The intraoperat james pre-anesthetic evaluation was completed with no changes noted from the pre-operative anesthesia evaluation. 1457 An Induction 1459 An Intubation 1506 an zohra now 1517 No Antibiotic Needed The pat ient has been evaluated by the Surgeon and no antibiotics are needed for surgery. 1607 An Emergence 1609 Extubation 1611 an stop data 1614 An Stop Meds Name Total midazolam (VERSED) 1 mg/mL injection 1 m g fentaNYL (SUBLIMAZE) 100 mcg/ 2 mL injec tion 75 mcg lidocaine 2% injection 100 mg propofol (DIPRIVAN) injection 190 mg rocuronium (ZEMURON) injection 60 mg phenylephrine 100 mcg/mL syringe 600 mcg dexamethasone (DECADRON) 4 mg/mL injecti on 4 mg ondansetron (ZOFRAN) injection 4 mg sugammadex (BRIDION) 200 mg/ 2mL injecti on 240 mg lactated ringers infusion 800 mL * Agents Name O2 Air * Blood No blood administrations on file. Lines, Drains, and Airways Type Details Placement Removal Peripheral IV 03/17/24; 1155; Yes; 18 gauge, 1 3/4 in length; Anterior, Left; Forearm; 1; Placed in Unit; 03/21/24; 1016; None 03/17/24 1155 by Octavia Magaña RN 03/21/24 1016 by Mona Escobar [facility] Endotracheal Tube: 03/18/24; 1517 (melissa lu via procedure documentation); 7.5; 03/18/24; 1609 03/18/24 1517 by Laya Up APRN, CRNA 03/18/24 1609 by Laya Up APRN, CRNA documented in this encounter Social History Tobacco [...] Postprocedure Evaluation - Lukasz Bates MD - 03/18/2024 4:49 PM CDT Anesthesia Post Eval Patient: Narciso Resendiz Procedure(s) Performed: GI ERCP DIAGNOSTIC (Endoscopic) GI ERCP WITH SPHINCTEROTOMY (Endoscopic) GI ERCP WITH STONE REMOVAL (Endoscopic) GI ERCP WITH STENT (Endoscopic) I've examined the patient and determined that he[facility] is medically [facility]est[facility] type: General () Patient location: PACU Patient status: Post-procedure vital signs reviewed and stable Level of Consciousness: Awake Post-op pain: Adequate Respiratory: Stable Cardiovascular: Stable PONV status: none Fluid status: Acceptable Anesthetic Complications: No immediate anesthesia complications Last Vitals: Vitals Value Taken Time BP 122/77 03/18/24 1630 Temp 36.4 ??C (97.5 ??F) 03/18/24 1615 Pulse 48 03/18/24 1635 Resp 21 03/18/24 1635 SpO2 99 % 03/18/24 1635 * Anesthesia Procedure Notes - Lyaa Up APRN, CRNA - 03/18/2024 3:17 PM CDTAssociated Order(s): Intubation/Airway AIRWAY/INTUBATION PROCEDURE direct laryngoscopy (Type: Surgical Anesthesia) Process/Method: sedated and paralyzed Indications for procedure: surgery Assessment: vocal cords open and clear Preoxygenation: mask Device Device used: MAC Supporting device: Blade [...] unchanged and oral mucosa unchanged Performed by: SOLID WASTE DISPOSAL MANAGER: Laya Up APRN, CRNA Events Anesthesia start: 03/18/2024 2:52 PM Intubation time: 03/18/2024 2:59 PM * Anesthesia Preprocedure Evaluation - Lukasz Bates MD - 03/18/2024 1:32 PM CDT Anesthesia Pre-Evaluation Summary Statement: This is a 54 y.o. year old patient scheduled for GI ERCP DIAGNOSTIC (Endoscopic). Anesthesia Evaluation Internal or external H&P reviewed, patient examined and changes and/or additions made as needed Anesthesia Considerations , Negative for Anesthesia complications Pulmonary - negative ROS and normal exam Neurological - negative ROS Psychiatric (+) alcohol abuse Cardiovascular - normal exam (+) hypertension, hyperlipidemia Endo - negative ROS Musculoskeletal - negative ROS HEENT - negative ROS GI (+) GERD, obesity, liver disease (Possible EtOH hepatitis) ROS comment: Elevated LFT's Biliary obstruction Hematologic/Onc - negative ROS /Renal/Band And Cuff Cutter ROS comment: Hyponatremia Hypokalemia Airway Mallampati: II TM distance: >3 FB Neck ROM: full Mouth Opening: good Dental - normal exam OB Other Physical Exam Anesthesia Plan ASA 3 general intravenous induction Maintenance: Balanced Post-op Care: routine analgesia Anesthetic plan and risks discussed with patient. Plan discussed with SOLID WASTE DISPOSAL MANAGER. Vitals: 03/18/24 0849 BP: 116/72 Pulse: Resp: 16 Temp: SpO2: documented in this encounter Miscellaneous Notes * Anesthesia Handoff Note - Laya Up APRN, CRNA - 03/18/2024 4:14 PM CDT Anesthesia Post Handoff Patient: Narciso Resendiz Procedure(s) Performed: GI ERCP DIAGNOSTIC (Endoscopic) GI ERCP WITH SPHINCTEROTOMY (Endoscopic) GI ERCP WITH STONE REMOVAL (Endoscopic) GI ERCP WITH STENT (Endoscopic) Patient was stable and nail beds/oral mucosa pink at time of handoff. Patient location: PACU Transportation: Patient was not placed on High Flow Oxygen. Anesthesia Type: general Report to RN (darrius) The nurse's questions were answered. Comments: Vitals stable. No issues. Last Vitals: Vitals: 03/18/24 0849 BP: 116/72 Pulse: Resp: 16 Temp: SpO2: * Anesthesia Extubation Note - Laya Up APRN, CRNA - 03/18/2024 4:14 PM CDT Anesthesia Extubation Note At the time of extubation the patient was breathing spontaneously, follows commands, orally suctioned, awake, vital signs stable and within normal limits, headlift for 5 seconds, strong hand grasps for 5 seconds, 4-4 on TOF with sustained tetany, briskly follows verbal commands and eyes open. Extubation details: Spontaneous respirations, High flow oxygen, Oral ETT removed and Pharyngeal reflexes present documented in this encounter Plan of Treatment Upcoming Encounters Date Type Department Care Team (Late st Contact Info) Description 04/08/2024 2:00 PM CDT [facility] [address] [address] Bradley Bynum MD [address] [address] Scheduled Discharge Disposition: Discharged to home or self care (routine discharge) Scheduled Procedures Name Priority Associated Diagnoses Date/Ti me GI ERCP DIAGNOSTIC Semi-Elective (< 2 months) Encounter for removal of biliary stent documented as of this encounter Procedures Procedure Name Priority Date/Time Associated Diagnosis Comments INTUBATION Routine 03/18/2024 3:17 PM CDT documented in this encounter Results * Intubation/Airway (03/18/2024 3:17 PM CDT) Narrative [...] and oral mucosa unchanged Performed by: CATRACHO: Laya Up APRN, CRNA Events Anesthesia start: 03/18/2024 2:52 PM Intubation time: 03/18/2024 2:59 PM Lukasz Bates MD PROCEDURES documented in this encounter Visit Diagnoses Not on filedocumented in this encounter Administered Medications Inactive Administered Medications - up to 3 most recent administrations Medication Order MAR Action Action Date Dose Rate Site dexamethasone (DECADRON) 20 mg/ 5mL injection IV Push, INTRA-OP PRN ONCE MAY REPEAT, Starting on Sun03/18/24 at 1517, Until Sun03/18/24 at 1614 Given 03/18/2024 3:17 PM CDT 4 mg fentaNYL (SUBLIMAZE) 100 mcg/2mL injection Intravenous, INTRA-OP PRN ONCE MAY REPEAT, Starting on Sun03/18/24 at 1457, Until Sun03/18/24 at 1614 Given 03/18/2024 2:57 PM CDT 75 mcg lactated ringers infusion Intravenous, PERIOP CONTINUOUS, Starting on Sun03/18/24 at 1500, Until Sun03/18/24 at 1614 New Bag 03/18/2024 2:39 PM CDT lidocaine 2% injection Intravenous, INTRA-OP PRN ONCE MAY REPEAT, Starting on Sun03/18/24 at 1457, Until Sun03/18/24 at 1614 Given 03/18/2024 2:57 PM CDT 100 mg midazolam (PF) (VERSED) injection IV Push, INTRA-OP PRN ONCE MAY REPEAT, Starting on Sun03/18/24 at 1452, Until Sun03/18/24 at 1614 Given 03/18/2024 2:52 PM CDT 1 mg ondansetron (ZOFRAN) 4 mg/2 mL injection IV Push, INTRA-OP PRN ONCE MAY REPEAT, Starting on Sun03/18/24 at 1557, Until Sun03/18/24 at 1614 Given 03/18/2024 3:57 PM CDT 4 mg phenylephrine (JV-SYNEPHRINE) 1 mg/10mL injection IV Push, INTRA-OP PRN ONCE MAY REPEAT, Starting on Sun03/18/24 at 1531, Until Sun03/18/24 at 1614 Given 03/18/2024 3:52 PM CDT 200 mcg Given 03/18/2024 3:48 PM CDT 100 mcg Given 03/18/2024 3:44 PM CDT 100 mcg propofol (DIPRIVAN) 10 mg/mL injection emulsion Intravenous, INTRA-OP PRN ONCE MAY REPEAT, Starting on Sun03/18/24 at 1457, Until Sun03/18/24 at 1614 Given 03/18/2024 2:57 PM CDT 190 mg rocuronium bromide (ZEMURON) 10 mg/mL injection IV Push, INTRA-OP PRN ONCE MAY REPEAT, Starting on Sun03/18/24 at 1458, Until Sun03/18/24 at 1614 Given 03/18/2024 2:58 PM CDT 60 mg sugammadex (BRIDION) 200 mg/2 mL injection IV Push, INTRA-OP PRN ONCE MAY REPEAT, Starting on Sun03/18/24 at 1607, Until Sun03/18/24 at 1614 Given 03/18/2024 4:07 PM CDT 240 mg documented in this encounter
--- OUTSIDE RECORDS SUMMARY | 2024-03-29 23:49 | XMS_ITS | Clinical Summary ---
Author Organization [facility] Address [place], [place] [address] Care Team Providers Care Hotel Reservationist Name Role Phone Kenneth Giles MD Primary Care Provider [phone] Allergies Active Allergy Reactions Criticality Noted Date Comments Unlisted Allergen (Include Detail In Comments) Runny Nose 09/02/2012 Dust hayfever cats dogs ragwee Medications Medication Sig Dispensed Refills Start Date End Date Status lisinopriL (PRINIVIL; ZESTRIL) 40 mg tabletIndications: Primary hypertension Take 1 Tablet (40 mg) by mouth once daily. 90 Tablet 4 06/05/2023 Active hydroCHLOROthiazid e (HCTZ) 25 mg tabletIndications: Primary hypertension Take 1 Tablet (25 mg) by mouth once daily. 90 Tablet 4 06/05/2023 Active esomeprazole (NEXIUM) 40 mg capsule Take 40 mg by mouth. Active mupirocin (BACTROBAN) 2 % ointmentIndication s:Skin rash Apply topically to affected area(s) two times daily for 7 days. 30 g 03/24/2024 Active triamcinolone (ARISTOCORT; KENALOG) 0.1 % creamIndications:S kin rash Apply topically to affected area(s) two times daily. 80 g 03/24/2024 Active buPROPion 75 mg tabletIndications: Attention deficit disorder (ADD) in adult Take 1 Tablet (75 mg) by mouth two times daily. Based on updated ISMP guidelines, DO NOT crush or chew. 60 Tablet 1 03/24/2024 Active amLODIPine (NORVASC) 10 mg tabletIndications: Essential hypertension TAKE ONE TABLET BY MOUTH EVERY DAY 100 Tablet 3 03/29/2024 Active amLODIPine (NORVASC) 10 mg tabletIndications: Essential hypertension Take 1 Tablet (10 mg) by mouth once daily. 100 Tablet 2 05/23/2023 Discontinued Active Problems Problem Noted Date Diagnosed Date Attention deficit disorder (ADD) in adult 2023 Nummular eczema 03/24/2024 Primary hypertension 06/05/2023 Resolved Problems Problem Noted Date Diagnosed Date Resolved Date Skin rash 03/24/2024 03/24/2024 Choledocholithiasis 03/17/2024 03/24/20 HYPERTENSION - ESSENTIAL 11/06/200503/2023 Encounters Date Type Department Care Team Description 03/27/[address] [facility] [address] [place] [address] Kenneth Giles MD Refill Request (Amlodipine) 03/24/2024 9:00 AM CDT Office Visit [facility] [address] [place] [address] Kenneth Giles MD ER Follow up; Derm Problem (Left acevedo [id number]) 03/24/2024 Travel 03/16/2024 Orders Only [facility] Scanner 1 scan: (1-Ord) [facility], 03/16/2024 03/16/2024 Hospital Encounter from Last 3 Months Immunizations Name Administration Dates Next Due COVID-19 vaccine (Moderna 100mcg/0.5mL) KENYON RENAE 01/07/2021,12/10/2020 COVID-19 vaccine (Pfizer-Bio NTech 30mcg/0.3mL) 12YO+ MASHA-SUCROSE KENYON RENAE 11/16/2021 [...] Sign Reading Time Taken Comments Blood Pressure 118/62 03/24/2024 8:57 AM CDT Pulse 80 03/24/2024 8:57 AM CDT Temperature 36.8 ??C (98.2 ??F) 02/18/2021 1:50 PM CD T Respiratory Rate 16 02/18/2021 2:20 PM CDT Oxygen Saturation 97% 02/27/2023 11:59 AM CDT Inhaled Oxygen Concentration - - Weight 120.7 kg (266 lb) 03/24/2024 8:57 AM CDT Height 190.5 cm (6' 3) 03/24/2024 8:57 AM CDT Body Mass Index 33.25 03/24/2024 8:57 AM CDT Plan of Treatment Health Maintenance Due Date Last Done Comments Depression screening for age 12+ 1981 HIV for age 15-65 02/10/1984 Lipids for age 45-75 2014 11/06/2005 Zoster (shingles) series for age 50+ (1 of 2) 2019 COVID-19 vaccine series (2022- season) 2024 03/21/2024, 11/16/2021, 01/07/2021, Additional history exists Influenza for age 50-64 05/25/2024 BMI (ht and wt on same day) for age 18+ 03/24/2025 03/24/2024, 06/05/2023, 03/30/2023, Additional history exists Colonoscopy through age 75 03/07/202603/07 (Verified in [...] this topic Medical Devices Implanted Type Area Crm System Administrator Device Identifier Shelf Expiration Date Model / Serial / Lot Ancr Sut [id number] Swivelock Dbl Loaded - [id number] Implanted:Qty: 2 on 02/18/2021 by Jose Alberto Rosario MD at [facility] Right: Shoulder [employer] 11/21/2024 [id number] -2 / / [id number] Ancr Sut 4.75x19.1mm Speedbridge Swivelock Biocomposite - [id number] Implanted:Qty: 1 on 02/18/2021 by Jose Alberto Rosario MD at [facility] Right: Shoulder [employer] 09/23/2024 [id number] -4 / / [id number] Procedures Procedure Name Priority Date/Time Associated Diagnosis Comments CBC WITH AUTO DIFFERENTIAL Routine 03/24/2024 9:32 AM CDT Choledocholithiasis CBC WITH AUTO DIFFERENTIAL Routine 03/24/2024 9:32 AM CDT Choledocholithiasis COMP METABOLIC PANEL Routine 03/24/2024 9:32 AM CDT Choledocholithiasis SCAN-ULTRASOUND REPORT 03/16/2024 12:00 AM CDT LIPID PANEL Timed 11/06/2005 1:26 PM TECHNICIAN TELECOMMUNICATION SYSTEMS from Last 3 Months or Most Recently Relevant to Health Maintenance Results * (ABNORMAL) CBC WITH AUTO DIFFERENTIAL (03/24/2024 9:32 AM CDT) WHITE BLOOD COUNT 10.5 4.5 - 11.0 thou/cu mm 03/24/2024 9:35 AM CDT [facility] RED BLOOD COUNT 4.43 4.30 - 5.90 mil/cu mm 03/24/2024 9:35 AM CDT [facility] HEMOGLOBIN 14.2 13.5 - 17.5 g/dL 03/24/2024 9:35 AM CDT [facility] HEMATOCRIT 42.7 37.0 - 53.0 % 03/24/2024 9:35 AM CDT [facility] MCV 96 80 - 100 fL 03/24/2024 9:35 AM CDT [facility] MCH 32.1 26.0 - 34.0 pg 03/24/2024 9:35 AM CDT [facility] MCHC 33.3 32.0 - 36.0 g/dL 03/24/2024 9:35 AM CDT [facility] RDW 13.2 11.5 - 15.5 % 03/24/2024 9:35 AM CDT [facility] PLATELET COUNT 394 140 - 440 thou/cu mm 03/24/2024 9:35 AM CDT [facility] MPV 9.8 6.5 - 11.0 fL 03/24/2024 9:35 AM CDT [facility] % NEUT 70.2 % 03/24/2024 9:35 AM CDT [facility] % LYMPH 16.5 % 03/24/2024 9:35 AM CDT [facility] % MONO 9.5 % 03/24/2024 9:35 AM CDT [facility] % EOS 3.0 % 03/24/2024 9:35 AM CDT [facility] % BASO 0.8 % 03/24/2024 9:35 AM CDT [facility] ABSOLUTE NEUTROPHILS 7.4(H) 1.7 - 7.0 thou/cu mm 03/24/2024 9:35 AM CDT [facility] ABSOLUTE LYMPHOCYTES 1.7 0.9 - 2.9 thou/cu mm 03/24/2024 9:35 AM CDT [facility] ABSOLUTE MONOCYTES 1.0(H) <0.9 thou/cu mm 03/24/2024 9:35 AM CDT [facility] ABSOLUTE EOSINOPHILS 0.3 <0.5 thou/cu mm 03/24/2024 9:35 AM CDT [facility] ABSOLUTE BASOPHILS 0.1 <0.3 thou/cu mm 03/24/2024 9:35 AM CDT [facility] Blood BLOOD SPECIMEN / Unknown Venipuncture / Unknown 03/24/2024 9:32 AM CDT 03/24/2024 9:32 AM CDT Kenneth Giles MD HEMATOLOGY [facility] [address] [place] [address], * (ABNORMAL) COMP METABOLIC PANEL (03/24/2024 9:32 AM CDT) SODIUM 136 136 - 145 mmol/L 03/24/2024 6:53 PM CDT [facility] POTASSIUM 4.2 3.5 - 5.1 mmol/L 03/24/2024 6:53 PM T [facility] CHLORIDE 99 98 - 107 mmol/L 03/24/2024 6:53 PM T [facility] CO2,TOTAL 27 22 - 29 mmol/L 03/24/2024 6:53 PM T [facility] ANION GAP 10 5 - 18 03/24/2024 6:53 PM T [facility] GLUCOSE 103(H) 70 - 99 mg/dL 03/24/2024 6:53 PM T [facility] CALCIUM 9.2 8.6 - 10.0 mg/dL 03/24/2024 6:53 PM T [facility] BUN 11 6 - 20 mg/dL 03/24/2024 6:53 PM T [facility] CREATININE 0.80 0.70 - 1.20 mg/dL 03/24/2024 6:53 PM CDT [facility] BUN/CREAT RATIO 14 10 - 20 6:53 PM CDT [facility] eGFR >90 >90 mL/min/1.7 3m2 03/24/2024 6:53 PM CDT [facility] Comment:As of 2021, eG FR is calculated by the CKD-EPI creatinine equation without race adjustment. ??eGFR can be influenced by muscle mass, exercise, and diet. ??The reported eGFR is an estimation only and is only applicable if the renal function is stable. ALBUMIN 3.8(L) 4.0 - 4.9 g/dL 03/24/2024 6:53 PM CDT [facility] PROTEIN,TOTAL 7.3 6.0 - 8.0 g/dL 03/24/2024 6:53 PM CDT [facility] BILIRUBIN,TOTAL 2.1(H) 0.0 - 1.2 mg/dL 03/24/2024 6:53 PM CDT [facility] ALK PHOSPHATASE 89 40 - 129 IU/L 03/24/2024 6:53 PM CDT [facility] ALT (SGPT) 93(H) 10 - 50 IU/L 03/24/2024 6:53 PM CDT [facility] AST (SGOT) 51(H) 10 - 50 IU/L 03/24/2024 6:53 PM CDT [facility] Blood BLOOD SPECIMEN / Unknown Venipuncture / Unknown 03/24/2024 9:32 AM CDT 03/24/2024 9:32 AM CDT Kenneth Giles MD [facility] [address] [place] [address], [place] * SCAN-ULTRASOUND REPORT (03/16/2024 12:00 AM CDT) Anatomical Region Laterality Modality Other Scanner OTHER * LIPID PANEL (11/06/2005 1:26 PM TECHNICIAN TELECOMMUNICATION SYSTEMS) CHOLESTEROL,TOTAL 168 110 - 199 mg/dL [facility] TRIGLYCERIDES 57 40 - 149 mg/dL [facility] HDL CHOLESTEROL 43 >40 mg/dL [facility] CHOL/HDL RATIO 3.91 <4.51 [facility] LDL CHOLESTEROL 114 <131 mg/dL [facility] PATIENT STATUS Fasting [facility] 11/06/2005 1:26 PM TECHNICIAN TELECOMMUNICATION SYSTEMS 11/06/2005 6:43 PM TECHNICIAN TELECOMMUNICATION SYSTEMS Merrill Lawson MD CHEMISTRY [facility] INTERNAL ZIP [address] [place] [address] from Last 3 Months or Most Recently [...] 7:25 AM 09/03/2012 2:47 PM Care Teams Hotel Reservationist Relationship Specialty [place] [address] [place] [address] PCP - General Family Practice 02/27/23
--- OUTSIDE RECORDS SUMMARY | 2024-03-29 23:49 | XMS_ITS | Encounter Summary ---
Author Organization [facility] Address [address] [place] [address] Phone Care Team Providers Care Wick And Base Assembler Name Role Phone Provider, Outside Primary Care Provider Unavaila ble Encounter Details Date Type Department Care Team (Late st Contact Info) Description 03/18/2024 Orders Only Unspecified Department [place] Unknown, [...] [facility] [address] [address] Bradley Bynum MD [address] [phone] Scheduled Discharge Disposition: Discharged to home or self care (routine discharge) Scheduled Procedures Name Priority Associated Diagnoses Date/Ti me GI ERCP DIAGNOSTIC Semi-Elective (< 2 months) Encounter for removal of biliary stent documented as of this encounter Procedures Procedure Name Priority Date/Time Associated Diagnosis Comments TELEMETRY STRIPS 03/18/2024 1:35 AM CDT documented in this encounter Results * TELEMETRY STRIPS (03/18/2024 1:35 AM CDT) Narrative 03/18/2024 1:35 AM CDT Ordered by an unspecified provider. Provider Unknown RAD ECHO documented in this encounter Visit Diagnoses Not on filedocumented in this encounter Care Teams Wick And Base Assembler Relationship Specialty Start Date End Date Provider, Outside [place] [address] PCP - General 03/21/24 documented as of this encounter
--- OUTSIDE RECORDS SUMMARY | 2024-03-29 23:49 | XMS_ITS | Encounter Summary ---
Author Organization [facility] Address [address] [place] [address] Phone Care Team Providers Care Client Evaluator Name Role Phone Provider, Outside Primary Care [...] [facility] [address] [address] Bradley Bynum MD [address] [phone] Scheduled Discharge Disposition: Discharged to home or self care (routine discharge) Scheduled Procedures Name Priority Associated Diagnoses Date/Ti me GI ERCP DIAGNOSTIC Semi-Elective (< 2 months) Encounter for removal of biliary stent documented as of this encounter Procedures Procedure Name Priority Date/Time Associated Diagnosis Comments TELEMETRY STRIPS 03/18/2024 8:10 AM CDT documented in this encounter Results * TELEMETRY STRIPS (03/18/2024 8:10 AM CDT) Narrative 03/18/2024 8:10 AM CDT Ordered by an unspecified provider. Provider Unknown RAD ECHO documented in this encounter Visit Diagnoses Not on filedocumented in this encounter Care Teams Client Evaluator Relationship Specialty Start Date End Date Provider, [place] [address] PCP - General 03/21/24 documented as of this encounter
--- OUTSIDE RECORDS SUMMARY | 2024-03-29 23:49 | XMS_ITS | Encounter Summary ---
Author Organization [facility] Address [address] [place] [address] Phone Care Team Providers Care Admissions Clerk Name Role Phone Provider, Outside Primary Care [...] [facility] [address] [address] Bradley Bynum MD [address] [phone] Scheduled Discharge Disposition: Discharged to home or self care (routine discharge) Scheduled Procedures Name Priority Associated Diagnoses Date/Ti me GI ERCP DIAGNOSTIC Semi-Elective (< 2 months) Encounter for removal of biliary stent documented as of this encounter Procedures Procedure Name Priority Date/Time Associated Diagnosis Comments TELEMETRY STRIPS 03/17/2024 5:36 PM CDT documented in this encounter Results * TELEMETRY STRIPS (03/17/2024 5:36 PM CDT) Narrative 03/17/2024 5:36 PM CDT Ordered by an unspecified provider. Provider Unknown RAD ECHO documented in this encounter Visit Diagnoses Not on filedocumented in this encounter Care Teams Admissions Clerk Relationship Specialty Start Date End Date Provider, [place] [address] PCP - General 03/21/24 documented as of this encounter
--- OUTSIDE RECORDS SUMMARY | 2024-03-29 23:49 | XMS_ITS | Encounter Summary ---
Author Organization [facility] Address [address] [place] [address] Care Team Providers Care Manager Architecture Name Role Phone Kenneth Giles MD Primary Care Provider + [phone] Kenneth Giles MD Unavailable [phone] Mikayla Concepcion MD Unavailable Kenneth Giles MD Unavailable [phone] Mikayla Concepcion MD Unavailable [facility] Primary Care Provider [facility] Unavailabl e Encounter Details Date Type Department Care Team (Late st Contact Info) Description 11/17/2021 MyC Medical Advice [facility] [address] [place] [address] Nathalia Vasquez MA Social History Tobacco [...] COVID-19? No / Unsure 11/16/2021 10:26 AM MEAT CUTTER documented as of this encounter Plan of Treatment Not on file documented as of this encounter Visit Diagnoses Not on filedocumented in this encounter Care Teams Manager Architecture Relationship Specialty Start Date End Date Kenneth Giles MD PCP - General Family Practice 05/13/13 07/23/22 [facility] [address] [place] [address] PCP - General 03/19/23 [place] [address] [place] [address] Assigned PCP 10/02/21 11/19/21 [place] [address] [place] [address] Assigned PCP 11/20/21 11/26/21 [place] [address] [place] [address] Assigned PCP 11/27/21 04/07/22 [place] [address] [place] [address] Assigned PCP 04/08/22 03/15/24 [facility] [address] [place] [address] Assigned PCP 03/16/24 documented as of this encounter
--- OUTSIDE RECORDS SUMMARY | 2024-03-29 23:49 | XMS_ITS | Encounter Summary ---
Author Organization [facility] Address [address] [place] [address] Phone Care Team Providers Care Regional Flatbed Truck Driver Name Role Phone Unavailable Primary Care Provider Unavailabl e Encounter Details Date Type Department Care Team (Latest Contact Info) Description 03/17/2024 Travel Social History Tobacco Use Types Packs/Day Years [...] [facility] [address] [address] Bradley Bynum MD [address] [address] Scheduled Discharge Disposition: Discharged to home or self care (routine discharge) Scheduled Procedures Name Priority Associated Diagnoses Date/Ti me GI ERCP DIAGNOSTIC Semi-Elective (< 2 months) Encounter for removal of biliary stent documented as of this encounter Visit Diagnoses Not on filedocumented in this encounter
--- OUTSIDE RECORDS SUMMARY | 2024-03-29 23:50 | XMS_ITS | Encounter Summary ---
Author Organization [facility] Address [address] [place] [address]. [place] [address] Care Team Providers Care Marketing Engineer Name Role Phone Kenneth Giles MD Primary Care Provider Tammy Sinclair APRN RESOURCES REPRESENTATIVE Unavailable + Kenneth Giles MD Unavailable [phone] Mikayla Concepcion MD Unavailable Kenneth Giles MD Unavailable [phone] Mikayla Concepcion MD Unavailable Kenneth Giles MD Unavailable [phone] Mikayla Concepcion MD [facility] Unavailabl e Encounter Details Date Type Department Care Team (Late st Contact Info) Description 08/05/2019 MyC Medical Advice [facility] [address] [place] [address] [place] [address] [facility] [place] [address] Social History Tobacco Use Types [...] on filedocumented in this encounter Care Teams Marketing Engineer Relationship Specialty Start Date End Date Kenneth Giles MD PCP - General Family Practice 05/13/13 07/23/22 [facility] [address] [place] [address] PCP - General 03/19/23 Tammy Sinclair APRN RESOURCES REPRESENTATIVE [address] [place] [address] Assigned PCP 01/12/19 10/25/19 [place] [address] [place] [address] Assigned PCP 10/26/19 05/21/21 [place] [address] [place] [address] Assigned PCP 05/22/21 10/01/21 [place] [address] [place] [address] Assigned PCP 10/02/21 11/19/21 [place] [address] [place] [address] Assigned PCP 11/20/21 11/26/21 [place] [address] [place] [address] Assigned PCP 11/27/21 04/07/22 [place] [address] [place] [address] Assigned PCP 04/08/22 03/15/24 [facility] [address] [place] [address] Assigned PCP 03/16/24 documented as of this encounter
--- OUTSIDE RECORDS SUMMARY | 2024-03-29 23:50 | XMS_ITS | Continuity of Care Document ---
Author Organization [facility] Address [address] [address] [place] [address] Phone Care Team Providers Care Dress Marker Name Role Phone Oni Friend MD Unavailable Unavailable Allergies, Adverse Reactions, Alerts Substance Reaction Status Criticality No Known allergies Medications Medication Instructions Dosage Effective Dates (start - stop) Status Comments No Drug Therapy Prescribed Advance Directives Directive Yes / No Effective Date File Name No Information Encounters Encounter Description Practice Location Reason(s) For Visit Diagnoses Date Provider Providers Copied on Encounter [facility], [address] [address], [place], [place], [id number], [place] tel:[phone] [facility] No Information Ronna Bunn. [address] [facility], [place], [place], [id number], [place]. tel:[phone] Family History Family Member Type Diagnosis Age At Onset No Information Payers Payer name Insurance type Covered alliance party ID Authorok andrews(s) [facility] [id number] Social History Type Description Quantity Date Captured [...]
--- OUTSIDE RECORDS SUMMARY | 2024-03-29 23:50 | XMS_ITS | Encounter Summary ---
Author Organization [facility] Address [address] [place] [address] Care Team Providers Care Medical Office Assistant Name Role Phone Kenneth Giles MD Primary Care Provider [phone] Tammy Sinclair APRN WEATHERSTRIP MACHINE OPERATOR Unavailable + Kenneth Giles MD Unavailable [phone] Mikayla Concepcion MD Unavailable Kenneth Giles MD Unavailable [phone] Mikayla Concepcion MD Unavailable Kenneth Giles MD Unavailable [phone] Mikayla Concepcion MD Unavailable [facility] Laurie Weisston Primary Care Provider [facility] Unavailabl e Encounter Details Date Type Department Care Team (Late st Contact Info) Description 03/17/2019 MyC Medical Advice [facility] [address] [place] [address] Carrol Rosenberg Social History Tobacco Use [...] on filedocumented in this encounter Care Teams Medical Office Assistant Relationship Specialty Start Date End Date Kenneth Giles MD PCP - General Family Practice 05/13/13 07/23/22 [facility] [address] [place] [address] PCP - General 03/19/23 Tammy Sinclair APRN WEATHERSTRIP MACHINE OPERATOR [address] [place] [address] Assigned PCP 01/12/19 10/25/19 [place] [address] [place] [address] Assigned PCP 10/26/19 05/21/21 [place] [address] [place] [address] Assigned PCP 05/22/21 10/01/21 [place] [address] [place] [address] Assigned PCP 10/02/21 11/19/21 [place] [address] [place] [address] Assigned PCP 11/20/21 11/26/21 [place] [address] [place] [address] Assigned PCP 11/27/21 04/07/22 [place] [address] [place] [address] Assigned PCP 04/08/22 03/15/24 [facility] [address] [place] [address] Assigned PCP 03/16/24 documented as of this encounter
--- OUTSIDE RECORDS SUMMARY | 2024-03-29 23:50 | XMS_ITS | Encounter Summary ---
Author Organization [facility] Address [address] [place] [address] Care Team Providers Care Systems Test Engineer Name Role Phone Kenneth Giles MD Primary Care Provider [phone] Tammy Sinclair WAREHOUSE SHIFT SUPERVISOR BIOMEDICAL ENGINEER Unavailable + Kenneth Giles MD Unavailable [phone] Mikayla Concepcion MD Unavailable Kenneth Giles MD Unavailable [phone] Mikayla Concepcion MD Unavailable Kenneth Giles MD Unavailable [phone] Mikayla Concepcion MD [facility]available [facility] Primary Care Provider [facility] Unavailabl e Encounter Details Date Type Department Care Team (Late st Contact Info) Description 03/11/2019 MyC Medical Advice [facility] [address] [facility], [address] [place] [address] Hansa Vasquez, BLENDING COORDINATOR Social History Tobacco Use Types Packs/Day Years [...] on filedocumented in this encounter Care Teams Systems Test Engineer Relationship Specialty Start Date End Date Kenneth Giles MD PCP - General Family Practice 05/13/13 07/23/22 [facility] [address] [place] [address] PCP - General 03/19/23 Tammy Sinclair APRN BIOMEDICAL ENGINEER [address] [place] [address] Assigned PCP 01/12/19 10/25/19 [place] [address] [place] [address] Assigned PCP 10/26/19 05/21/21 [place] [address] [place] [address] Assigned PCP 05/22/21 10/01/21 [place] [address] [place] [address] Assigned PCP 10/02/21 11/19/21 [place] [address] [place] [address] Assigned PCP 11/20/21 11/26/21 [place] [address] [place] [address] Assigned PCP 11/27/21 04/07/22 [place] [address] [place] [address] Assigned PCP 04/08/22 03/15/24 [facility] [address] [place] [address] Assigned PCP 03/16/24 documented as of this encounter
--- OUTSIDE RECORDS SUMMARY | 2024-03-29 23:50 | XMS_ITS | Encounter Summary ---
Author Organization [facility] Address [address] [place] [address] Care Team Providers Care Senior Policy Advisor Name Role Phone Kenneth Giles MD Primary Care Provider [phone] Tammy Sinclair APRN COMPLEX CARE NURSE PRACTITIONER Unavailable + Kenneth Giles MD Unavailable [phone] Mikayla Concepcion MD Unavailable Kenneth Giles MD Unavailable [phone] Mikayla Concepcion MD Unavailable Kenneth Giles MD Unavailable [phone] Mikayla Concepcion MD Unavailable [facility] [place] Primary Care Provider [facility] Unavailabl e Encounter Details Date Type Department Care Team (Late st Contact Info) Description 07/01/2019 MyC Medical Advice [facility] [address] [facility], [address] [place] [address] Hansa Pedersen CMA Social History Tobacco Use Types Packs/Day Years [...] on filedocumented in this encounter Care Teams Senior Policy Advisor Relationship Specialty Start Date End Date Kenneth Giles MD PCP - General Family Practice 05/13/13 07/23/22 [facility] [place] [address] [place] [address] PCP - General 03/19/23 Tammy Sinclair APRN COMPLEX CARE NURSE PRACTITIONER [address] [place] [address] Assigned PCP 01/12/19 10/25/19 [place] [address] [address] [place] [address] Assigned PCP 10/26/19 05/21/21 [place] [address] [place] [address] Assigned PCP 05/22/21 10/01/21 [place] [address] [place] [address] Assigned PCP 10/02/21 11/19/21 [place] [address] [place] [address] Assigned PCP 11/20/21 11/26/21 [place] [address] [place] [address] Assigned PCP 11/27/21 04/07/22 [place] [address] [place] [address] Assigned PCP 04/08/22 03/15/24 [facility] [address] [place] [address] Assigned PCP 03/16/24 documented as of this encounter
--- OUTSIDE RECORDS SUMMARY | 2024-03-29 23:50 | XMS_ITS | Continuity of Care Document ---
Author Organization Z [facility] Address [address] [place] [address] [address] [place] [address] Phone Care Team Providers Care Maternity Nurse Name Role Phone Unavailable Unavailable Unavailable Allergies, [...] Date Provider Providers Copied on Encounter Z [facility], [address] [place] [address], [address], [place] tel:[phone] [facility] No Information 0 3 No Information Office/Outpa tient Visit,Est, Mod Z [facility], [address] [place], [place] [address] [place] [address], [address], [place] tel:[phone] [facility] No Information 3[address] 3 Medardo Montenegro. [facility], [address] [facility] [address], [place], [id number], [place]. tel:[phone] Referring Provider: KACEY Gaytan [address] [place], [address]. tel:[phone] Z [facility], [address], [place], [address], tel:[phone] [facility] No Information 3 Medardo Lan. [facility], [address] [place] [address] [address], [place], [id number], [place]. tel:[phone] Referring Provider: Rhianna Lowry [facility] [address] [place] [address], [address]. tel:[phone] Z [facility], [address] [place], [place] [address], [place], [address], [place] tel:[phone] [facility] No Information 3 Jane Novak. [facility], [address] [place] [address] [address], [place], [id number], [place]. tel:[phone] Referring Provider: Rhianna Lowry [facility] [address] [place] [address], [address]. tel:[phone] Z [facility], [address] [place], [place] [address], [place], [address], [place] tel:[phone] [facility] No Information 2 Jane Novak. [facility], [address] [place] [address] [address], [place], [id number], [place]. tel:[phone] Referring Provider: [facility] Lowry [facility] [address] [place], [address]. tel:[phone] Z [facility], [address] [place], [place] [address], [place], [address], [place] tel:[phone] [facility] No Information 2 Lucio Franco. [facility], [address] [place] [address], [address], [place], [place], [id number], [place]. tel:[phone] Family History Family Member Type Diagnosis Age At Onset No Information Payers Payer name Insurance type Covered alliance party ID Chandni andrews(s) [facility] [id number] [facility] [id number] Social History Type Description Quantity Date Captured [...]
== END 2024-03-17 00:21 | disposition home or self-care (01) ==
PROVIDERS: PCP Family Medicine; Visit Provider Family Medicine
DX: K80.50 Calculus of bile duct without cholangitis or cholecystitis without obstruction (principal)
CPT/HCPCS: A0425; A0429